=== PATIENT | female | born 1960 | race Caucasian/White ===

== ENCOUNTER 2016-09-18 09:38 | Emergency (ER) | payer OTHER ==
[~2016-09-18] VITALS: Ht 170.2 cm; Wt 95.3 kg
[~2016-09-18 09:38] MED LIST: ALDACTONE25 MG PO; AMITRIPTYLINE H25 M2 PO; ASPIRIN EC325 M1 PO; ASPIRIN325 PO; CIPROFLOXACIN500 M1 PO; COUMADIN 5 MG TA5 M1 PO; COUMADIN 5 MG TA5 MG PO; DIABETA 2.5MG2.5 MG PO; DILTIAZEM ER240 M1 PO; DOXYCYCLINE 10100 M1 PO; ELIQUIS5 MG PO; FERRO-TIME325 MG PO; FLECAINIDE ACE100 MG PO; FLOMAX0.4 MG PO; GLUCOPHAGE500 MG PO; GLYBURIDE 5 MG T5 M1 PO; HUMALOG100 UNIT/1 SQ; HYDROCERIN CREA1 JAR TOP; LANOXIN 0.250.25 M1 PO; LANTUS SC; LASIX 80 MG TAB80 M1 GT; LEVOTHYROXIN0.125 M1 PO; LEVOXYL100 MCG PO; LISINOPRIL10 MG PO; LOPRESSOR 50 MG50 M1 PO; LOPRESSOR PO; LOVASTATIN 20 M20 MG PO; NOHOMEMEDICATIONS; NORCO 5-325 TA1 EACH PO; PACERONE 200 M200 M1 PO; PERCOCET 7.5-51 EACH PO; PHENERGAN 25 MG25 M1 PO; PRADAXA150 MG PO; PRILOSEC 20 MG20 MG PO; PRILOSEC40 MG PO; PROPAFENONE 22225 MG PO; SIMVASTATIN40 MG PO; TAMSULOSIN HCL0.4 MG PO; TOPROL XL100 MG PO; VICODIN 5-5001 EACH PO; XANAX 0.25 MG0.25 MG PO; ZOFRAN4 MG PO
== END 2016-09-18 13:30 | disposition home or self-care (01) ==
LOC: ER 09:38
DX: M17.12 Unilateral primary osteoarthritis, left knee (principal); S09.90XA Unspecified injury of head, initial encounter; S90.32XA Contusion of left foot, initial encounter; E11.9 Type 2 diabetes mellitus without complications; I10 Essential (primary) hypertension; I48.91 Unspecified atrial fibrillation; E78.5 Hyperlipidemia, unspecified; E11.40 Type 2 diabetes mellitus with diabetic neuropathy, unspecified; Z88.5 Allergy status to narcotic agent; W01.198A Fall on same level from slipping, tripping and stumbling with subsequent striking against other object, initial encounter; Y93.89 Activity, other specified; Y92.89 Other specified places as the place of occurrence of the external cause; Y99.8 Other external cause status

== ENCOUNTER 2016-10-03 13:22 | Emergency (ER) | payer OTHER ==
[~2016-10-03] VITALS: Ht 170.2 cm; Wt 95.3 kg
== END 2016-10-03 14:33 | disposition home or self-care (01) ==
LOC: ER 13:22
DX: Z48.01 Encounter for change or removal of surgical wound dressing (principal); I10 Essential (primary) hypertension; I48.91 Unspecified atrial fibrillation; E78.5 Hyperlipidemia, unspecified; E09.40 Drug or chemical induced diabetes mellitus with neurological complications with diabetic neuropathy, unspecified; Z90.89 Acquired absence of other organs; Z88.5 Allergy status to narcotic agent

== ENCOUNTER 2018-08-11 07:10 | Inpatient (IN) | payer OTHER ==
[2018-08-11] VITALS (7 sets, daily range): BP systolic 175–1952; BP diastolic 93–138
[~2018-08-11] VITALS: Ht 170.2 cm; Wt 113.4 kg
--- NOTE | ~2018-08-11 | HC ---
[facility] [place] [address] CONSULTATION Name: GRACIELA NUÑEZ Room #: 354-P ADM IN M.R.#: [id number] Admission: 08/11/18 Attend Phys: Pablo Gardner MD Discharge: Date of : 56 Report #: [id number] THIS REPORT FOR: //name// CC: Pablo Morris DATE OF SERVICE: 08/11/2018 HISTORY OF PRESENT ILLNESS: The patient is a 58-year-old white female admitted with slurred speech. She is right handed. CT scan showed moderate atrophy, but MRI revealed acute infarct left posterior frontal as well as inferior reema. She also has had MRI of the lumbar and thoracic spine as noted. Question of a small perineural cyst at left T8-T9. She otherwise has some mild lumbar spondylosis. The patient complains of slurring of her speech and some weakness of both lower extremities with decreased function. Neurology is involved and we are seeing her in rehabilitation medicine consultation. ALLERGIES: CODEINE. MEDICATIONS: Please see the full medication listing. This includes vitamins, herbals, and supplements as well as over the counters per report. PAST MEDICAL HISTORY: Includes lymphedema, diabetes, hypertension, hyperlipidemia, kidney stones, bilateral lower extremity neuropathy, and cellulitis of the lower extremities. HABITS: No history of tobacco or alcohol abuse. SOCIAL HISTORY: She lives in a house with 2 sons, 2 steps in. She was on disability premorbidly with her lymphedema. She did not work, but her sons, both work. She did not utilize gait aids premorbidly. REVIEW OF SYSTEMS: No current complaints of chest pain, shortness of breath or abdominal discomfort. She notes the slurring of her speech. Denies any visual problems. Her upper extremity complaints, but does note bilateral lower extremity weakness and decreased function. PHYSICAL EXAMINATION: GENERAL: She is a pleasant, overweight 58-year-old white female with obvious dysarthria. If she speaks very slowly, she can be understood. VITAL SIGNS: Temperature 97.9, pulse 90, respirations 20, blood pressure 175/114. HEENT: She does have what appears to be some oral motor apraxia. EOMs appeared full. There was a hint of some disconjugate gaze. No obvious nystagmus. NEUROLOGIC: Functional range of motion of both upper extremities. Strength is a grade 4/5. Lower extremities: She does have significant chronic edema. [address] [address] CONSULTATION Name: GRACIELA NUÑEZ Room #: 354-P [facility] IN .R.#: [id number] Admission: 08/11/18 Attend Phys: Pablo Gardner MD Discharge: Date of : 56 Report #: [id number] Slight decreased sensation to proprioception bilateral large toes. Strength of the lower extremities is probably a grade 4- to 3+/5. DTRs are 1. There is no clonus. ASSESSMENT: A 58-year-old right-handed white female with the following problems: 1. 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 2. Dysarthria. 3. Rule out dysphagia. Speech therapy is involved. 4. Bilateral lower extremity weakness. 5. Functional mobility and ADL deficits. 6. Diabetes mellitus. 7. Hyperlipidemia. 8. Hypertension. 9. Chronic lymphedema. 10. Premorbid neuropathy. PLAN: Her stroke workup is underway. Therapy evaluations are underway as well to assess her current function. We will be glad to follow along with you regarding her rehab therapy needs. By: 1445 1554 Laci Rodas MD /nt
[2018-08-11 07:40] LABS: ABSOLUTE NEUTROPHILS 5.8 thou/uL (1.4-8.2); BASOPHILS 0.8 % (0.0-2.0); EOSINOPHILS 1.4 % (0.0-3.0); HEMATOCRIT 51.1 % (37.0-47.0); HEMOGLOBIN 17.5 gm/dL (12.0-15.0); LYMPHOCYTES 31.1 % (24.0-44.0); MCHC 34.3 g/dL (28.0-37.0); MCV 81.6 fL (80.0-100.0); MONOCYTES 7.7 % (1.0-8.0); PLATELET COUNT 163 thou/uL (150-400); RBC 6.26 mil/uL (4.20-5.00); RDW 14.3 % (10.5-14.5); WBC 9.9 thou/uL (4.0-11.0)
[2018-08-11 07:48] LABS: ANION GAP 7 mmol/L (7-16); BUN 21 mg/dL (7-18); CALCIUM 10.5 mg/dL (8.5-10.1); CHLORIDE 102 mmol/L (98-107); CO2 27 mmol/L (21-32); CREATININE 0.9 mg/dL (0.6-1.0); GLUCOSE 295 mg/dL (74-106); SODIUM 136 mmol/L (136-145)
[2018-08-11 07:50] LABS: APTT 27.3 Seconds (24.5-32.8); PROTIME 10.4 Seconds (9.3-11.4)
[2018-08-11 07:57] LABS: TROPONIN-I <0.06 ng/mL (<0.06)
[2018-08-11] MEDS ORDERED: LISINOPRIL40 MG PO (08:11)
[2018-08-11 08:31] LABS: BE(vivo) 2.1 mmol/L (-2 to +3); HCO3 27.3 mmol/L (22.0-26.0); PCO2 44.4 mmHg (35.0-45.0); pH 7.407 (7.360-7.450); sO2 95.3 % (92.0-98.0)
[2018-08-11 09:44] LABS: URINE BILIRUBIN NEGATIVE (Negative); URINE BLOOD TRACE (Negative); URINE CLARITY CLEAR; URINE COLOR YELLOW; URINE GLUCOSE-RANDOM* 3+ (Negative); URINE KETONES NEGATIVE (Negative); URINE LEUKOCYTES-REFLEX NEGATIVE (Negative); URINE NITRITE-REFLEX NEGATIVE (Negative); URINE PROTEIN (DIPSTICK) NEGATIVE (Negative); URINE UROBILINOGEN 0.2 E.U./dl (0.2-1.0)
--- NOTE | 2018-08-11 09:46 | EKG ---
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: : [id number] Requested By: Faustino Fuentes Order Number: [id number] MD: Hamilton Valenzuela Measurements Intervals [place] Rate: 91 P: ME: QRS: -8 QRSD: 96 T: 157 QT: 344 QTc: 424 Interpretive Statements Atrial fibrillation Poor R wave progression Nonspecific ST and T wave abnormality Compared to ECG 12/29/2015 07:14:22 No significant change was found Electronically Signed On 08-11-2018 9:45:47 RECOVERY OPERATOR HELPER by Hamilton Valenzuela [email or web address] <ELECTRONICALLY SIGNED> By: Hamilton Valenzuela MD, [facility] 08/11/18 0945 5 5 Hamilton Valenzuela MD, [facility] /EPI
[2018-08-11 10:32] LABS: TSH 5.818 uIU/mL (0.358-3.740)
--- NOTE | 2018-08-11 14:30 | NUR ---
ASSUMED PATIENT CARE FROM ED. PATIENT STATES THEY FELT WEAK LAST NIGHT AND THIS MORNING WHEN THEY WOKE UP HAD SLURRED SPEECH AND RIGHT SIDE FACIAL DROOP. PATIENT CAME TO [facility]. CT AND MRI WAS DONE, SEE RESULTS. NIH ON ARRIVAL WAS 6 IN ED, NIH WAS 3 UP[address] ARRIV[address] TO FLOOR[address] DID A SWALLOW EVAL UPON ARRIVAL TO FLOOR. CLEARED PATIENT TO EAT. KEEPING BLOOD PRESSURES ELEVATED TODAY 220/110. NURSE TO CALL FOR NEW ORDERS TOMORROW. PATIENT HAS SIGNIFICANT LYMPHEDEMA BLE. PATIENT USED TO GET LYMPEDEMA WRAPS BUT NO LONGER DOES. PATIENT STATES "THEY REALLY HELPED MY LEGS". NEURO ON CASE. ABLE TO MAKE NEEDS KNOWN.
[2018-08-12] VITALS (7 sets, daily range): BP systolic 141–224; BP diastolic 85–126
[2018-08-12 02:07] LABS: GLYCOHEMOGLOBIN (HGB A1C) 12.4 % (4.8-5.6)
--- NOTE | 2018-08-12 04:30 | NUR ---
PATIENT IS ALERT ORIENTED. PATIENT IS ON C PAP AT HS. PATIENT IS SBA WITH GAITBELT. PATIENT NIH WAS 3. PATIENT DENIES PAIN OR NAUSEA. PATIENT IS ON ROOM AIR DURING THE DAY. PATIENT IS RESTING COMFORTABLEY IN BED. WCM. PATIENT IS PROGRESSING TO GOALS.
[2018-08-12 04:49] LABS: ABSOLUTE NEUTROPHILS 4.4 thou/uL (1.4-8.2); BASOPHILS 0.5 % (0.0-2.0); HEMATOCRIT 47.9 % (37.0-47.0); LYMPHOCYTES 34.3 % (24.0-44.0); MCH 27.7 pg (26.0-34.0); MCHC 33.3 g/dL (28.0-37.0); MCV 83.2 fL (80.0-100.0); PLATELET COUNT 138 thou/uL (150-400); POLYS 57.2 % (36.0-66.0); RBC 5.76 mil/uL (4.20-5.00); RDW 14.5 % (10.5-14.5); WBC 7.7 thou/uL (4.0-11.0)
[2018-08-12 05:36] LABS: ANION GAP 9 mmol/L (7-16); BUN 15 mg/dL (7-18); CALCIUM 9.3 mg/dL (8.5-10.1); CHLORIDE 105 mmol/L (98-107); CHOLESTEROL 191 mg/dL (<200); CO2 26 mmol/L (21-32); CREATININE 0.7 mg/dL (0.6-1.0); GLUCOSE 209 mg/dL (74-106); HDL CHOLESTEROL 34 mg/dL (>40); LDL CHOLESTEROL 134 mg/dL (<100); MAGNESIUM 1.6 mg/dL (1.8-2.4); POTASSIUM 3.7 mmol/L (3.5-5.1); SODIUM 140 mmol/L (136-145); TC:HDL 5.6 Ratio (Not establshd); TRIGLYCERIDE 115 mg/dL (<150); VLDL 23 mg/dL (<40)
[2018-08-12 05:43] LABS: SERUM ASSESSMENT Clear
--- NOTE | 2018-08-12 13:04 | 2DMMODE ---
[facility] [address] [facility] [place] [address] 2 D/M-MODE ECHOCARDIOGRAM Name: SAVANNAHGRACIELA MAURICIO Room #: 354-P [facility] IN M.R.#: [id number] Admission: 08/11/18 Attend Phys: Pablo Gardner, Discharge: Date of : 56 Date of Service: 08/12/18 1304 Report #: [id number] THIS REPORT FOR: //name// APPROVED REPORT Study performed: 08/12/2018 12:19:14 EXAM: Comprehensive 2D, Doppler, and color-flow Echocardiogram Patient Location: Bedside Room #: 354 Status: routine BSA: 2.22 HR: 88 bpm BP: 194/126 mmHg Rhythm: Atrial Fibrillation Other Information Study Quality: Good Indications Atrial Fibrillation CVA. Hx: PAF, HTN, HLP, DM, morbid obesity. 2D Dimensions RVDd: 32.71 mm IVSd: 12.00 (7-11mm) LVOT Diam: 19.92 (18-24mm) LVDd: 47.52 mm PWd: 12.00 (7-11mm) Ascending Ao: 35.45 (22-36mm) LVDs: 36.67 (25-40mm) Aortic Root: 30.85 mm Volumes Left Atrial Volume (Systole) Single Plane 4CH: 84.10 mL Single Plane 2CH: 90.05 mL LA ESV Index: 42.00 mL/m2 Aortic Valve AoV Peak Elton.: 1.28 m/s AO Peak Gr.: 6.66 mmHg LVOT Max P.62 mmHg LVOT Max V: 0.95 m/s HATTIE Vmax: 2.31 cm2 Mitral Valve MV Decel. Time: 111.53 ms MV E Max Elton.: 1.20 m/s [facility] [address] [place] [address] 2 D/M-MODE ECHOCARDIOGRAM Name: SAVANNAHGRACIELA [facility] Room #: 354-P [facility] IN .R.#: [id number] Admission: 08/11/18 Attend Phys: Pablo Gardner, Discharge: Date of : 56 Date of Service: 08/12/18 1304 Report #: [id number] Pulmonary Valve PV Peak Elton.: 0.90 m/s PV Peak Gr.: 3.29 mmHg Tricuspid Valve TR Peak Elton.: 2.77 m/s RAP Estimate: 10.00 mmHg TR Peak Gr.: 30.73 mmHg PA Pressure: 41.00 mmHg Left Ventricle The left ventricle is normal size. Mild concentric left ventricular hypertrophy. Left ventricular systolic function is normal. LVEF is 50-55%. This study is not technically sufficient to allow evaluation of the LV diastolic function due to atrial fibrillation. Right Ventricle The right ventricle is normal size. The right ventricular systolic function is normal. Atria Left atrium is mildly dilated. No shunting noted with contrast bubble injection. Right atrium is borderline dilated. Aortic Valve Aortic valve leaflets are mildly thickened and calcified. Trace aortic regurgitation. There is no aortic valvular stenosis. Mitral Valve The mitral valve is normal in structure. Mild to moderate mitral regurgitation. No evidence of mitral valve stenosis. Tricuspid Valve The tricuspid valve is normal in structure. Mild tricuspid regurgitation. Estimated PAP is 40mmHG. Pulmonic Valve The pulmonary valve is normal in structure. Trace to mild pulmonic regurgitation. Great Vessels The aortic root is normal in size. The ascending aorta is normal in size. IVC is normal in size and collapses <50% with inspiration. Pericardium There is no pericardial effusion. [facility] [address] [place] [address] 2 D/M-MODE ECHOCARDIOGRAM Name: GRACIELA NUÑEZ [facility] Room #: 354-P [facility] IN M.R.#: [id number] Admission: 08/11/18 Attend Phys: Pablo Gardner, Discharge: Date of : 56 Date of Service: 08/12/18 1304 Report #: [id number] <Conclusion> The left ventricle is normal size. LVEF is 50-55%. The right ventricle is normal size. The right ventricular systolic function is normal. Left atrium is mildly dilated. Right atrium is borderline dilated. No shunting noted with contrast bubble injection. Aortic valve leaflets are mildly thickened and calcified. Trace aortic regurgitation. The mitral valve is normal in structure. Mild to moderate mitral regurgitation. The tricuspid valve is normal in structure. Mild tricuspid regurgitation. Estimated PAP is 40mmHG. The pulmonary valve is normal in structure. Trace to mild pulmonic regurgitation. There is no pericardial effusion. <ELECTRONICALLY SIGNED> By: Shilo Omer MD 08/12/18 1304 1304 1304 Shilo Omer MD /INF
--- NOTE | 2018-08-12 13:36 | NUR ---
PATIENT IS NOT MEDICALLY STABLE TO ADMIT TO ACUTE INPT REHAB TODAY, PER REPORT BY Jake TRONCOSO NP FOR REHAB. WE WILL CONTINUE TO FOLLOW AND WILL SEEK INSURANCE AUTHORIZATION WHEN PT DEMONSTRATES MEDICAL STABILITY FOR INTENSIVE INPT THERAPIES 3H/DAY. BP'S ARE BEING ADDRESSED PER PT'S ATTENDING, AND C ENGINEER FOR LANGUAGE HAS BEEN ADDED PER PIPE TRONCOSO DUE TO SPEECH CONCERNS.
--- NOTE | 2018-08-12 14:32 | NUR ---
INITIAL ASSESSMENT: DONTE reviewed chart and spoke with nursing and attending physician. Pt was admitted from home due to CVA. April consulted and is following pt for possible admission to in acute rehab pending insurance authorization. DONTE met with pt at bedside. Introduced role of SW. Pt is alert/orientated x 4. Pt reports that she lives at home with her family. Prior to admission, pt was independent with ADLs. No use of DME. No hx of HH or SNF/Rehab placement. Pt is agreeable with considering rehab. DONTE discussed case with liaison inspection laboratory assistant who states they will submit for insurance authorization in anticipate of Wednesday admission to . DONTE is following to assist as needed with discharge planning.
--- NOTE | 2018-08-12 14:57 | NUR ---
ASSUMED PATIENT CARE AT 0715. A&OX4. NIH 2. PATIENT HAS RIGHT SIDED FACIAL DROOP AND SLURRED SPEECH. ALL BLOOD PRESSURE MEDS RESUMED. CARDIOLOGY CONSULTED TODAY SINCE PATIENT WAS ON ELIQUIS AND STILL HAD CVA. NEURO ON CASE. [facility] [place] [facility] [place] TODAY. PLAN IS TO MONITOR OVER THE WEEKEND. GET BLOOD PRESSURE AND DIABETES UNDER CONTROL AND DISCHARGE TO [address] [place] [address] ON WEDNESDAY.
--- NOTE | 2018-08-12 15:54 | NUR ---
Attempted to do inpatient eval for lower extremity lymphedema this date. Pt is not available due to being in an MRI. Nursing states that she would be umavailable for about 40 minutes so no initial evalualtion for lymphedema has been done this date. Will re-attempt next treatment week . Amarilis Mckay,PT/CLT
--- NOTE | 2018-08-12 16:54 | NUR ---
WOUND CONSULT: PT. WAS SEEN TODAY BY DR. KAUR AND MYSELF. PT. HAS LYMPEDEMA TO HER BILATERAL LOWER EXTREMITYS. THERE ARE NO ULCERATIONS NOTED. RECOMMENDATIONS: LYMPEDEMA THERAPY PT. AND STAFF NURSE WERE INSTRUCTED ON PLAN OF CARE.
--- NOTE | 2018-08-13 00:21 | NUR ---
patient recived two 500ml bolus. provider aware of bp. orders to monitor mental status
--- NOTE | 2018-08-13 02:36 | NUR ---
patient is alert and oriented. patient is times one assist with walker. patient is on room air. cpap hs but patient doesnt like cpap for very long. patient is on continious pulse ox hs for sleep apnea. patient was given 1000ml blous to encourage bp to rise. provider notified that bp only got to 159/ 80's and orders recived to just monitor for changes in orientation. patient deneis pain. patients nih is 3 due to slurring and facial droop. patient is resting comfortabley in bed. wcm. patient is progressing to goals. lymphaedema nurse will consult on wednesday. lower extremities elevated in the mean time.
--- NOTE | 2018-08-13 02:50 | NUR ---
PATIENT STATED SHE WAS [facility].
[2018-08-13 03:50] VITALS: BP 167/98
[2018-08-13 08:45] VITALS: BP 162/103
[2018-08-13 09:44] LABS: HEMATOCRIT 47.7 % (37.0-47.0); HEMOGLOBIN 15.8 gm/dL (12.0-15.0); MCH 27.8 pg (26.0-34.0); MCHC 33.1 g/dL (28.0-37.0); MCV 83.9 fL (80.0-100.0); RBC 5.69 mil/uL (4.20-5.00); RDW 14.6 % (10.5-14.5); WBC 9.8 thou/uL (4.0-11.0)
[2018-08-13 09:53] LABS: CALCIUM 9.6 mg/dL (8.5-10.1); CREATININE 0.9 mg/dL (0.6-1.0); MAGNESIUM 1.8 mg/dL (1.8-2.4); POTASSIUM 3.9 mmol/L (3.5-5.1)
[2018-08-13 12:06] VITALS: BP 187/123
[2018-08-13 15:43] VITALS: BP 164/86
--- NOTE | 2018-08-13 17:47 | NUR ---
ASSUMED PATIENT CARE AT 0700. A/O X4. NIH X3. PATIENT FEELS WEAKNESS GENERLIZED. UNSTEADY JUN WHEN WALK. ELEVATED BP THAT DR WEST LIKE KEEP AT 150-180 SYSTOLIC. FMILLY BEDSIDE. TOLERATED PUREED DIET WITH THIN LIQUID. SLOWLY TOWARDS POC GOALS.
[2018-08-13 19:11] VITALS: BP 154/101
[2018-08-14 02:45] VITALS: BP 159/100
[2018-08-14 05:30] LABS: HEMATOCRIT 46.2 % (37.0-47.0); HEMOGLOBIN 15.5 gm/dL (12.0-15.0); MCH 27.3 pg (26.0-34.0); MCHC 33.5 g/dL (28.0-37.0); MCV 81.5 fL (80.0-100.0); RBC 5.68 mil/uL (4.20-5.00); RDW 14.4 % (10.5-14.5)
[2018-08-14 05:43] LABS: CALCIUM 9.3 mg/dL (8.5-10.1); CREATININE 0.8 mg/dL (0.6-1.0); MAGNESIUM 1.9 mg/dL (1.8-2.4); POTASSIUM 3.6 mmol/L (3.5-5.1)
--- NOTE | 2018-08-14 06:03 | NUR ---
PATIENT IS SLOWLY PROGRESSING IN HER CARE PLAN. VITAL SIGNS STABLE THROUGHOUT SHIFT WITH BLOOD PRESSURE IN ACCEPTABLE RANGE. FULLY ORIENTED, PATIENT IS ABLE TO COMMUNICATE NEEDS EFFECTIVELY AND PARTICIPATE IN CARE. NIH STROKE ASSESSMENT PER PROTOCOL WITH PATIENT STAYING AT 3. PATIENT WAS UNWILLING TO WEAR CPAP OVERNIGHT, SO OXYGEN PER NASAL CANNULA PROVIDED FOR COMFORT. PATIENT WAS ABLE TO AMBULATE TO THE RESTROOM MULTIPLE TIMES WITH ASSISTANCE INCIDENT FREE. SWALLOW PRECAUTIONS FOLLOWED PER ORDERS. CONTINUE PLAN OF CARE.
[2018-08-14 09:00] VITALS: BP 191/99
[2018-08-14 11:22] VITALS: BP 157/99
[2018-08-14 14:38] VITALS: BP 158/95
--- NOTE | 2018-08-14 18:35 | NUR ---
PATIENT STATES SHE FEELS STRONGER TDOAY. AMBULATED TO BATHROOM WITH STEADY GAIT USING A WALKER. SHE IS ALERT ORIENED X4. DENIES PAIN. CONT OF BOWEL AND BLADDER. WILL CONT WITH PLAN OF CARE WHICH INCLUDES GOING TO REHAB IN THE AM. BP KEPT BETWEEN 160-[address] ORDERS.
[2018-08-14 19:15] VITALS: BP 177/97
[2018-08-14 20:50] VITALS: BP 151/78
[2018-08-15 03:26] VITALS: BP 163/111
--- NOTE | 2018-08-15 03:28 | NUR ---
PATIENT IS PROGRESSING IN HER CARE PLAN. VITAL SIGNS STABLE WITH PATIENT HAVING NO COMPLAINTS OF PAIN OR NAUSEA. PATIENT IS FULLY ORIENTED AND ABLE TO CALL APPROPRIATELY FOR NEEDS. NIH ASSESSED FREQUENTLY WITH PATIENT SCORING STAYING CONSISTENTLY AT 3. PATIENT IS BREATHING FINE ON ROOM AIR EVIDENCED BY READINGS FROM CONTINUOUS SATURATION MONITOR. SHE DID REFUSE CPAP AGAIN OVERNIGHT. SHE HAS BEEN UP MULTIPLE TIMES TO BATHROOM WITH STANDBY ASSISTANCE INCIDENT FREE. PATIENT IS ANXIOUS FOR POSSIBLE DISCHARGE TO [address] [place], [place] [address] TODAY. CURRENTLY AWAITING INSURANCE AUTHORIZATION. CONTINUE PLAN OF CARE.
[2018-08-15 05:33] LABS: HEMATOCRIT 47.1 % (37.0-47.0); HEMOGLOBIN 15.6 gm/dL (12.0-15.0); MCH 27.6 pg (26.0-34.0); MCHC 33.1 g/dL (28.0-37.0); MCV 83.5 fL (80.0-100.0); RBC 5.64 mil/uL (4.20-5.00); RDW 14.9 % (10.5-14.5); WBC 8.8 thou/uL (4.0-11.0)
[2018-08-15 05:40] LABS: CALCIUM 9.3 mg/dL (8.5-10.1); CREATININE 0.8 mg/dL (0.6-1.0); MAGNESIUM 1.9 mg/dL (1.8-2.4); POTASSIUM 3.7 mmol/L (3.5-5.1)
[2018-08-15 07:56] VITALS: BP 167/104
--- NOTE | 2018-08-15 08:13 | HC ---
[facility] [place] [address] CONSULTATION Name: GRACIELA NUÑEZ Room #: 354-P [facility] IN M.R.#: [id number] Admission: 08/11/18 Attend Phys: Pablo Gardner MD Discharge: Date of : 56 Report #: [id number] THIS REPORT FOR: //name// CC: Pablo Morris DATE OF SERVICE: 08/12/2018 CHIEF COMPLAINT: Bilateral lower extremity lymphedema. HISTORY OF PRESENT ILLNESS: This is a 58-year-old female patient who was admitted to the hospital with having lower extremity weakness, left greater than the right. She had slurred speech and was felt to have a cerebrovascular accident. She is noted to have bilateral lower extremity edema. I have been asked to see her with regard to control of the edema and evaluation of her dry skin. PAST MEDICAL HISTORY: Positive for hypertension, hyperlipidemia, diabetes mellitus, CVA, chronic lymphedema, hypothyroidism. She has a history of diabetes mellitus. ALLERGIES: CODEINE. MEDICATIONS: Include Eliquis, Synthroid, Glucophage, Elavil, Toprol-XL, Zestril. SOCIAL HISTORY: Negative for alcohol or tobacco use. FAMILY HISTORY: Noncontributory. REVIEW OF SYSTEMS: CONSTITUTIONAL: Denies fever, chills, or weight loss. NEUROLOGICAL: The patient does have some weakness as well as slurred speech. ENT: The patient denies earache, nasal drainage or sore throat. CARDIOVASCULAR: No chest pain, palpitations, diaphoresis. PULMONARY: The patient denies cough or shortness of breath. GASTROINTESTINAL: No nausea, vomiting or abdominal pain. ORTHOPEDIC: The patient does complain of swelling and dry skin, but no pain or ulceration to her lower extremities. Other systems in a 14-point review of systems are negative. PHYSICAL EXAMINATION: VITAL SIGNS: At this time include temperature 98.2, pulse 80, respiratory rate 24, blood pressure 156/86. GENERAL: This is a chronically ill-appearing female patient who appears to be in minimal distress. [address] [address] CONSULTATION Name: GRACIELA NUÑEZ MAURICIO Room #: 354-P ADM IN M.R.#: [id number] Admission: 08/11/18 Attend Phys: Pablo Gardner MD Discharge: Date of : 56 Report #: [id number] HEENT: Head normocephalic. Nose and throat are clear. NECK: Supple. LUNGS: Clear. HEART: Regular. ABDOMEN: Soft. Bowel sounds present. EXTREMITIES: Demonstrate significant lymphedema with 3+ edema bilaterally. She has dry skin. No evidence of infection and no weeping or ulceration at this time. CLINICAL IMPRESSION: 1. Lymphedema, bilateral lower extremities. 2. Stasis type dermatitis, bilateral lower extremities. 3. Diabetes mellitus. 4. Acute cerebrovascular accident. 5. Hypertension. 6. Hyperlipidemia. 7. Atrial fibrillation, currently on Eliquis. RECOMMENDATIONS: At this point in time, I recommend AmLactin cream to the lower extremities daily, will recommend lymphedema therapy with MLD and compression bandaging, will continue to follow her here in the hospital. I appreciate being asked to see her in consultation. <ELECTRONICALLY SIGNED> By: Jadon Hurtado MD 08/15/18 0813 1702 0407 Jadon Hurtado MD /nt
--- NOTE | 2018-08-15 09:54 | HC ---
[facility] [address] CONSULTATION Name: SAVANNAHGRACIELA MAURICIO Room #: 354-P ADM IN M.R.#: [id number] Admission: 08/11/18 Attend Phys: Pablo Gardner MD Discharge: Date of : 56 Report #: [id number] THIS REPORT FOR: //name// CC: Pablo Morris DATE OF SERVICE: 08/11/2018 HISTORY OF PRESENT ILLNESS: This is a 58-year-old female patient who was seen by me in the Emergency Room. I discussed the patient with the Emergency Room physician and I discussed the patient with a nurse practitioner who is admitting this patient. The patient was admitted because she woke up with stroke-like symptoms. The symptoms were predominantly weakness on one side of the face. She also gives somewhat of an unusual history that she had some weakness in the leg. She has lymphedema in the lower extremities and before that she was able to walk but yesterday night, she became weak there. She has a pretty significant weakness there, it does not fluctuate. Her speech is slurred. She said she is able to understand the things. She is right handed. REVIEW OF SYSTEMS: A 14-point review of system was carried out. The relevant 14-point review of system is that she is a diabetic. She has hypertension. Her blood pressure, she checks twice and it runs about 200 systolic. Blood sugar runs about 150. She has lymphedema of both lower extremities. She has a history of atrial fibrillation and she is on anticoagulation. She is compliant with the anticoagulation. She started having some back pain about 1 week ago. She had prior eye symptom, but does not have any present eye symptom. She denies any ENT, respiratory, GI, , constitutional, dermatological, hematological, psychiatric, throat, allergic symptom, which are new. PAST MEDICAL HISTORY: Negative for any stroke. FAMILY HISTORY: Negative for early age stroke. SOCIAL HISTORY: She does not smoke or drink any alcohol. PHYSICAL EXAMINATION: NEUROLOGIC: Indicates she is alert, responsive. She does have speech difficulty, is mainly for expression. It is not very pronounced. Her memory and fund of knowledge looks unremarkable. Cranial nerve examination 2-12 on my examination, right facial looks somewhat weak. She is pretty weak in both lower extremities. Her position sense is present. Reflexes in the upper extremities are elicitable. Tone is difficult to tell with so much edema. She has no meningeal sign. She does not appear to be ataxic, but I did not make her walk because she said she cannot walk anymore. I could not look at the fundus. GENERAL: She is an obese individual who does not have any problem with the vision and hearing, the best I can tell. [facility] [address] [facility] [place] [address] CONSULTATION Name: GRACIELA NUÑEZ MAURICIO Room #: 354-P [facility] IN M.R.#: [id number] Admission: 08/11/18 Attend Phys: Pablo Gardner MD Discharge: Date of : 56 Report #: [id number] EXTREMITIES: She has pretty significant lymphedema. Because of that, pulses are difficult to tell. HEART: Irregular. RESPIRATORY: She does not have any respiratory difficulty or rhonchi. VITAL SIGNS: Her blood pressure is 193/101, respirations 14, pulse is 95. LABORATORY DATA: Her hemoglobin is 17.5, which is somewhat high. Her GFR was 64. For some reason, her calcium is a little bit high at 10.5. Her last HDL was low. Her CT angiogram demonstrated multivessel intracranial disease that will need further workup. IMPRESSION: 1. This patient appeared to have stroke which is somewhat unusual when the patient is on anticoagulation, but can happen. Since the stroke occurred in spite of being on anticoagulation, she does need workup for central nervous system angiitis which is always difficult. 2. Uncontrolled hypertension for a long time. That needs to be controlled, but we need to look at the MRI. If she does have an acute stroke, then we will cautiously lower the blood pressure because she says usually her blood pressure runs about 200. 3. Diabetes needs to be tightly controlled. 4. Leg weakness is unusual. Until we find a stroke in the brainstem area, we need to look for the cause of the leg weakness. Since she is on anticoagulation, we need to make sure that she is not developing any epidural hematoma and she needs MRI for that. RECOMMENDATIONS: 1. MRI of the brain. 2. MRI of the lumbar spine. 3. MRI of the thoracic spine. 4. I will suggest a Rheumatology consult to address the question of vasculitis. 5. Control of her extensive vascular risk factors. Thank you very much for this referral and if you have any question, please feel free to contact me. <ELECTRONICALLY SIGNED> By: Aristides Goldstein MD 08/15/18 0954 0949 [id number] Aristides Goldstein MD /nt
[2018-08-15 11:48] VITALS: BP 173/100
[2018-08-15 16:07] VITALS: BP 171/98
--- NOTE | 2018-08-15 16:18 | NUR ---
SW reviewed chart and spoke with nursing and attending physician. Pt is progressing towards goals for discharge. [facility] is able to accept pt pending insurance authorization. SW met with pt at bedside to provide update. Pt is aware and agreeable with plan to d/c to . SW discussed SNF placement, should insurance not approve 5. Provided pt with list of in-network SNFs for review. SW discussed with director of rehabilitation. DONTE is following to assist as needed with discharge planning.
--- NOTE | 2018-08-15 17:32 | NUR ---
ASSUMED PATIENT CARE AT 0700. A/O X4. NIH X3. SLURRED SPEECH STILL. UP WALK IN HALLWAY WITH WALKER. BLE WRAP WITH OSKAR. WAITTING FOR INSURANCE AUTHORIZATION TO GO 5N. PROGRESSING TOWARDS POC GOALS
[2018-08-15 19:55] VITALS: BP 199/113
[2018-08-15 23:30] VITALS: BP 167/89
--- NOTE | 2018-08-16 01:11 | NUR ---
2000 PATIENT AFIB ON TELEMETRY HEART RATE 110'S AT THIS TIME. ASSISTED UP TO BATHROOM WITH GAIT BELT AND WALKER. CONTINUE TO ASSES. 2220 HEART RATE INCREASING 120-160'S. DR. Zora BOLIVAR NOTIFIED. ONETIME DOSE OF TOPROPOL 50 MG. GIVEN. 0005 HEART RATE REMAINS IN 120-150'S. NOTIFIED Helio WATT NP. ORDERS RECIEVED 0030 CARDIZEM 20 MG GIVEN X1. TEMP. 99 0040 HEART RATE AFIB 110'S 0100 HEART RATE AFIB 90'S. PATIENT RESTING QUIETLY.
[2018-08-16 03:07] LABS: HEMATOCRIT 49.4 % (37.0-47.0); HEMOGLOBIN 16.3 gm/dL (12.0-15.0); MCH 27.3 pg (26.0-34.0); MCHC 33.1 g/dL (28.0-37.0); MCV 82.7 fL (80.0-100.0); RBC 5.98 mil/uL (4.20-5.00); RDW 14.3 % (10.5-14.5); WBC 13.3 thou/uL (4.0-11.0)
[2018-08-16 03:14] LABS: CALCIUM 9.6 mg/dL (8.5-10.1); MAGNESIUM 1.8 mg/dL (1.8-2.4); POTASSIUM 3.9 mmol/L (3.5-5.1)
[2018-08-16 03:22] LABS: APTT 34.6 Seconds (24.5-32.8); INR 1.1
[2018-08-16 04:35] VITALS: BP 147/77
--- NOTE | 2018-08-16 07:35 | NUR ---
0245 PATIENT ASSISTED UP TO COMODE WITH MAX ASSIST OF 2. PATIENT STATES WEAKER ON RIGHT SIDE. CODE STROKE CALLED. VIDEO OPERATOR AND BOOK SHELVER HERE. REMAINS WITH SLURRED SPEECH BUT ALERT AND ORIENTED X4. WEAKER ON RIGHT SIDE. VSS. TELEMTRY SHOWS AFIB 90'S. TAKEN TO CT SCAN. 0348 Helio WATT VIDEO OPERATOR CALLED FLOOR WITH CT RESULTS PAST TALKING WITH RADIOLIGIST. STATES NO ACUTE PROCESS SO NO NEED TO CALL DR WEST. PATIENT REMAINS IN 354. VSS. 0600 PATIENT STATES FEELING BETTER. NO FURTHER COMPLAINTS OF NAUSEA. RIGHT SIDE REMAINS WEAK WITH MODERATE SURVEY CHIEF.
[2018-08-16 07:47] VITALS: BP 152/91
--- NOTE | 2018-08-16 08:34 | EKG ---
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: cam : 1960 Requested By: Cheryl Guillermo Order Number: [id number] MD: Hamilton Valenzuela Measurements Intervals [place] Rate: 103 P: OR: QRS: -12 QRSD: 106 T: 162 QT: 340 QTc: 445 Interpretive Statements Atrial fibrillation Poor R wave progression Nonspecific ST and T wave abnormality Compared to ECG 08/11/2018 07:26:58 No significant change was found Electronically Signed On 08-16-2018 8:33:53 OUTSIDE COLLECTOR by Hamilton Valenzuela [email or web address] <ELECTRONICALLY SIGNED> By: Hamilton Valenzuela MD, [facility] 08/16/18 0833 0307 6 Hamilton Valenzuela MD, [facility] /EPI
--- NOTE | 2018-08-16 10:52 | NUR ---
WOUND FOLLOW UP: PT. WAS SEEN TODAY BY DR. KAUR AND MYSELF. PT. WRAPS ARE C/D/I AT THIS TIME. PT. HAS FUNGAL RASH NOTED TO HER BILATERAL GROIN AND PANNUS. ORDERS WERE PLACED TO TREAT THIS. RECOMMENDATIONS: CONTINUE WITH CURRENT PLAN OF CARE. PT. AND STAFF NURSE WERE INSTRUCTED ON PLAN OF CARE.
[2018-08-16 11:17] VITALS: BP 136/83
--- NOTE | 2018-08-16 13:37 | NUR ---
ATTEMPTED TO SEE PT THIS DATE TO CHECK ON BANDAGING, PT IS AT TEST/SCAN. WILL RE-ATTEMPT TOMORROW. PERLA MAGDALENO PT/CLT
[2018-08-16] MEDS ORDERED: METOPROLOL SUCC25 M1 PO (14:41)
--- NOTE | 2018-08-16 14:41 | NUR ---
This RN reviewed and agrees with the assessments and charting done by nursing home admissions director Dejah Meneses.
[2018-08-16] MEDS ORDERED: ATORVASTATIN CA40 MG PO (14:42)
[2018-08-16] MEDS ORDERED: LANTUS100 UNIT/M SUBQ (14:42)
--- NOTE | 2018-08-16 15:06 | NUR ---
DISCHARGE NOTE: DONTE reviewed chart and spoke with nursing and attending physician. Pt is medically stable for discharge to today. DONTE discussed case with rehab assistant who states they did get insurance authorization and can accept pt today. DONTE met with pt at bedside to provide update. Pt is aware and agreeable with discharge plan. Pt will move to room 515. Discharge orders completed. DONTE notified [facility] rehab assistant. Rehab CM to follow and assist as needed with discharge planning.
--- NOTE | 2018-08-16 19:36 | NUR ---
Assumed care of patient at 0700. Vitals have been stable; patient has been with low grade temp today. Order for UA placed before discharge to [facility] and passed along to Sister Maryellen RN on report. Otherwise, VSS. Complaints of headache pain, treated with Tylenol. Patient also reports right hip burning pain, intemittent the last couple days. Mainly with activity. Reported to Dr. Gardner; order for right hip xray. Alert and oriented x4; NIH as charted. Patient still with right facial droop, slurred speech, aphasia and right arm drift. Patient was able to get up with therapy today and walked hallways with one assist, gait belt and walker. Is moderate assist due to right sided weakness. Discharge orders received to go to [facility] rehab. Report called to Sister Maryellen. Telemetry discontinued. Kept IV access for time being. Belongings gathered. Transported to room 515 via wheelchair.
== END 2018-08-16 15:59 | DRG 66 ==
LOC: ER 07:10 → EROBS 08:12 → 3W 08:12
PROVIDERS: Emergency Medicine; Nurse Practitioner; Nurse Practitioner Acute Care; ADMIT Internal Medicine
DX: I63.532 Cerebral infarction due to unspecified occlusion or stenosis of left posterior cerebral artery (principal); I10 Essential (primary) hypertension; E78.5 Hyperlipidemia, unspecified; E03.9 Hypothyroidism, unspecified; I89.0 Lymphedema, not elsewhere classified; E11.21 Type 2 diabetes mellitus with diabetic nephropathy; E11.42 Type 2 diabetes mellitus with diabetic polyneuropathy; M47.816 Spondylosis without myelopathy or radiculopathy, lumbar region; R47.1 Dysarthria and anarthria; I87.2 Venous insufficiency (chronic) (peripheral); I48.0 Paroxysmal atrial fibrillation; G93.89 Other specified disorders of brain; E83.42 Hypomagnesemia; E11.65 Type 2 diabetes mellitus with hyperglycemia; E66.9 Obesity, unspecified; Z88.8 Allergy status to other drugs, medicaments and biological substances; Z79.899 Other long term (current) drug therapy; Z87.442 Personal history of urinary calculi; Z79.01 Long term (current) use of anticoagulants; Z68.39 Body mass index [BMI] 39.0-39.9, adult
CPT/HCPCS: 10879

== ENCOUNTER 2018-08-16 13:09 | Inpatient (IN) | payer OTHER ==
[~2018-08-16] VITALS: Ht 170.2 cm; Wt 118.8 kg
[~2018-08-16 13:09] MED LIST changes: +LISINOPRIL40 MG PO
[2018-08-16] MEDS ORDERED: METOPROLOL SUCC25 M1 PO (14:41)
[2018-08-16] MEDS ORDERED: ATORVASTATIN CA40 MG PO (14:42)
[2018-08-16] MEDS ORDERED: LANTUS100 UNIT/M SUBQ (14:42)
[2018-08-16 16:30] VITALS: BP 147/80
[2018-08-16 20:11] VITALS: BP 177/104
--- NOTE | 2018-08-17 04:56 | NUR ---
ASSESSMENT: PT REMAIN ALERT AND ORIENT TIMES FOUR. TURNS SELF, NEEDS ENCOURAGEMENT TO DO SO. DENIES PAIN, SOB AND N/V. SLOW PROGRESS TOWARDS DC GOALS. ARRIVED TO THE UNIT AT SHIFT CHANGE ON 08/16/18, FAMILY WAS AT THE BEDSIDE AT THE BEGINNING OF THE SHIFT. PT SLEEPY BUT EASY TO AROUSE. AT 0341 PT WAS PLACED ON 2 LITERS OF O2, CONTINUOUS PULSE OX ALARM BUT PT RECOVERS WELL. PT RT PT WAS PLACED ON OXYGEN DURING SLEEP. SLOW PROGRESS TOWARDS DC GOALS, WILL CONTINUE TO MONITOR.
[2018-08-17 05:41] LABS: HEMATOCRIT 48.5 % (37.0-47.0); HEMOGLOBIN 15.7 gm/dL (12.0-15.0); MCH 27.2 pg (26.0-34.0); MCHC 32.4 g/dL (28.0-37.0); MCV 84.1 fL (80.0-100.0); RBC 5.77 mil/uL (4.20-5.00); RDW 14.7 % (10.5-14.5)
[2018-08-17 05:59] LABS: CALCIUM 9.4 mg/dL (8.5-10.1); CREATININE 0.9 mg/dL (0.6-1.0); POTASSIUM 3.7 mmol/L (3.5-5.1)
[2018-08-17 08:53] VITALS: BP 149/84
--- NOTE | 2018-08-17 13:56 | NUR ---
chart review. cm visited with pt at bedside, son in room as well- resting with eye closed " he works nights"/joe. intro to cm, team meetings, home health, dcp, and transition of care. Pt reported " live with daughter and son, in house 2 steps with hr both side to enter home. no stairs inside. retired. independent prior to hospital. no dme, manage own medication, was checking bs at home 2 x day. not on any insulin. still driving vehicle. no hh or rehab in past."/joe. will cont following as needed for dc needs.
--- NOTE | 2018-08-17 13:59 | NUR ---
Nutrition: pt admitted with acute frontal lobe infarct. Seen due to consult for poor intake. Pt reports appetite to be improving. Was previously on pureed diet which she disliked. Diet now mechanically altered with nectar thick liquids. Pt orders some meals. PO improved to 50% of meals. Weights per hx highly variable and pt now with severe lymphedema in BLE. BMI 42, extreme class 3 obesity. BG 117-175. A1C 12.4, poorly controlled DM with hx of noncomplance. Does not desire diet review at this time, RD available PRN. Low nutrition risk.
--- NOTE | 2018-08-17 14:45 | NUR ---
I have reviewed the documentation by MADELEINE RAMOS ON 08/17/18 and I concur with it. EUGENE ROGERS A
--- NOTE | 2018-08-17 15:06 | NUR ---
ASSUMED CARE OF PT AT 0715. PT IS A&OX4. HAS SLURRED SPEECH. IS ON 2L OF O2 NC & CONTINUOUS PULSE OX. DENIES PAIN. IS UP WITH 1 ASSIST, GB, WALKER TO BATHROOM. FALL PRECAUTIONS & HOURLY ROUNDING MAINTAINED. PT IS STABLE. HAS BILAT LE LYMPHEDEMA WITH WRAPS IN PLACE. NURSE TO COME BY TOMORROW AT 1100 TO WRAP PT'S LEGS. LABS & VITALS REVIEWED. PT WEARS BRIEFS FOR INCONT. IS ABLE TO REPOSITION & TURN SELF IN BED. WILL CONTINUE TO MONITOR.
--- NOTE | 2018-08-17 15:25 | NUR ---
WOUND CONSULT: PT. WAS SEEN TODAY BY DR. KAUR AND MYSELF. PT. WAS BEING FOLLOWED ON THE ACUTE SIDE OF THE HOSPITAL BY THE WOUND CARE TEAM. PT. HAS CHRONIC BILATERAL LOWER EXTREMITY LYMPEDEMA. PT. IS BEING TREATED BY OT WITH LYMPDEDMA WRAPS. PT. IS TOLERATING THIS WELL. PT. HAS MILD EXCORATION TO HER GROIN AND PANNUS. RECOMMENDATIONS: CONTINUE WITH LYMPEDEMA WRAPS TO BILATERAL LOWER EXTREMITYS MYSTAIN CREAM TO GROIN AND UNDER PANNUS PT. AND STAFF NURSE WERE INSTRUCTED ON PLAN OF CARE.
--- NOTE | 2018-08-17 15:50 | NUR ---
Late entry: PT ADMITTED TO ROOM 15 ROM 3 [place] FOR ACUTE INFRARCT LEFT POSTERIOR FRONTAL AND INFERIOR BRENDA, SMALL BRAIN MASS POSSIBLE MENINGIOMA. HAS BEEN FOLLOW UP WIT DR. SOMERS, AND DR. KAUR AT 3W. PATIENT A/O X4. HAS SLURRED SPEECH AND DYSARTHRIA. HAS RIGHT SIDE DROOPING PER 3WEST NURSE BUT DOING BETTER NOW. DENIES PAIN. SKIN INTACT. HAS FUNGAL RASH ON BILATERAL GROINS AND PANNUS BUT THEY ARE LOOK BETTER. VSS ON ROOM AIR. NEUROLOGIST PREFER TO KEEP B/P FROM 150-180. PT HAS HX OF AFIB, RATE IS CONTROL TODAY. MED ORDERS FAXED TO PHARMACIST AND GAVE REPORT TO NIGHT NURSE TO CONTINUE TO MONITOR, IAN WILL BE HERE TOMORROW TO GO OVER MEDS LIST. PT IS ON CARB CONTROL 2000 MARIAA. BS 117. ATE 20% DINNER. ENCOURAGED FAMILY TO ASSIST PT TO ORDER FOOD SHE LIKE TO EAT. PUT REQUESTS FOR MEALS TOMORROW ON [employer]. OFFERED SUPPORTIVE CARE. ORIENTED AND DISCUSSED ABOUT REHAB ROUTINE. PT SIGNED ADMISSION CONSENT. ASSISTED PT TO GO TO BATHROOM PER REQUEST. PT SAID SHE HAD BM TODAY. UP WITH A WALKER, MOD ASSIST. HAS LEG EDEMA WRAPPED BY LYMPHALOMA, PT DENIES WOUNDS. FALL PRECAUTIONS IN PLACE. PT IS RESTING COMFORTABLE IN BED. GAVE REPORT TO NIGHT NURSE TO CONTINUE TO MONITOR.
[2018-08-17 19:56] VITALS: BP 140/81
--- NOTE | 2018-08-18 03:43 | NUR ---
ASSUMED CRE AT START OF SHIFT PT UP IN CHAIR, ASSIST TO BATHROOM GAIT SLOW BUT STEADY, ASSISTED PT INTO CHANGING INOT HOSPITIAL GOWN FOR SLEEP. DISCUSSED PLAN OF CARE AND PT AGREEABLE AND VERBALIZED UNDERSTANDING.
[2018-08-18 09:35] VITALS: BP 143/78
--- NOTE | 2018-08-18 19:50 | NUR ---
ASSUMED CARE AT APPROX 0715. PATIENT A/O X4. VSS. DENIES PAIN. URINE DARK, FOWEL SMELLING. PROVIDER AWARE. NO NEW ORDERS. LEGS WRAPPED PER LYMPHEDEMA PT. BOWEL MOVEMENT THIS DATE, LOOSE. NIGHT RN NOTIFIED, STOOL SOFTNER TO BE HELD. PATIENT PARTICIPATED IN THERAPY. FALL PRECAUTIONS IN PLACE. UP X1 ASSIST GB AND WALKER. RESTING IN RECLINER AT CHANGE OF SHIFT.
[2018-08-18 20:20] VITALS: BP 135/88
--- NOTE | 2018-08-19 04:04 | NUR ---
UP TO BATHROOM WITH WALKER, GAIT BELT, AND CONTACT GUARD ASSIST. IT TOOK EXTRA EFFORT AT FIRST ON HER PART TO STAND UP FROM THE CHAIR. OXYGEN 2 LITERS PERNASAL CANNULA. PILLS ONE AT A TIME WITH APPLESAUCE FOLLOWED BY SIPS OF HOMEY THICK LIQUIDS
[2018-08-19 09:01] VITALS: BP 141/98
--- NOTE | 2018-08-19 17:38 | NUR ---
WOUND FOLLOW UP: PT. WAS SEEN TODAY BY DR. KAUR AND MYSELF. PT. LEGS WERE WRAPED TODAY BY OT IN THE LYMPEDEMA WRAPS. PT. REPORTS THAT THEY ARE FEELING BETTER AND SWELLING IS DOWN. RECOMMENDATIONS: CONTINUE WITH CURRENT PLAN OF CARE. PT. AND STAFF NURSE WERE INSTRUCTED ON PLAN OF CARE.
[2018-08-19 20:00] VITALS: BP 144/80
--- NOTE | 2018-08-20 03:48 | NUR ---
TOLERATING PILLS ONE AT A TIME WITH APPLESAUCE AND A FEW SIPS OF HONEY THICK LIQUIDS. UP TO BATHROOM WITH GAIT BELT, WALKER AND STANDBY ASSIST. MANAGING OWN BRIEF WITH SMALL AMOUNT OF LOOSE INCONTINENT STOOL, FOR THIS REASON SHE INSISTS ON WEARING ONE OVERNIGHT.
[2018-08-20 07:45] VITALS: BP 147/98
--- NOTE | 2018-08-20 12:17 | NUR ---
ASSUMED CARE AT APPROX 0715. C/O HEADACHE THIS AM. RATED PAIN 9/10. HAD NO ORDER FOR TYLENOL. CALLED AND RECEIVED ORDER FOR DR. AGUAYO FOR EXTRA TYLENOL. PAIN IS GONE NOW. CHANGED ORDER TO 650MG TYLENOL Q4HR. ALSO NOTED PT IS NOT ON SS. OBTAINED ORDER FOR PT TO BE ON LOW SS. BS 181, AT BREAKFAST, BS 231 AT LUNCH. INSULIN GIVEN. PATIENT A/O X4. VSS. DENIES PAIN NOW. URINE DARK, FOWEL SMELLING. PROVIDER AWARE. PT IS ON HONEY THICK LIQUID. ENCOURAGED PT TO DRINK MORE AND WILL CONTINUE TO MONITOR. NO NEW ORDERS. LEGS WRAPPED PER LYMPHEDEMA PT YESTERDAY. COLACE GIVEN. BOWEL MOVEMENT THIS AM. STILL HAS POOR APPETITE. ENCOURAGED PT TO ORDER FOOD SHE LIKES. PT ALSO C/O SLURRED VISION ON LEFT EYE. ENCOURAGED PT TO ASK OT AND ST AND WORKING ON EYE EXECISE. PATIENT PARTICIPATED IN THERAPY. UP X1 ASSIST GB AND WALKER. HER GOALS TODAY ARE TO EAT MORE, DRINK MORE, WALK MORE SO SHE CAN GO HOME. ENCOURAGE PT TO ELEVATE LEGS TO REDUCE EDEMA.CONTINUE TO OFFER SUPPORT AND ENCOURAGEMENT.FALL PRECAUTION IN PLACE. CALL LIGHT WITHIN REACH. CHECK FREQUENTLY FOR NEEDS AND SAFETY. WILL CONTINUE TO MONITOR.
[2018-08-20 21:14] VITALS: BP 150/96
--- NOTE | 2018-08-21 04:16 | NUR ---
ASSUMED CARE OF PT AT 1915. PT ALERT AND ORIENTED X4. UP IN CHAIR THROUGH THE EVENING. AMBULATES TO BATHROOM WITH ASSIST OF ONE USING GAIT BELT AND WALKER. N.P. COUGH NOTED DURING THE EVENING. NEBULIZER TREATMENT GIVEN BY RESP TX, PT STATES "IT HELPED". HAS APPEARED TO BE SLEEPING WHEN CHECKED ON HOURLY ROUNDS.
--- NOTE | 2018-08-21 19:43 | NUR ---
PATIENT ALERT AND ORIENTED AND UP CHAIR MOST OF THE DAY. SON AT BEDSIDE MOST OF THE DAY. PATIENT HAS GOOD BILATERAL HAND STRENGHT AND CAN RAISE BOTH ARMS ABOVE HER HEAD.
[2018-08-21 20:09] VITALS: BP 136/83
--- NOTE | 2018-08-22 04:06 | NUR ---
TO TOILET WITH GAIT BELT, WALKER, CONTACT GUARD ASSIST. PREFERS TO WEAR BRIEF FOR DRIBBLE INCONTINENCE. MEDS WITH APPLESAUCE AND HONEY THICK WATER BY THE SPOONFUL, STATES HER WISH TO DRINK A BIG GLASS OF ICE WATER, BUT UNDERSTANDS IT WOULD BE DETRIMENTAL. TURNED TO LEFT SIDE ONCE DONE WITH PILLS
[2018-08-22 07:15] VITALS: BP 172/88
--- NOTE | 2018-08-22 13:01 | NUR ---
Nutrition followup: RD met with pt per nsg request. PO had been improving at last eval but recently dropped. Dislikes ground meats, may eat a bite or two. Is eating magic cup supplement TID but other protein/nutrition sources limited. Requires honey thick liquids, no mixed consistencies which presents a challenge. Obtained food preferences, will offer yogurt BID and request honey thick Glucerna, cottage cheese (with thickener) be provided by ST if appropriate. Continue to monitor/encourage po.
--- NOTE | 2018-08-22 19:35 | NUR ---
ASSUMED CARE AT APPROX 0715. HAD INCONT BLADDER THIS AM. NOTICED VAGINAL BLEEDING. NOTIFIED IAN AND OBTAINED ORDER FOR DIFLUCAN FOR 3 DAYS. INFORMED PT AND FAMILY AND ENCOURAGED PT TO REPORT IF HAVE ANY ADVERSE REACTION. FIRST DOSE GIVEN. PATIENT A/O X4. VSS. MORNING MEDS GIVEN. PT CONTINUE TO BE ON HONEY THICK LIQUID AND VITAL STEM WITH ST THIS AM. C/O HEADACHE ON LEFT SIDE. RATED PAIN 8/10, PRN TYLENOL GAVE 2X. DENIES PAIN NOW. URINE DARK, FOWEL SMELLING. PROVIDER AWARE. ENCOURAGED PT TO DRINK MORE AND PROVIDE MORE HONEY THICK LIQUID. LEGS WRAPPED C/D/I. ELEVATED WHILE SITTING. EDEMA 2+ ON BLE.LYMPHEDEMA THERAPIST COULDN'T MAKE IT TODAY, SHE SAID SHE WILL COME IN THE AM. BOWEL MOVEMENT THIS DATE, LOOSE. NOTIFIED NIGHT RN. PATIENT PARTICIPATED IN THERAPY. CONTINUE FALL PRECAUTIONS IN PLACE. UP X1 ASSIST GB AND WALKER TO BATHROOM. OFFERED SUPPORTIVE CARE AND ENCOURAGEMENT. PT IN GOOD SPIRIT TODAY, BUT STILL HAS POOR APPETITE. GAVE REPORT TO NIGHT NURSE TO CONTINUE TO MONITOR.
[2018-08-22 19:40] VITALS: BP 148/79
--- NOTE | 2018-08-23 04:18 | NUR ---
COLACE HELD DUE TO LOOSE STOOL 08/22. MORE ALERT TODAY AND TOLERATING MEDS WITH APPLESAUCE AND SMALL SIPS HONEY THICK LIQUIDS. UP TO BATHROOM WITH GAIT BELT, WALKER AND STANDBY ASSIST
[2018-08-23 08:36] VITALS: BP 186/112
--- NOTE | 2018-08-23 09:28 | NUR ---
ASSUMED CARE AT APPROX 0715. PATIENT A/O X4. B/P 186/112, HR 101, GAVE METOPROLOL 25MG ORDERED. RECHECK B/P 140/74, HR 64. IAN INCREASE METOPROLOL 5OMG NOW. DENIES PAIN AND HEADACHE. PT WOULD LIKE TO HAVE SHOWER TODAY. OT WILL GIVE HER A SHOWER AND LYMPHEDEMA THERAPIST WILL COME TO DO HER LEGS WRAPPED AFTER OT THERAPY. PT REQUESTS TO HOLD COLACE THIS AM. ALL MORNING MEDS GIVEN WITH APPLE SAUCE. ST WORKED ON HER VITAL STEM THIS AM. CONTINUE TO BE ON DIFLUCAN ON HER SECOND DOSE TODAY. NO BLEEDING NOTICE TODAY WILL CONTINUE TO MONITOR. PATIENT PARTICIPATED IN THERAPY. FALL PRECAUTIONS IN PLACE. UP X1 ASSIST GB AND WALKER. RESTING IN RECLINER AT THIS MOMENT. CHECK FREQUENTLY FOR NEEDS AND SAFETY. WILL CONTINUE TO MONITOR.
--- NOTE | 2018-08-23 12:52 | NUR ---
team meeting, recommendation, re team, possible 09/02/18 dc home with hh ( pt, ot ,st- vital stim rt swallowing, currently on honey thick liquids , nursing, bath aid, and sw ), will need fww. will cont following as needed for dc needs
--- NOTE | 2018-08-23 14:20 | NUR ---
WOUND FOLLOW UP: PT. WAS SEEN TODAY BY DR. KAUR AND MYSELF. PT. LEGS ARE C/D/I WITH LYMPEDEMA WRAPS. RECOMMENDATIONS: CONTINUE WITH CURRENT PLAN OF CARE. PT. AND STAFF NURSE WERE INSTRUCTED ON PLAN OF CARE.
[2018-08-23 17:16] VITALS: BP 140/87
[2018-08-23 19:40] VITALS: BP 151/90
--- NOTE | 2018-08-24 02:36 | NUR ---
Assumed care of pt at 1915. Pt alert and oriented x4. Up in chair through the evening. Ambulates to bathroom with standby assist using gait belt and walker. Denies shortness of air, reports productive cough productive of clear sputum. Lungs clear, diminished in bases. Has appeared to be sleeping when checked on hourly rounds. Fall precautions in place.
[2018-08-24 08:00] VITALS: BP 155/88
--- NOTE | 2018-08-24 11:50 | NUR ---
ASSUMED CARE AT APPROX 0715. PATIENT A/O X4. DYSARTHRIA NOTED, PATIENT NEEDING CUES TO USE CLEAR SPEECH, ABLE TO MAKE NEEDS KNOWN. VSS. BP MEDS GIVEN PER ORDERS. PATIENT DENIES PAIN OR VAGINAL DISCHARGE, LAST DOSE OF DIFLUCAN ADMINISTERED TODAY. PT C/O BLEEDING FROM GUMS, HOSPITALIST DIRECTOR OF [employer] RECOMMENDED MOUTHWASH. UP X1 ASSIST GB AND WALKER. PATIENT EDUCATED ON BP MED DOSE CHANGE AND METFORMIN ADDED TO SCHEDULED MEDS. BLE EDEMATOUS, LEGS WRAPPED, LYMPHEDEMA PT TO CHANGE THIS DATE. FALL PRECAUTIONS IN PLACE. WILL CONTINUE TO MONITOR.
--- NOTE | 2018-08-24 12:31 | NUR ---
FAXED SCRIPT FOR FWW TO [facility] SPOKE WITH GET AT [facility] SHE RECEIVED REFERRAL AND WILL CHECK WITH INS. DCP TO FOLLOW.0
--- NOTE | 2018-08-24 13:26 | H ---
[facility] [place] [address] HISTORY AND PHYSICAL Name: GRACIELA NUÑEZ MAURICIO Room #: 515-P ADM IN M.R.#: [id number] Admission: 08/16/18 ������������������ Attend Phys: Laci Rodas MD Discharge: ������������������ Date of : 56 Report #: [id number] THIS REPORT FOR: //name// CC: Laci Morris DATE OF SERVICE: 08/16/2018 HISTORY AND PHYSICAL AND POST-ADMISSION PHYSICIAN EVALUATION HISTORY OF PRESENT ILLNESS: The patient is a 58-year-old white female originally admitted to [facility], 08/11/2018 with slurred speech. She is right handed. CT scan showed moderate atrophy, but MRI revealed acute infarct left posterior frontal as well as inferior reema. She also had an MRI of the lumbar and thoracic spine. There was question of a small perineural cyst at left T8-T9. She was noted to have slurring of her speech along with weakness of both lower extremities and decreased function. Neurology has been involved. She has diabetes mellitus and had a hemoglobin A1c of 12.4. She has had significant functional decline from her premorbid status and has not been admitted for acute in-hospital inpatient rehabilitation. PAST MEDICAL HISTORY: Includes hypertension, hyperlipidemia, diabetes mellitus, paroxysmal atrial fibrillation, lymphedema of both lower extremities, which is chronic kidney stones, thyroid disease. PAST SURGICAL HISTORY: Includes a thyroidectomy. ALLERGIES: CODEINE. MEDICATIONS: Please see the full medication listing. This includes vitamins, herbals, and supplements per report. FAMILY HISTORY: Noncontributory. SOCIAL HISTORY: Lives in a house with two entry stairs. She was independent with ADLs and IADLs, was driving, did not utilize any adaptive device. She had had 2 falls in the past year when she fell out of a chair with no reported injuries. REVIEW OF SYSTEMS: Complains of overall weakness and decreased function. No fever or chills. No cough, shortness of breath, no chest pain, abdominal discomfort, nausea. No dysuria. No headache, seizures, tremors. As far as her lower extremities, she has had chronic bilateral lower extremity lymphedema and has used wraps for a long time. PHYSICAL EXAMINATION: [facility] [address] [place] [address] HISTORY AND PHYSICAL Name: GRACIELA NUÑEZ [facility] Room #: 515-P [facility].#: [id number] Admission: 08/16/18 ������������������ Attend Phys: Laci Rodas MD Discharge: ������������������ Date of : 56 Report #: [id number] GENERAL: A 58-year-old white female, obese, no obvious distress. The patient is alert. She has a delay in her responses. She does follow 1-step commands. VITAL SIGNS: Temperature 98.6, pulse 84, respirations 16, blood pressure 147/80. HEENT: Upon examination on HEENT again, there is a hint of some disconjugate gaze. No obvious nystagmus. She does appear to have some oral motor apraxia. CHEST: Sounded clear to auscultation. CARDIOVASCULAR: Regular rate and rhythm. ABDOMEN: Bowel sounds positive, nontender. GENITOURINARY AND RECTAL: Deferred. EXTREMITIES: She has functional range of motion of both upper extremities. No clonus, no pronator drift. 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 She has considerable chronic lower extremity lymphedema. Slight decreased sensation to proprioception, bilateral large toes. Strength of lower extremities is a grade 3+/5 to 4-/5. DTRs are 1. No clonus. ASSESSMENT: A 58-year-old right-handed white female with the following problem list: 1. 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 2. Dysarthria. 3. Rule out dysphagia. 4. Bilateral lower extremity weakness. 5. Functional mobility and ADL deficits. 6. Diabetes mellitus with elevated hemoglobin A1c. 7. Hyperlipidemia. 8. Hypertension. 9. Chronic lower extremity lymphedema. 10. Premorbid neuropathy. PLAN: The patient is admitted for acute in-hospital inpatient rehabilitation. From a postadmission physician evaluation perspective, there are no relevant changes since the preadmission screening. Please see the above review of prior and current medical and functional conditions and comorbidities. Please see the patient's previous and current functional status. As far as risk of complications, the patient has multiple medical comorbidities as noted above. Initial plan of care involves the interdisciplinary acute inpatient rehabilitation program with goal of maximizing the patient's functional independence, so she can hopefully return back to her prior living situation. Measurable functional goals would be for the patient to become modified independent with transfers, mobility, ADLs, communication, so she can return back to her prior living situation. Also to work on her swallowing as there is a note of moderate oral dysphagia. She is on a mechanical soft, thin liquid diet. Prognosis is reasonably good with estimated length of stay probably at least 2-3 weeks pending progress. Potential barriers would include her decreased functional status and her multiple medical comorbidities. [facility] [address] [place] [address] HISTORY AND PHYSICAL Name: GRACIELA NUÑEZ Room #: 515-P ADM IN M.R.#: [id number] Admission: 08/16/18 ������������������ Attend Phys: Laci Rodas MD Discharge: ������������������ Date of : 56 Report #: [id number] The patient meets diagnostic criteria for an acute in-hospital inpatient rehabilitation stay. She meets medical necessity criteria and we will have the information resource consultant physicians continue to follow. She does have the tolerance for therapies and has appropriate discharge goals back to the home setting. ��������������������������������������������� <ELECTRONICALLY SIGNED> ���������������������������������������� By: Laci Rodas MD ��������������������������������������������� 08/24/18 1326 0921 1008 Laci Rodas MD /[facility]
--- NOTE | 2018-08-24 13:54 | NUR ---
[facility] will be able to provide pt fww 1-2 days prior to dc home.
[2018-08-24 19:50] VITALS: BP 137/72
--- NOTE | 2018-08-25 03:32 | NUR ---
Assumed care of pt at 1915. Pt alert and oriented x4, calm and cooperative. Up to bathroom with assist of one, using gait belt and walker. When in bathroom, had large loose BM after which pt became weak and had to be wheeled back to the bed. Has had one subsequent large loose BM, incontinent. Denies abdominal cramping or pain, nausea. Abdomen is soft, obese with active bowel sounds. Will continue to monitor. Has appeared to be sleeping when checked on hourly rounds. Fall precautions in place.
[2018-08-25 08:53] VITALS: BP 132/94
--- NOTE | 2018-08-25 11:19 | NUR ---
WOUND FOLLOW UP: PT. WAS SEEN TODAY BY DR. PENA AND MYSELF. PT. LYMPEDEMA WRAPS ARE C/D/I AT THIS TIME. PT. HAS NO COMPLAINTS. OT WILL CHANGED WRAPS TOMORROW. RECOMMENDATIONS: CONTINUE WITH CURRENT PLAN OF CARE. PT. AND STAFF NURSE WERE INSTRUCTED ON PLAN OF CARE.
[2018-08-25 15:26] VITALS: BP 128/79
--- NOTE | 2018-08-25 15:26 | NUR ---
Patient participated in community reintegration on 08/25/18 with SPEECH THERAPY. Refer to documentation by SPEECH THERAPIST.
--- NOTE | 2018-08-25 15:49 | NUR ---
Pt PARTICIPATED IN COMMUNITY REINTEGRATION ON 08/25/[address], PLEASE REFER TO ST DOCUMENTATION
[2018-08-25 17:18] VITALS: BP 116/63
[2018-08-25 21:18] VITALS: BP 142/77
--- NOTE | 2018-08-25 22:30 | NUR ---
HEADACHE RELIEVED WITH TYLENOL EARLIER TODAY BUT NOW HAS RETURNED AND SHE WOULD LIKE TO TRY TYLENOL AGAIN. UP TO BATHROOM FOR SIGNIFICANT VOID AND WOULD LIKE TO CONTINUE TO WEAR BRIEF. REFUSING TURNS, LOW AIR-LOSS PUMP THERAPY CONTINUES
[2018-08-25 22:45] LABS: HEMATOCRIT 51.4 % (37.0-47.0); HEMOGLOBIN 16.8 gm/dL (12.0-15.0); MCH 27.8 pg (26.0-34.0); MCHC 32.7 g/dL (28.0-37.0); RBC 6.05 mil/uL (4.20-5.00); RDW 14.8 % (10.5-14.5); WBC 15.2 thou/uL (4.0-11.0)
[2018-08-25 22:52] LABS: CALCIUM 10.4 mg/dL (8.5-10.1); CREATININE 1.1 mg/dL (0.6-1.0); POTASSIUM 3.5 mmol/L (3.5-5.1)
[2018-08-25 22:58] LABS: ALBUMIN 2.6 g/dL (3.4-5.0); TOTAL BILIRUBIN 0.4 mg/dL (<0.1-1.0); TOTAL PROTEIN 8.3 g/dL (6.4-8.2)
[2018-08-25 23:20] LABS: APTT 35.9 Seconds (24.5-32.8); INR 1.1
[2018-08-26 05:35] LABS: ABSOLUTE NEUTROPHILS 8.7 thou/uL (1.4-8.2); BASOPHILS 0.5 % (0.0-2.0); EOSINOPHILS 2.1 % (0.0-3.0); HEMATOCRIT 51.6 % (37.0-47.0); HEMOGLOBIN 16.2 gm/dL (12.0-15.0); LYMPHOCYTES 23.4 % (24.0-44.0); MCH 26.8 pg (26.0-34.0); MCHC 31.4 g/dL (28.0-37.0); MCV 85.3 fL (80.0-100.0); MONOCYTES 6.3 % (1.0-8.0); PLATELET COUNT 175 thou/uL (150-400); POLYS 67.7 % (36.0-66.0); RBC 6.05 mil/uL (4.20-5.00); RDW 14.7 % (10.5-14.5); WBC 12.8 thou/uL (4.0-11.0)
[2018-08-26 05:48] LABS: CALCIUM 10.4 mg/dL (8.5-10.1); CREATININE 0.9 mg/dL (0.6-1.0); MAGNESIUM 1.7 mg/dL (1.8-2.4); POTASSIUM 3.7 mmol/L (3.5-5.1)
[2018-08-26 08:57] VITALS: BP 155/91
--- NOTE | 2018-08-26 19:26 | NUR ---
PATIENT ALERT AND ORIENTED AND UP TO DINING ROOM FOR LUNCH. STARTED PIV FOR IVPB MG. PATIENT PARTICPATED IN REHAB. PATIENT RECEIVED BREATHING TREATMENT. SON AT BEDSIDE THIS EVENING. PATIENT ENJOYS LEMON COLA WITH THICKENER.
[2018-08-26 19:53] VITALS: BP 130/86
--- NOTE | 2018-08-27 04:45 | NUR ---
UP WITH MIN ASSIST TO BATHROOM AND ABLE TO MANAGE CLOTHES AND BRIEF. SHE CONTINUES TO INSIST ON BRIEF TO MANAGE LOOSE STOOL. HAPPY THAT SHE NO LONGER IS HAVING HEADACHES. DECLINES OUR OFFERS TO HELP HER TURN
[2018-08-27 08:34] VITALS: BP 133/79
[2018-08-27 11:46] LABS: HEMATOCRIT 49.5 % (37.0-47.0); HEMOGLOBIN 16.1 gm/dL (12.0-15.0); MCH 27.2 pg (26.0-34.0); MCHC 32.4 g/dL (28.0-37.0); MCV 83.8 fL (80.0-100.0); RBC 5.91 mil/uL (4.20-5.00); RDW 14.6 % (10.5-14.5); WBC 10.1 thou/uL (4.0-11.0)
[2018-08-27 11:51] LABS: CALCIUM 10.2 mg/dL (8.5-10.1); MAGNESIUM 1.8 mg/dL (1.8-2.4)
--- NOTE | 2018-08-27 14:30 | HC ---
[facility] [place] [address] CONSULTATION Name: GRACIELA NUÑEZ Room #: 515-P ADM IN M.R.#: [id number] Admission: 08/16/18 ������������������ Attend Phys: Laci Rodas MD Discharge: ������������������ Date of : 56 Report #: [id number] THIS REPORT FOR: //name// CC: Laci Morris DATE OF SERVICE: 08/20/2018 ATTENDING PHYSICIAN: Laci Rodas MD RELIEF WORKER: Abebe Figueroa PhD CLINICAL PRESENTATION: The patient is a 58-year-old female admitted to the [facility] Rehabilitation Unit for comprehensive inpatient rehabilitation to improve functional mobility, activities of daily living and self-care and mental status secondary to deficits from 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 Her diagnoses on rehab includes dysarthria, rule out dysphagia, bilateral lower extremity weakness, functional mobility and ADL deficits, diabetes mellitus with elevated hemoglobin A1c, hyperlipidemia, hypertension, chronic lower extremity lymphedema and premorbid neuropathy. A complete description of her medical condition and history can be found in her medical record. Neuropsychological consultation was requested to provide assistance in the assessment of cognitive and emotional status and to provide recommendations and services. Prior to this most recent admission, the patient was living with 2 of her children in their home. She has been on disability because of neuropathy. The patient described having been at her home when her son noticed a facial droop and then subsequently brought her to the hospital. The patient lacked insight into the extent to which she required treatment. She did not recognize that she had had a stroke. The patient has 4 adopted children. She reports having never . 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 TECHNIQUES UTILIZED: Clinical interview, review of medical records, staff consultation and behavioral observation, mini mental status exam 2 standard version and brief category fluency test and abstract reasoning assessment. EXAMINATION FINDINGS: The patient was alert and cooperative with the assessment. She accurately described events surrounding her admission. There is no evidence of aphasia or thought disorder. Her thoughts are logical and goal oriented. She reports her symptoms to include decreased appetite and anxiety. She does not report difficulty with memory, word finding or sleep. Her energy level is described as poor. Her affect appears depressed. She does not report a history of treatment for depression or anxiety and denies the use of alcohol. [address] [address] CONSULTATION Name: GRACIELA NUÑEZ MUARICIO Room #: 515-P [facility] IN M.R.#: [id number] Admission: 08/16/18 ������������������ Attend Phys: Laci Rodas MD Discharge: ������������������ Date of : 56 Report #: [id number] Her performance on the MMSE 2 brief version was within normal limits with a raw score of 15 of 16. She was 2 of 3 for immediate recall of 3 items after a brief time delay and distraction. The patient was 3 of 3 for initial registration, 5 of 5 for orientation to time and 5 of [address] Her performance on the MMSE 2 standard version is consistent to functioning within normal limits. She was 3 of 5 for serial 7s, 2 of 2 for naming, 1 of 1 for repetition, 3 of 3 for auditory comprehension, 1 of 1 for being able to read and follow single command and write a sentence. Her overall score on the MMSE 2 standard version was 25. Category fluency was extremely low with a raw score of 11 and a T score of 25, which is at the 1st percentile. Category fluency was within normal limits. Deficits in category fluency can be seen with impaired executive functioning. DIAGNOSTIC IMPRESSION: Neurocognitive disorder - extent to be determined, likely in the mild to moderate range. RECOMMENDATIONS: The patient will likely require assistance in the management of medication, finances and nutrition upon her initial return home. Driving will be a safety concern. A followup neuropsych examination will help clarify the severity of cognitive deficits and can provide more specific recommendations. Continuing speech therapy will be of benefit to assist in the development of compensatory strategies for variability in executive functioning. Thank you very much for allowing me to provide the consultation on this patient. ��������������������������������������������� <ELECTRONICALLY SIGNED> ���������������������������������������� By: Abebe Figueroa, PhD ��������������������������������������������� 08/27/18 1430 1600 0059 Abebe Figueroa, PhD /nt
--- NOTE | 2018-08-27 14:48 | NUR ---
ASSUMED CARE AT APPROX 0715. PATIENT A/O X4. DENIES HEADACHE, PAIN, NAUSEA. VSS. BP MEDS HELD PER PARAMETERS. BLOOD GLUCOSE MONITORED AND TREATED PER ORDERS. NEW ORDERS RECEIVED FOR DIABETIC MEDICATIONS, HOSPITALIST PAGED TO CLARIFY ORDERS PENDING D/C HOME WEDNESDAY- PATIENT REPORTS SHE WAS NOT ON INSULIN AT HOME. IV TO RIGHT FOREARM C/D/I. URINE THIS AM WAS BROWN IN COLOR, ORDERS FOR LABS AND UA RECEIVED. URINE SAMPLE TO BE COLLECTED, PATIENT EDUCATED ON PROCEDURE/NEED FOR SAMPLE. HONEY THICKENED LIQUIDS PROVIDED BETWEEN MEALS. PATIENT REPORTED WORRY ABOUT HER WALKER ARRIVING BEFORE D/C WEDNESDAY. PATIENT INFORMED OF CM NOTE THAT WALKER IS TO ARRIVE 1-2 DAYS PRIOR TO DC. FALL PRECAUTIONS IN PLACE. PATIENT ROUNDED ON HOURLY. WILL CONTINUE TO MONITOR.
--- NOTE | 2018-08-27 15:32 | NUR ---
PATIENT REPORTS SHE WAS NOT COMPLIANT AT HOME WITH CARB CONTROL DIET. STATED SHE WOULD TAKE HER MEDICATION -METFORMIN- PRESCRIBED, BUT WAS NOT CONTROLLING CARBOHYDRATE INTAKE. SHE STATED "I'LL EAT THE WAY I'M SUPPOSED TO FROM NOW ON. THIS WAS ENOUGH. I ALREADY HAD MY SISTER CLEAN OUT MY KITCHEN." HOSPITALIST PHYSICIAN PAGED. PATIENT DISCHARGING WEDNESDAY AND STATED SHE WOULD PREFER TO CONTINUE WITH ORAL DIABETIC MANAGEMENT OVER INSULIN. HONEY THICK FLUIDS PROVIDED. PATIENT ENCOURAGED TO INCREASE FLUID INTAKE. UA SPECIMEN COLLECTION PENDING. WILL CONTINUE TO MONITOR.
[2018-08-27 19:11] LABS: URINE BILIRUBIN NEGATIVE (Negative); URINE BLOOD 3+ (Negative); URINE GLUCOSE-RANDOM* NEGATIVE (Negative); URINE KETONES NEGATIVE (Negative); URINE NITRITE-REFLEX NEGATIVE (Negative); URINE PROTEIN (DIPSTICK) 2+ (Negative); URINE SPECIFIC GRAVITY >= 1.030 (1.005-1.035); URINE UROBILINOGEN 0.2 E.U./dl (0.2-1.0)
[2018-08-27 19:13] LABS: URINE LEUKOCYTES-REFLEX 1+ (Negative)
[2018-08-27 19:14] LABS: URINE CLARITY CLOUDY; URINE COLOR BROWN
[2018-08-27 19:16] LABS: SQUAMOUS 4-10 Moderate /LPF (0-3); URINE RBC >20 Many /HPF (0-2); URINE WBC-REFLEX >25 Many /HPF (0-5)
[2018-08-27 19:17] LABS: BACTERIA-REFLEX >30 Many /HPF (None Seen)
[2018-08-27 19:19] LABS: CASTS None Seen /LPF (None Seen); CRYSTALS None Seen /LPF (None Seen)
[2018-08-27 19:44] VITALS: BP 137/85
--- NOTE | 2018-08-28 04:24 | NUR ---
ASSUMED CARE OF PT AT 1915. PT ALERT AND ORIENTED X4. UP IN CHAIR THROUGH THE EVENING. DENIES HEADACHE, NAUSEA OR DYPSNEA. AMBULATES TO BATHROOM WITH ASSIST OF ONE USING GAIT BELT AND WALKER. HAS APPEARED TO BE SLEEPING WHEN CHECKED ON HOURLY ROUNDS. FALL PRECAUTIONS IN PLACE.
[2018-08-28 08:32] VITALS: BP 157/96
--- NOTE | 2018-08-28 19:26 | NUR ---
PATIENT ALERT AND ORIENTED. PATIENT ENCOURAGED TO WALK, BUT REFUSED TO WALK. PATIENT SAT IN THE CHAIR THE ENTIRE DAY. PATIENT'S CHILDREN STOPPED TO VISIT AND PATIENT SIBLINGS VISITED PATIENT THIS AFTERNOON.
[2018-08-28 20:00] VITALS: BP 136/86
--- NOTE | 2018-08-29 02:08 | NUR ---
PT ALERT AND ORIENTED X 4. AMB TO BR WITH WALKER AND ASSIST X 1. RFA SL INTACT. LE WRAPS C/D/I. BLOOD SUGAR 156 AT HS. PT STARTED ON LANTUS INSULIN. PT DENIES PAIN OR DISCOMFORT. BED ALARM ON FOR SAFETY. PT APPEARS TO BE SLEEPING ON HOURLY ROUNDS.
[2018-08-29 08:15] VITALS: BP 149/75
--- NOTE | 2018-08-29 13:40 | NUR ---
ASSUMED CARE AT APPROX 0715. PATIENT A/O X4. DENIES HEADACHE, PAIN, NAUSEA. VSS. BP MEDS GIVEN PER PARAMETERS. BLOOD GLUCOSE MONITORED AND TREATED PER ORDERS. IV TO RIGHT FOREARM C/D/I. URINE SENT FOR LABS 2 DAYS AGO IS POSISTIVE, NO CULTURE RESULT AT THIS TIME. NOTIFIED DR. NEAL AND RECEIVED ORDER FOR LEVAQUIN FOR 3 DAYS. GAVE FIRST DOSE AND ENCOURAGED PT TO REPORT ANY ADVERSE REACTION NOTE. HONEY THICKENED LIQUIDS PROVIDED BETWEEN MEALS. ENCOURAGED PT TO DRINK MORE. STILL HAS POOR APPETITE, ENCOURAGED PT TO EAT MORE SO SHE CAN GET STRONGER. PT WILL DC ON WEDNESDAY, HER GOALS ARE TO CONTINUE TO PROGRESS WITH THERAPY BEFORE DISCHARGE. OFFERED SUPPORT AND ENCOURAGEMENT. OT GAVE PT SHOWER THIS AM. LYMPHADEMA THERAPIST CAME AND WRAPPED HER LEGS. EDEMA IS BETTER. 2+. ENCOURAGED PT TO ELEVATE LEGS MUCH SHE CAN. FALL PRECAUTIONS IN PLACE. PATIENT ROUNDED ON HOURLY. PT USES CALL LIGHT APPROPRIATELY. CHAIR ALARM IS ON. RESTING IN RECLINER AT THIS MOMENT. WILL CONTINUE TO MONITOR.
[2018-08-29 19:30] VITALS: BP 146/98
[2018-08-30] VITALS: BP 159/95
[2018-08-30 00:27] VITALS: BP 159/95
[2018-08-30 01:00] VITALS: BP 124/54; BP 98/54
--- NOTE | 2018-08-30 02:08 | NUR ---
PT ALERT AND ORIENTED X 4. AT 2345, PT AMBULATING WITH WALKER AND CAUSTIC PUMP OPERATOR FROM BATHROOM TO BED. PT BECAME WEAK AND UNSTEADY AND FELL TO THE FLOOR ON HER BOTTOM. CAUSTIC PUMP OPERATOR HAD ATTEMPTED TO GET PT INTO W/C PRIOR TO FALL. GAIT BELT, NON-SKID SOCKS IN PLACE. PT ASSISTED TO BED WITH HOVER LIFT AND 6 STAFF MEMBERS. NOTIFIED LUOISA WATT NP WITH NO ORDERS RECEIVED. WAITRESS ON UNIT ASSISTING TO GET PT BACK TO BED. SISTER JEREMY NOTIFIED OF FALL. ATTEMPTED TO NOTIFY DR ALCARAZ VIA CELL PHONE WITH NO RESPONSE. NO INJURY NOTED. PT DENIES PAIN OR DISCOMFORT. BED ALARM ON FOR SAFETY. PT CHECKED ON HOURLY ROUNDS.
--- NOTE | 2018-08-30 04:03 | NUR ---
PT WITH DRY MOUTH AND BLACK AROUND LIPS. NO ACTIVE BLEEDING NOTED. NO COUGH. VSS. WILL CONTINUE TO MONITOR.
[2018-08-30 08:28] VITALS: BP 144/93
--- NOTE | 2018-08-30 11:02 | PLAN ---
[facility] [place] [address] REHAB UNIT PLAN OF CARE Name: GRACIELA NUÑEZ Room #: 515-P ADM IN M.R.#: [id number] Admission: 08/16/18 ������������������ Attend Phys: Laci Rodas MD Discharge: ������������������ Date of : 56 Report #: [id number] THIS REPORT FOR: //name// CC: Laci Morris DATE OF SERVICE: 08/19/2018 PROGRESS NOTE AND OVERALL PLAN OF CARE SUBJECTIVE: The patient is seen back today in followup. She is in no distress. Last recorded temperature is 99.5, pulse is 53, respirations 17, and blood pressure is 135/88. She has the chronic lower extremity lymphedema. She has dysarthria. Speech therapy is asked for orders for VitalStim, which have been put in. She is working in therapies with transfers, min assist. Gait min assist 100 feet front-wheeled walker. In occupational therapy, lower body dressing is max assist. In speech, she has mild comprehensive deficits. She is on a mechanical soft with honey thickened liquid diet. ASSESSMENT: 1. Acute left frontal and bilateral pontine cerebrovascular accident. 2. Dysarthria. 3. Uncontrolled hypertension. 4. Uncontrolled diabetes mellitus type 2. 5. Atrial fibrillation. 6. Premorbid peripheral neuropathy. 7. Obesity. 8. Lymphedema, bilateral lower extremities. 9. Dysphagia. PLAN: The overall plan of care is based on the preadmission screen, post-admission physician evaluation and information garnered from therapy assessments. 1. Estimated length of stay is probably at least 10 days to 2 weeks pending progress. 2. Medical prognosis is reasonably good. 3. Anticipated interventions includes interdisciplinary acute inpatient rehabilitation program with PT, OT, speech rehab nursing assisting regarding medication management, skin care prophylaxis, bowel and bladder issues, and nursing education. 4. Anticipated functional outcomes would be for the patient to become modified independent with transfers, mobility, and ADLs and hopefully become modified independent at least at the walker level, so that she can be return back to the home setting. Also to improve as far as cognition and swallowing and ADL independence. 5. Discharge destination would be back to the house where she lives. [facility] [address] [place] [address] REHAB UNIT PLAN OF CARE Name: GRACIELA NUÑEZ MAURICIO Room #: 515-P [facility] IN [facility].#: [id number] Admission: 08/16/18 ������������������ Attend Phys: Laci Rodas MD Discharge: ������������������ Date of : 56 Report #: [id number]. Expected therapy by discipline includes PT, OT, and speech 1 hour per day each five days a week throughout the duration of the acute inpatient rehabilitation stay. ��������������������������������������������� <ELECTRONICALLY SIGNED> ���������������������������������������� By: Laci Rodas MD ��������������������������������������������� 08/30/18 1102 0858 2240 Laci Rodas MD /PMT
--- NOTE | 2018-08-30 13:20 | NUR ---
team meeting, recommendation : 09/02/18, home with [facility] (nursing pt, ot, st- vital stim rt swallowing, bath aid, sw). family training rt swallowing, nursing for possible needing insulin, and blood thinner. follow up outpt dental or oral surgeon.
--- NOTE | 2018-08-30 15:55 | NUR ---
ASSUMED CARE AT APPROX 0715. DENIES PAIN FROM INCIDENT LAST NIGHT. PT HAD ONE INCONT BLADDER D/T AFRAID OF GETTING UP. ENCOURAGED PT TO BE CAREFUL BUT NOT BE AFRAID. PT HAS BEEN UP TO THE BATHROOM WITH A WALKER. PATIENT A/O X4. DENIES HEADACHE, PAIN, NAUSEA. VSS. BP MEDS GIVEN PER PARAMETERS. BLOOD GLUCOSE MONITORED, NO INSULIN. MORNING MEDS GIVEN WITH APPLE SAUCE. CONTINUE TO BE ON HONEY THICK AND VITAL STEM BY ST. PT HAS BLEEDING FROM MOUTH, SHE SAID SHE HAD TOOTH PULLED BEFORE CAME TO HOSPITAL, PT ALSO ON BLOOD THINNER. IAN AWARE. MOUTH CARE DONE. PT HAS CHEST XRAY FOR PERSITENT COUGHING. CHEST XRAY IS NORMAL AT THIS TIME. MOUTH CARE DONE 2X. ENCOURAGED PT TO BITE ON GUAZE NEED. IV TO RIGHT FOREARM C/D/I. CONTINUE TO BE ON LEVAQUIN, NO ADVERSE REACTION NOTE. HONEY THICKENED LIQUIDS PROVIDED BETWEEN MEALS. ENCOURAGED PT TO DRINK MORE. STILL HAS POOR APPETITE, ENCOURAGED PT TO EAT MORE SO SHE CAN GET STRONGER. DIETITIAN CONTINUE TO FOLLLOW UP. PT WT 262 LBS TODAY. PT WILL DC ON WEDNESDAY, HER GOALS ARE TO CONTINUE TO PROGRESS WITH THERAPY BEFORE DISCHARGE. OFFERED SUPPORT AND ENCOURAGEMENT. BLE WRAPPED C/D/I. EDEMA IS BETTER. 2+. ENCOURAGED PT TO ELEVATE LEGS MUCH SHE CAN. FALL PRECAUTIONS IN PLACE. PATIENT ROUNDED ON HOURLY. PT USES CALL LIGHT APPROPRIATELY. CHAIR ALARM IS ON. RESTING IN RECLINER AT THIS MOMENT. WILL CONTINUE TO MONITOR.
[2018-08-30 19:25] VITALS: BP 132/80
--- NOTE | 2018-08-31 04:01 | NUR ---
Assumed care of pt at 1915. Pt alert and oriented x4. Denies pain, nausea or dypsnea. PO meds taken without difficulty whole in applesauce. Has appeared to be sleeping when checked on hourly rounds. Fall precautions in place.
[2018-08-31 09:31] VITALS: BP 132/89
--- NOTE | 2018-08-31 15:29 | NUR ---
Patient participated in community reintegration on 08/31/18 with PHYSICAL THERAPY. Refer to documentation by PHYSICAL THERAPIST.
--- NOTE | 2018-08-31 15:31 | NUR ---
I have reviewed the documentation by MADELEINE RAMOS from 08/31/18 to 08/31/18 and I concur with it. EUGENE ROGERS A
--- NOTE | 2018-08-31 18:03 | NUR ---
ASSUME PT CARE AT 0700. DENIES HEADACHE, PAIN, NAUSEA. VSS. BP MEDS GIVEN PER PARAMETERS. BLOOD GLUCOSE MONITORED AND INSULIN GIVEN ORDERED. MORNING MEDS GIVEN WITH APPLE SAUCE. PT HAD VIDEO SWALLOWING AND STILL SHOWS SIGN OF ASPIRATION. CONTINUE TO BE ON HONEY THICK AND VITAL STEM BY ST UNTIL DISCHARGE. MOUTH CARE DONE 2X. DISCUSSED IAN AND OBTAINED ORDER FOR NASAL SPRAY. PT C/O NAUSEA AFTER HAD CONTRAST. GAVE PRN ZOFRAN. FEELS BETTER NOW. IV TO RIGHT FOREARM PATENT AND INTACT, REINFORCED WITH NEW DRESSING. CONTINUE TO BE ON LEVAQUIN, LAST DOSE TODAY. NO ADVERSE REACTION NOTE. HONEY THICKENED LIQUIDS PROVIDED BETWEEN MEALS. ENCOURAGED PT TO DRINK MORE. STILL HAS POOR APPETITE PT LOOKING FORWARD TO DC ON WEDNESDAY, HER GOALS ARE TO CONTINUE TO PROGRESS WITH THERAPY BEFORE DISCHARGE. OFFERED SUPPORT AND ENCOURAGEMENT. BLE WRAPPED C/D/I. EDEMA IS BETTER. 2+. ENCOURAGED PT TO ELEVATE LEGS MUCH SHE CAN. FALL PRECAUTIONS IN PLACE. PATIENT ROUNDED ON HOURLY. PT USES CALL LIGHT APPROPRIATELY. CHAIR ALARM IS ON. RESTING IN RECLINER AT THIS MOMENT. HAS FAMILY VISIT. DENIES NEEDS OR CONCERN. WILL GIVE REPORT TO NIGHT NURSE TO CONTINUE TO MONITOR.
[2018-08-31 19:44] VITALS: BP 121/74
--- NOTE | 2018-09-01 01:17 | NUR ---
PT ASSESSMENT COMPLETED AND VSS. MEDS GIVEN ORDERED AND WELL TOLERATED. FALL PRECAUTIONS IN PLACE. SNACK PROVIDED WITH INSULIN AT HS. UP TO THE BATHROOM WITH ASST/GAIT/WALKER. STEADY. SLEEPING WELL. WILL CONTINUE TO MONITOR FREQUENTLY.
[2018-09-01 05:07] LABS: ABSOLUTE NEUTROPHILS 11.2 thou/uL (1.4-8.2); BASOPHILS 0.3 % (0.0-2.0); HEMATOCRIT 47.5 % (37.0-47.0); HEMOGLOBIN 15.4 gm/dL (12.0-15.0); LYMPHOCYTES 18.1 % (24.0-44.0); MCH 27.1 pg (26.0-34.0); MCHC 32.4 g/dL (28.0-37.0); MCV 83.7 fL (80.0-100.0); MONOCYTES 4.5 % (1.0-8.0); PLATELET COUNT 153 thou/uL (150-400); POLYS 76.1 % (36.0-66.0); RBC 5.67 mil/uL (4.20-5.00); RDW 14.3 % (10.5-14.5); WBC 14.8 thou/uL (4.0-11.0)
[2018-09-01 05:08] LABS: CALCIUM 9.8 mg/dL (8.5-10.1); MAGNESIUM 1.4 mg/dL (1.8-2.4); POTASSIUM 4.5 mmol/L (3.5-5.1)
[2018-09-01 07:30] VITALS: BP 136/79
--- NOTE | 2018-09-01 10:14 | NUR ---
WOUND FOLLOW UP: PT. WAS SEEN TODAY BY DR. KAUR AND MYSELF. PT. HAD JUST HAD HER LYMPEDEMA WRAPS CHANGED THIS MORINING BY OT. PT. IS PLEASED WITH HER PROGRESS AND REPORTS NO COMPLAINTS IN ASSOCIATION WITH WRAPS. RECOMMENDATIONS: CONTINUE WITH CURRENT PLAN OF CARE. PT. AND STAFF NURSE WERE INSTRUCTED ON PLAN OF CARE.
--- NOTE | 2018-09-01 15:33 | NUR ---
NOTIFIED [facility] OF REFERRAL PT WILL NEED ST WITH VITAL STIM. AND PT/OT/ST/NURSING/SW/BATH AIDE THEY WILL REVIEW.PT DISCHARGING TOMORROW. DCP TO FOLLOW.
--- NOTE | 2018-09-01 16:20 | NUR ---
ASSUMED CARE AT APPROX 0715. PATIENT A/O X4. SPEECH SLURRED, NEEDING CUES FOR CLARITY OF SPEECH. LEFT SIDED WEAKNESS NOTED. DENIES PAIN. UP X1 ASSIST, CGA, PATIENT EXPERIENCED LOSS OF BALANCE THIS AM, PROVIDER NOTIFIED. VSS. MEDS GIVEN PER ORDERS. LYMPHEDEMA WRAPS COMPLETED BY LYMPHEDEMA PT. CM NOTIFIED OF PT'S RECOMMENDATION AT LYMPHEDEMA THERAPY BE PROVIDED BY HH. CM NOTIFIED WALKER HAD NOT YET ARRIVED, AWAITING [facility] TO BRING PRIOR TO DC. DC PLAN IS TO HAVE PRESCRIPTIONS RUN IN [facility] TOMORROW AM TO VERIFY IF PATIENT'S INSURANCE WILL COVER INSULIN PEN. PATIENT AND PROVIDER AWARE. FALL PRECAUTIONS IN PLACE. PATIENT ROUNDED ON HOURLY. WILL CONTINUE TO MONITOR.
[2018-09-01 20:21] VITALS: BP 108/73
--- NOTE | 2018-09-02 04:55 | NUR ---
ASSUMED CARE OF PT AT 1915. PT ALERT AND ORIENTED X4. UP IN CHAIR THROUGH THE EVENING. AMBULATES TO BATHROOM WITH SBA USING GAIT BELT AND WALKER. DENIES PAIN, NAUSEA OR DYPSNEA. ANTICIPATING DISCHARGE HOME LATER TODAY. HAS APPEARED TO BE SLEEPING WHEN CHECKED ON HOURLY ROUNDS. FALL PRECAUTIONS IN PLACE.
[2018-09-02 08:00] VITALS: BP 163/89
[2018-09-02] MEDS ORDERED: LANTUS100 UNIT/M SUBQ ×2 (08:10→11:15)
[2018-09-02] MEDS ORDERED: NOVOLOG100 UNIT/1 SUBQ ×2 (08:10→11:15)
[2018-09-02] MEDS ORDERED: PROBIOTIC1 EAC1 PO (08:53)
[2018-09-02] MEDS ORDERED: NYSTATIN-TRIAMC15 GM TOP (08:53)
[2018-09-02] MEDS ORDERED: NEURONTIN 300300 M1 PO (08:53)
[2018-09-02] MEDS ORDERED: FLONASE 0.05%50 MCG NASAL (08:53)
[2018-09-02] MEDS ORDERED: METFORMIN HCL500 MG PO (08:53)
[2018-09-02] MEDS ORDERED: ELIQUIS5 MG PO (08:53)
[2018-09-02] MEDS ORDERED: PROTONIX40 M1 PO (08:53)
[2018-09-02] MEDS ORDERED: METOPROLOL SUCC25 M1 PO (08:53)
[2018-09-02] MEDS ORDERED: HYDRALAZINE 10M10 MG PO (08:53)
[2018-09-02] MEDS ORDERED: ATORVASTATIN CA40 MG PO (08:53)
--- NOTE | 2018-09-02 09:25 | NUR ---
[facility] is able to accept pt and unable to start till 09/06/18. cm spoke with auto finance sales rep ok to start tue and per pt and family son is able to help in home if needed. lymp wraps shaquille for [facility]. [facility] ( pt, ot, st- vital stim, lymph leg wraps, nursing). cm checking on jenkins of lantus, " if expensive will not be able to afford"/joe. will cont following as needed for dc need.
[2018-09-02] MEDS ORDERED: AMITRIPTYLINE H25 M2 PO (09:52)
[2018-09-02] MEDS ORDERED: SYNTHROID125 MC1 PO (09:52)
[2018-09-02] MEDS ORDERED: TYLENOL EXTRA500 MG PO (09:52)
[2018-09-02 10:02] VITALS: BP 163/89
[2018-09-02] MEDS ORDERED: [UNRECOGNIZED DRUG - OTHER] (11:29)
--- NOTE | 2018-09-02 13:45 | NUR ---
DCP FAXED DC ORDERS/SUMMARY TO [facility] SPOKE WITH MARLENA IN ADM. SHE RECEIVED DC ORDERS AND THEY WILL START VISITS WEDNESDAY 09/06 AND WILL NOTIFY PT. OF TIME OF VISITS.
[2018-09-02 15:43] VITALS: BP 163/89
--- NOTE | 2018-09-02 16:06 | NUR ---
ASSUMED CARE OF PT AT 0715. PT IS A&OX4 WITH NOTED SLURRED SPEECH. PT IS STABLE. DENIES PAIN. IS UP WITH 1 ASSIST, GB, WALKER. FALL PRECAUTIONS & HOURLY ROUNDING MAINTAINED. LABS & VITALS REVIEWED. PT AWAITING DISCHARGE. WILL CONTINUE TO MONITOR.
== END 2018-09-02 16:30 | disposition home health service (06) | DRG 65 ==
LOC: ENTRNSPT 09-02 16:17 → EDTRNSPT 09-02 16:17
PROVIDERS: Internal Medicine; Nurse Practitioner; Nurse Practitioner Family; Psychiatry & Neurology Neuromuscular Medicine; ADMIT Physical Medicine & Rehabilitation
DX: I63.9 Cerebral infarction, unspecified (principal); N39.0 Urinary tract infection, site not specified; Z68.41 Body mass index [BMI] 40.0-44.9, adult; I10 Essential (primary) hypertension; E78.5 Hyperlipidemia, unspecified; I48.0 Paroxysmal atrial fibrillation; E89.0 Postprocedural hypothyroidism; R47.1 Dysarthria and anarthria; E11.65 Type 2 diabetes mellitus with hyperglycemia; E11.42 Type 2 diabetes mellitus with diabetic polyneuropathy; I87.2 Venous insufficiency (chronic) (peripheral); E66.9 Obesity, unspecified; I89.0 Lymphedema, not elsewhere classified; R13.10 Dysphagia, unspecified; D32.9 Benign neoplasm of meninges, unspecified; R51 Headache; Z88.6 Allergy status to analgesic agent; Z87.442 Personal history of urinary calculi; Z79.899 Other long term (current) drug therapy; Z79.4 Long term (current) use of insulin
CPT/HCPCS: 10112

== ENCOUNTER 2018-09-10 14:37 | Emergency (ER) | payer OTHER ==
[~2018-09-10] VITALS: Ht 170.2 cm; Wt 113.4 kg
[~2018-09-10 14:37] MED LIST changes: +ATORVASTATIN CA40 MG PO; +FLONASE 0.05%50 MCG NASAL; +HYDRALAZINE 10M10 MG PO; +LANTUS100 UNIT/M SUBQ; +METFORMIN HCL500 MG PO; +METOPROLOL SUCC25 M1 PO; +NEURONTIN 300300 M1 PO; +NOVOLOG100 UNIT/1 SUBQ; +NYSTATIN-TRIAMC15 GM TOP; +PROBIOTIC1 EAC1 PO; +PROTONIX40 M1 PO; +SYNTHROID125 MC1 PO; +TYLENOL EXTRA500 MG PO; +[UNRECOGNIZED DRUG - OTHER]
[2018-09-10 14:58] LABS: ABSOLUTE NEUTROPHILS 5.7 thou/uL (1.4-8.2); BASOPHILS 0.6 % (0.0-2.0); EOSINOPHILS 1.2 % (0.0-3.0); HEMOGLOBIN 18.1 gm/dL (12.0-15.0); LYMPHOCYTES 29.9 % (24.0-44.0); MCH 27.6 pg (26.0-34.0); MCV 83.8 fL (80.0-100.0); MONOCYTES 6.6 % (1.0-8.0); POLYS 61.7 % (36.0-66.0); RBC 6.56 mil/uL (4.20-5.00); RDW 14.8 % (10.5-14.5); WBC 9.2 thou/uL (4.0-11.0)
[2018-09-10 15:08] LABS: ANION GAP 9 mmol/L (7-16); BUN 19 mg/dL (7-18); CALCIUM 10.2 mg/dL (8.5-10.1); CHLORIDE 104 mmol/L (98-107); CO2 27 mmol/L (21-32); CREATININE 1.1 mg/dL (0.6-1.0); GLUCOSE 115 mg/dL (74-106); POTASSIUM 3.8 mmol/L (3.5-5.1); SODIUM 140 mmol/L (136-145)
[2018-09-10 15:18] LABS: ALBUMIN 3.4 g/dL (3.4-5.0); LARGE PLATELETS FEW; PLATELET COUNT 140 thou/uL (150-400); SGOT 46 U/L (15-37); SGPT 44 U/L (30-65); TOTAL BILIRUBIN 0.6 mg/dL (<0.1-1.0); TOTAL PROTEIN 8.9 g/dL (6.4-8.2); TROPONIN-I <0.06 ng/mL (<0.06)
[2018-09-10 16:39] VITALS: BP 169/86
--- NOTE | 2018-09-12 08:10 | EKG ---
[address] [address] [place] [address] ELECTROCARDIOGRAM REPORT Name: GRACIELA NUÑEZ MAURICIO [id number] ������������������ Admission: 09/10/18 ������������������ Attend Phys: Discharge: 09/10/18 ������������������ Date of : 56 Report #: [id number] ����������������������������������������������������������������� [id number] THIS REPORT FOR: //name// [facility] ED Test Date: 2018-09-10 Test Time: 14:44:59 Pat Name: GRACIELA NUÑEZ Department: Room: Gender: F Clinic Licensed Practical Nurse: : 1960 Requested By: Rosey Crisostomo Order Number: [id number] MD: Hamilton Valenzuela Measurements Intervals [place] Rate: 93 P: [place]: QRS: -22 QRSD: 104 T: 173 QT: 355 QTc: 442 Interpretive Statements Atrial fibrillation Poor R wave progression Nonspecific intraventricular conduction delay Nonspecific ST and T wave abnormality Compared to ECG 08/16/2018 03:07:00 No significant change was found Electronically Signed On 09-12-2018 8:10:16 CDT by Hamilton Valenzuela [email or web address] ��������������������������������������������� <ELECTRONICALLY SIGNED> ���������������������������������������� By: Hamilton Valenzuela MD, [facility] ��������������������������������������������� 09/12/18 0810 1444 1444 Hamiltno Valenzuela MD, [facility] /EPI
== END 2018-09-10 16:40 | disposition home or self-care (01) ==
LOC: ER 14:37
PROVIDERS: Emergency Medicine
DX: I10 Essential (primary) hypertension (principal); E11.9 Type 2 diabetes mellitus without complications; I48.91 Unspecified atrial fibrillation; E78.5 Hyperlipidemia, unspecified; E89.0 Postprocedural hypothyroidism; Z88.5 Allergy status to narcotic agent

== ENCOUNTER 2018-09-26 12:01 | Inpatient (IN) | payer OTHER ==
[~2018-09-26] VITALS: Ht 170.2 cm; Wt 110.7 kg
[2018-09-26 12:03] VITALS: BP 123/87
[2018-09-26 12:48] LABS: HEMATOCRIT 38.3 % (37.0-47.0); HEMOGLOBIN 12.3 gm/dL (12.0-15.0); MCH 27.1 pg (26.0-34.0); MCHC 32.1 g/dL (28.0-37.0); MCV 84.3 fL (80.0-100.0); PLATELET COUNT 146 thou/uL (150-400); RBC 4.54 mil/uL (4.20-5.00); RDW 15.7 % (10.5-14.5)
[2018-09-26 12:58] LABS: ANION GAP 14 mmol/L (7-16); BUN 47 mg/dL (7-18); CALCIUM 10.4 mg/dL (8.5-10.1); CHLORIDE 104 mmol/L (98-107); CO2 24 mmol/L (21-32); CREATININE 3.9 mg/dL (0.6-1.0); GLUCOSE 169 mg/dL (74-106); POTASSIUM 4.4 mmol/L (3.5-5.1); SODIUM 142 mmol/L (136-145)
[2018-09-26 13:06] LABS: ALBUMIN 3.5 g/dL (3.4-5.0); LIPASE 289 U/L (73-393); SGOT 28 U/L (15-37); SGPT 34 U/L (30-65); TOTAL BILIRUBIN 0.4 mg/dL (<0.1-1.0); TOTAL PROTEIN 7.7 g/dL (6.4-8.2); TROPONIN-I <0.06 ng/mL (<0.06)
[2018-09-26 13:18] LABS: PLATELET ESTIMATE NORMAL
[2018-09-26] MEDS ORDERED: AMITRIPTYLINE H25 M2 PO (14:19)
[2018-09-26] MEDS ORDERED: PROTONIX40 M1 PO (14:20)
[2018-09-26] MEDS ORDERED: HYDROCHLOROTH12.5 M1 PO (14:20)
--- NOTE | 2018-09-26 15:26 | NUR ---
PT REFUSES STRAIGHT CATHETER AT THIS TIME.
[2018-09-26 15:44] VITALS: BP 123/77
--- NOTE | 2018-09-26 15:47 | NUR ---
FIRST ATTEMPT AT REPORT TO FLOOR AT THIS TIME. TOLD "NEED TO TALK TO CHARGE NURSE" AND THAT FLOOR WILL CALL BACK.
[2018-09-26 17:09] VITALS: BP 118/80
[2018-09-26 17:34] VITALS: BP 135/79
[2018-09-26 19:40] VITALS: BP 114/81
--- NOTE | 2018-09-26 20:40 | NUR ---
Received the pt from the ER, a & o x 4 currently on NPO. IV line patent, currently had an headache, rectal acetamenophen given. Kept pt comfortable, son is at the bed side. endorsed to the night nurse.
--- NOTE | 2018-09-26 23:47 | EKG ---
[address] [place] [address] ELECTROCARDIOGRAM REPORT Name: SAVANNAHGRACIELA Room #: 462-P ADM IN M.R.#: [id number] ������������������ Admission: 09/26/18 ������������������ Attend Phys: Po Ram MD Discharge: ������������������ Date of : 56 Report #: [id number] ����������������������������������������������������������������� [id number] THIS REPORT FOR: //name// [facility] ED Test Date: 2018-09-26 Test Time: 12:37:28 Pat Name: GRACIELA NUÑEZ Department: Room: 462 Gender: F Account Executive Sales Representative: KKMARK : 1960 Requested By: Bernadine Pastrana Order Number: [id number] MD: Shilo Omer Measurements Intervals [place] Rate: 98 P: [place]: QRS: -23 QRSD: 105 T: 164 QT: 325 QTc: 415 Interpretive Statements Atrial fibrillation LVH with secondary repolarization abnormality Anterior Q waves, possibly due to LVH Baseline wander in lead(s) II,aVF Compared to ECG 09/10/2018 14:44:59 no significant changes Electronically Signed On 09-26-2018 23:47:10 CDT by Shilo Omer [email or web address] ��������������������������������������������� <ELECTRONICALLY SIGNED> ���������������������������������������� By: Shilo Omer MD ��������������������������������������������� 09/26/18 2347 1237 1237 Shilo Omer MD /EPI
[2018-09-27 05:16] VITALS: BP 133/81
--- NOTE | 2018-09-27 06:53 | NUR ---
SLEPT MOST OF SHIFT. VOIDED PER BEDPAN X1. PATIENT ON MENSES. TURNS SELF WITH MINIMAL ASSISTANCE. WORKING ON GOALS AND PLAN OF CARE FOR NOC. NPO FOR POSSIBLE TESTS THIS AM. NOT PROGRESSING TOWARD DISCHARGE GOALS. CONTINUE TO ASSES LEIF. VSS.
[2018-09-27 07:27] VITALS: BP 129/59
[2018-09-27 14:52] VITALS: BP 115/66
--- NOTE | 2018-09-27 15:59 | NUR ---
PT ADMITTED RELATED TO NAUSEA/VOMITING. CM REVIEWED CHART AND SPOKE WITH CARE TEAM. CM MET WITH PT AT BEDSIDE THIS DAY. PT IS A&O X4. CM ROLE INTRODUCED. PT INDICATED SHE LIVES IN A HOUSE WITH HER SON AND DTR WITH 2 STEPS TO ENTER AND NO STEPS INSIDE. PT INDICATED THAT SHE HAD BEEN ON 5N FOLLOWING A STROKE AND HAD RECENTLY RETURNED HOME. PT INDICATED SHE HAD BEEN ON SERVICE WITH [facility] CALL CENTER OPERATOR AND SHE WOULD LIKE TO RESUME UPON DC. PT INDICATED SHE HAS ALL RECOMMENDED DME. NO OTHER CM INTERVENTION INDICATED AT THIS TIME. CASE CLOSED.
[2018-09-27 19:32] LABS: URINE BILIRUBIN NEGATIVE (Negative); URINE BLOOD 3+ (Negative); URINE CLARITY CLOUDY; URINE COLOR RED; URINE GLUCOSE-RANDOM* TRACE (Negative); URINE KETONES 1+ (Negative); URINE PROTEIN (DIPSTICK) 3+ (Negative); URINE SPECIFIC GRAVITY 1.025 (1.005-1.035)
[2018-09-27 19:43] VITALS: BP 137/76
[2018-09-27 19:53] LABS: URINE LEUKOCYTES-REFLEX 2+ (Negative); URINE NITRITE-REFLEX POSITIVE (Negative)
[2018-09-27 19:55] LABS: SQUAMOUS 4-10 Moderate /LPF (0-3)
[2018-09-27 19:56] LABS: CASTS None Seen /LPF (None Seen); CRYSTALS None Seen /LPF (None Seen)
[2018-09-27 19:57] LABS: BACTERIA-REFLEX 1-9 Few /HPF (None Seen); URINE RBC >20 Many /HPF (0-2); URINE WBC-REFLEX 6-15 Few /HPF (0-5)
[2018-09-28 08:04] VITALS: BP 136/69
[2018-09-28 10:43] VITALS: BP 136/69
--- NOTE | 2018-09-28 12:51 | NUR ---
Auricular Detoxification Specialist sent discharge home health orders to [facility].
== END 2018-09-28 12:05 | disposition home health service (06) | DRG 684 ==
LOC: ER 12:01 → 4W 13:50 → EROBS 13:50 → 4W 17:08 → ENTRNSPT 09-28 11:50 → EDTRNSPTSTS 09-28 11:51 → 4W 09-28 12:05
PROVIDERS: Nurse Practitioner Family; ADMIT Internal Medicine
DX: N17.9 Acute kidney failure, unspecified (principal); E86.0 Dehydration; I10 Essential (primary) hypertension; E66.01 Morbid (severe) obesity due to excess calories; I48.91 Unspecified atrial fibrillation; R13.10 Dysphagia, unspecified; E78.5 Hyperlipidemia, unspecified; E89.0 Postprocedural hypothyroidism; E11.42 Type 2 diabetes mellitus with diabetic polyneuropathy; Z68.38 Body mass index [BMI] 38.0-38.9, adult; Z87.442 Personal history of urinary calculi; Z86.73 Personal history of transient ischemic attack (TIA), and cerebral infarction without residual deficits; Z79.01 Long term (current) use of anticoagulants; Z79.51 Long term (current) use of inhaled steroids; Z79.4 Long term (current) use of insulin; Z79.899 Other long term (current) drug therapy; Z88.8 Allergy status to other drugs, medicaments and biological substances; Z23 Encounter for immunization
CPT/HCPCS: 10045

== ENCOUNTER → 2018-12-12 | Outpatient (CLI) | payer OTHER ==
[~2018-12-12] MED LIST changes: +HYDROCHLOROTH12.5 M1 PO
== END ==
LOC: RAD 11:55 → SPEECH 12:42 → RAD 12:42
DX: I69.391 Dysphagia following cerebral infarction (principal); I69.322 Dysarthria following cerebral infarction; R13.12 Dysphagia, oropharyngeal phase

== ENCOUNTER → 2019-03-20 | Outpatient (CLI) | payer OTHER ==
[~2019-03-20] MED LIST changes: +AMITRIPTYLINE100 MG PO; +CEFUROXIME500 MG PO; +GLYBURIDE 2.52.5 MG PO; +LOPRESSOR25 PO; +METOPROLOL SUCC50 MG PO
== END ==
LOC: MRI 12:55
DX: M47.816 Spondylosis without myelopathy or radiculopathy, lumbar region (principal); M48.062 Spinal stenosis, lumbar region with neurogenic claudication; M12.88 Other specific arthropathies, not elsewhere classified, other specified site; M51.26 Other intervertebral disc displacement, lumbar region; I63.9 Cerebral infarction, unspecified; E11.9 Type 2 diabetes mellitus without complications; Z79.4 Long term (current) use of insulin

== ENCOUNTER 2019-11-29 15:21 | Inpatient (IN) | payer OTHER ==
[~2019-11-29] VITALS: Ht 170.2 cm; Wt 122.3 kg
[2019-11-29 15:22] VITALS: BP 101/49
[2019-11-29 15:42] LABS: ABSOLUTE NEUTROPHILS 6.5 thou/uL (1.4-8.2); BASOPHILS 0.6 % (0.0-2.0); EOSINOPHILS 1.4 % (0.0-3.0); HEMATOCRIT 44.5 % (37.0-47.0); HEMOGLOBIN 14.3 gm/dL (12.0-15.0); LYMPHOCYTES 26.8 % (24.0-44.0); MCH 27.6 pg (26.0-34.0); MCHC 32.2 g/dL (28.0-37.0); MCV 85.5 fL (80.0-100.0); MONOCYTES 6.4 % (1.0-8.0); PLATELET COUNT 199 thou/uL (150-400); POLYS 64.8 % (36.0-66.0); RDW 15.6 % (10.5-14.5); WBC 10.1 thou/uL (4.0-11.0)
[2019-11-29 15:52] LABS: ANION GAP 7 mmol/L (7-16); BUN 20 mg/dL (7-18); CALCIUM 10.4 mg/dL (8.5-10.1); CHLORIDE 103 mmol/L (98-107); CO2 27 mmol/L (21-32); CREATININE 1.4 mg/dL (0.6-1.0); GLUCOSE 172 mg/dL (74-106); SODIUM 137 mmol/L (136-145)
[2019-11-29 16:01] LABS: MAGNESIUM 1.8 mg/dL (1.8-2.4); TROPONIN-I <0.06 ng/mL (<0.06)
[2019-11-29 16:55] LABS: URINE BILIRUBIN NEGATIVE (Negative); URINE BLOOD TRACE (Negative); URINE CLARITY CLEAR; URINE COLOR YELLOW; URINE GLUCOSE-RANDOM* NEGATIVE (Negative); URINE KETONES NEGATIVE (Negative); URINE NITRITE-REFLEX NEGATIVE (Negative); URINE PROTEIN (DIPSTICK) NEGATIVE (Negative); URINE SPECIFIC GRAVITY >= 1.030 (1.005-1.035); URINE UROBILINOGEN 0.2 E.U./dl (0.2-1.0)
[2019-11-29 16:56] LABS: URINE LEUKOCYTES-REFLEX 1+ (Negative)
[2019-11-29 17:09] LABS: BACTERIA-REFLEX 1-9 Few /HPF (None Seen); CRYSTALS None Seen /LPF (None Seen); SQUAMOUS 0-3 Few /LPF (0-3); URINE RBC None Seen /HPF (0-2); URINE WBC-REFLEX 6-15 Few /HPF (0-5)
[2019-11-29 17:10] LABS: CASTS None Seen /LPF (None Seen)
[2019-11-29 17:38] VITALS: BP 103/65
[2019-11-29 18:25] VITALS: BP 103/65
[2019-11-29 19:48] VITALS: BP 106/70
[2019-11-29 23:49] VITALS: BP 115/69
[2019-11-30 03:47] VITALS: BP 118/67
--- NOTE | 2019-11-30 05:14 | NUR ---
PT ARRIVED ON THE FLOOR BEFORE SHIFT CHANGED [facility] ER. PT IS ALERT AND ORIENTED X4 WITH NO SIGN OF DISTRESS NOTED IN PT. DENIES ANY PAIN. ADMISSION ASSESSMENT AND DATA COMPLETED. PT WAS ADEQUATELY ABLE TO ANSWER QUESTIONS ASKED. PT IS SEEN BY THE NEUROLOGIST WELL. PT IS STABLE. PT HAS HISTORY OF FALLS. FALL PRECAUTION IN PLACE. CALL LIGHT WITHIN REACH. SCHEDULED MEDS ADMINISTERED TO PT. TOLERATED PO INTAKE. DENIES ANY FURTHER NEEDS AT THIS TIME. PT IS STABLE THROUGHOUT THE NIGHT. NO ACUTE EVENTS. CONTINUE TO MONITOR PT.
[2019-11-30 06:29] LABS: ABSOLUTE NEUTROPHILS 4.3 thou/uL (1.4-8.2); BASOPHILS 0.6 % (0.0-2.0); EOSINOPHILS 1.8 % (0.0-3.0); HEMATOCRIT 40.6 % (37.0-47.0); HEMOGLOBIN 13.4 gm/dL (12.0-15.0); LYMPHOCYTES 35.1 % (24.0-44.0); MCH 27.9 pg (26.0-34.0); MCHC 32.9 g/dL (28.0-37.0); MCV 84.8 fL (80.0-100.0); MONOCYTES 5.9 % (1.0-8.0); POLYS 56.6 % (36.0-66.0); RBC 4.79 mil/uL (4.20-5.00); RDW 15.6 % (10.5-14.5); WBC 7.5 thou/uL (4.0-11.0)
[2019-11-30 06:40] LABS: CALCIUM 9.3 mg/dL (8.5-10.1); CREATININE 1.3 mg/dL (0.6-1.0); MAGNESIUM 1.7 mg/dL (1.8-2.4); POTASSIUM 3.7 mmol/L (3.5-5.1)
[2019-11-30 07:30] VITALS: BP 113/81
[2019-11-30 08:17] LABS: PLATELET COUNT 182 thou/uL (150-400)
[2019-11-30 08:18] LABS: LARGE PLATELETS FEW; PLATELET ESTIMATE 200
--- NOTE | 2019-11-30 08:50 | EKG ---
[facility] [place] [address] ELECTROCARDIOGRAM REPORT Name: GRACIELA NUÑEZ Room #: 204-P ADM IN M.R.#: [id number] Admission: 11/29/19 Attend Phys: Pablo Gardner MD Discharge: Date of : 56 Report #: [id number] THIS REPORT FOR: cc: Betty Morris MD, Nora P. 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1960 Requested By: Faustino Fuentes Order Number: [id number] MD: Hamilton Valenzuela Measurements Intervals [place] Rate: 69 P: RI: QRS: -13 QRSD: 111 T: -33 QT: 340 QTc: 365 Interpretive Statements Atrial fibrillation Incomplete left bundle branch block Poor R wave progression Compared to ECG 12/31/2018 23:38:19 Heart rate has slowed Electronically Signed On 11-30-2019 8:48:38 CDT by Hamilton Valenzuela [email or web address] <ELECTRONICALLY SIGNED> By: Hamilton Valenzuela MD, [facility] 11/30/19 0848 1536 1536 Hamilton Valenzuela MD, [facility] /EPI
[2019-11-30 11:35] VITALS: BP 124/68
[2019-11-30 15:45] VITALS: BP 126/80
[2019-11-30 16:40] VITALS: BP 126/80
--- NOTE | 2019-11-30 16:56 | NUR ---
FAXED PAPERWORK TO TRANSFER CENTER AT [facility] RECEIVED CONFIRMATION WAS NOTIFIED THAT HOSPITAL IS FULL NOT ABLE TO ACCEPT TRANSFER. FAXED PAPERWORK TO TRANSFER CENTER AT [facility] RECEIVED CONFIRMATION [facility] IS NOTIFYING HOSPITAL OF TRANSFER REQUEST. AMBULANCE FORM FAXED TO [facility] THEY WILL NEED TO FILL OUT ACCEPTING FACILITY.
--- NOTE | 2019-11-30 17:37 | NUR ---
Consult rec'd to arrange for acute transfer to or [facility] for urology services d/t hydronephrosis /obstructing stone. Obgyn Hospitalist Physician spoke with the pt via phone and she is agreeable. She does not have a preference. Referrals called and faxed per the dc kit planner to both [facility] and [facility]. The transfer RN at both [facility] to call the attending to discuss the case. Radiology uploaded to the cloud. Chart copy and disc ready to be sent with the pt. [facility] form and the transfer form are on the chart should the pt be accepted and can transfer this evening. Nursing updated. Awaiting call back on accptance.
--- NOTE | 2019-11-30 17:52 | NUR ---
PT CARE ASSUMED AT 0700. ASSESSMENTS CHARTED. MEDICATION CHARTED. PT TO MRI TODAY OF HEAD, THORACIC AND LUMBAR SPINE. CT TODAY OF ABDOMEN/PELVIS. PT UP TO CHAIR TODAY. VERY WEAK AND UNSTEADY ON HER FEET. PT TO BE TRANSFERRED TODAY TO MEDICAL FACILITY YET TO BE DETERMINED. UROLOGY SERVICES NEEDED.
[2019-11-30] MEDS ORDERED: ROCEPHIN 11 GM/1001 IV (19:14)
[2019-11-30 19:36] VITALS: BP 117/72
--- NOTE | 2019-12-04 18:41 | HC ---
[facility] [place] [address] CONSULTATION Name: GRACIELA NUÑZE Room #: 204-P [facility] IN .R.#: [id number] Admission: 11/29/19 Attend Phys: Pablo Gardner MD Discharge: 11/30/19 Date of : 56 Report #: [id number] THIS REPORT FOR: cc: Betty Morris MD, Nora P. MD Khosla, Parveen K. MD ~ CC: Pablo Trujillo DATE OF SERVICE: 11/29/2019 DATE OF SERVICE: 11/29/2019 and 11/30/2019. HISTORY OF PRESENT ILLNESS: This is a 59-year-old female patient who was seen briefly last night and the consultation will be completed this morning. The patient's history is very unclear. She indicated to Emergency Room physician that she had weakness on the left side. To me, she indicates that she has weakness on both lower extremities, which is worse on the left side. The duration of this weakness is not clear. She has told Emergency Room physician that it is going on for 5 days. To me, she told it is going on for much longer period of time and it became worse during that time. She also has some difficulty with confusion and a stroke is suspected. She is also on Eliquis, which I understand is because of atrial fibrillation. She denies any weakness in her upper extremities. Her examination has indicated lymphedema, but looks like her position sense is intact. She does have diabetes. She has a history of atrial fibrillation. She is on chronic anticoagulation. She said her right side has never been good since her stroke. Similarly, she indicates her speech has never been good since her stroke. PHYSICAL EXAMINATION: Does indicate weakness in both lower extremities, which is present on both sides, but she says the left-sided weakness is somewhat new compared to the right side. It is difficult for me to tell because I have never seen her before. Reflexes are diminished as expected with diabetes and lymphedema. DIAGNOSTICS: She had a CT scan of the head and lumbar spine in Emergency Room that does show arthritis and spondylosis, but nothing which can explain the patient's symptoms. IMPRESSION: This patient needs further workup. She needs MRI of the brain and thoracic spine as an initial workup. She already had a lumbar spine CT and ultimately, she is going to need the MRI of the whole spine depending upon what the lower spine shows. It will not be possible to do the whole MRI in one setting, so I asked them to get the MRI of the brain done as soon as possible and MRI of the thoracic spine done. [place] [address] CONSULTATION Name: GRACIELA NUÑEZ Jamey Room #: 204-P DIS IN M.R.#: [id number] Admission: 11/29/19 Attend Phys: Pablo Gardner MD Discharge: 11/30/19 Date of : 56 Report #: [id number] upper lumbar spine also. If that does not show any hematoma or any other pathology which can explain the symptoms, then we need to do further workup on it, but the emphasis should be to looking at her spine as much as her brain and even more so the spine than the brain. We will ask the MRI to do the MRI as soon as possible and I will follow up this patient as soon as it is done. Thank you very much for this referral. <ELECTRONICALLY SIGNED> By: Aristides Trujillo MD 12/04/19 1841 0534 0604 Aristides Trujillo MD /nt
== END 2019-11-30 22:00 | disposition short-term general hospital (02) | DRG 65 ==
LOC: ER 15:21 → EROBS 17:31 → 2N 17:31
PROVIDERS: Emergency Medicine; Nurse Practitioner; ADMIT Internal Medicine
DX: I63.9 Cerebral infarction, unspecified (principal); N17.9 Acute kidney failure, unspecified; N13.6 Pyonephrosis; N39.0 Urinary tract infection, site not specified; E89.0 Postprocedural hypothyroidism; I48.91 Unspecified atrial fibrillation; E78.5 Hyperlipidemia, unspecified; E11.40 Type 2 diabetes mellitus with diabetic neuropathy, unspecified; M17.11 Unilateral primary osteoarthritis, right knee; E83.42 Hypomagnesemia; N18.9 Chronic kidney disease, unspecified; E11.22 Type 2 diabetes mellitus with diabetic chronic kidney disease; I12.9 Hypertensive chronic kidney disease with stage 1 through stage 4 chronic kidney disease, or unspecified chronic kidney disease; Z88.6 Allergy status to analgesic agent; Z79.01 Long term (current) use of anticoagulants
CPT/HCPCS: 10081

== ENCOUNTER 2020-01-01 11:50 | Inpatient (IN) | payer OTHER ==
[~2020-01-01] VITALS: Ht 175.3 cm; Wt 113.4 kg
--- NOTE | ~2020-01-01 | HC ---
[facility] [place] [address] CONSULTATION Name: GRACIELA NUÑEZ Room #: 213-P ADM IN M.R.#: [id number] Admission: 01/01/20 Attend Phys: Julio Vaughan MD Discharge: Date of : 56 Report #: [id number] THIS REPORT FOR: cc: Betty Morris MD,Aristides Cavanaugh MD, MD ~ CC: Julio Morris DATE OF SERVICE: 01/02/2020 HISTORY OF PRESENT ILLNESS: This is a 59-year-old female patient who is a poor historian. She was admitted with what she said is leg weakness. She had some ambulation difficulty. She is feeling better. She is not certain that she is feeling back to normal or not. Her MRI has demonstrated old stroke as well as a new stroke. She has pretty significant lymphedema of lower extremities, which appeared to be secondary to her baseline. She was here not too long ago and she was on inadequate dosages of Eliquis. She does have a history of atrial fibrillation. REVIEW OF SYSTEMS: Difficult because the history is not very clear. In fact, the history has never been cleared in the past and this patient neither she had lymphedema. She had presented with some leg weakness the last time. Therefore, we had done an MRI of lumbar spine and thoracic spine. Cervical spine was ordered, but I do not think it was ever done. She also had MRI of the thoracic spine as far back as 2018. She indicated she did not have any trouble with the arms at this time. A 14-point review of system was carried out in this patient extensive history this patient has. She has a history of slurring of the speech. She has difficulty with ambulation, has a history of hypertension, AFib, hyperlipidemia, prior history of stroke. She has a history of kidney stones, thyroidectomy, lymphedema, diabetes, neuropathy. This was a relevant 14-point review of system. PAST MEDICAL HISTORY: Positive for stroke. FAMILY HISTORY: Unremarkable. SOCIAL HISTORY: She does not smoke or drink any alcohol. PHYSICAL EXAMINATION: Indicated that she is alert. She is responsive. She can follow simple commands. Her speech to me looks intact. Cranial nerve examinations appear noncontributory. Her strength in the upper extremity looks unremarkable. In the lower extremities, it is difficult to tell. She has a lot of bandages there. She has a history of lymphedema. Her position sense appeared to be intact. She is an obese individual. Her hearing and vision looks adequate. There is no thyroid mass. She has a history of atrial [facility] [address] [place] [address] CONSULTATION Name: GRACIELA NUÑEZ Room #: [facility] IN ..#: [id number] Admission: 01/01/20 Attend Phys: Julio Vaughan MD Discharge: Date of : 56 Report #: [id number] fibrillation. She does not have any respiratory difficulty. Blood pressure is 137/86, respirations 18, pulse is 83, temperature is 97.4. LABORATORY DATA: Her white count is 12.6. MRI has indicated a recent and old stroke. I am not sure whether that stroke is new or not. Because the comparison was not made with the last, but looks new. IMPRESSION: This patient is a poor historian and it is difficult to get a good history on her. It looks like she is having recurrent stroke. I am not sure about the medication in this patient. From the medication list, it does look like she is on any anticoagulation. Last time she was here, she was taking inadequate anticoagulation. Her spine has been worked up. I do not know why a cervical spine MRI was canceled, last time, which Neurosurgery wanted to get it done. That can be done for completeness because she is a diabetic and she will not have a long tract sign, but the main thing is that she needs to be on adequate anticoagulation and I am not sure she is on and after spending a lot of time with her last night and this morning, I am not sure how she was taking that. We will discuss the patient with Dr. Vaughan who is the admitting physician and try to figure out her anticoagulation. I will suggest doing an MRI of the C-spine to complete the workup as recommended by Neurosurgery because she will not have long tract sign that probably is going to be okay, but the main thing is to stage 1 of anticoagulation by getting some good history in this patient. A total of about 50 minutes of time was spent taking care of this patient and majority was spent counseling and coordinating and it was done in visit last night and this morning. By: 0944 1030 Aristides Trujillo MD /nt
[~2020-01-01 11:50] MED LIST changes: +ROCEPHIN 11 GM/1001 IV
[2020-01-01 11:51] VITALS: BP 135/82
[2020-01-01 12:09] LABS: ABSOLUTE NEUTROPHILS 8.6 thou/uL (1.4-8.2); BASOPHILS 0.7 % (0.0-2.0); EOSINOPHILS 1.4 % (0.0-3.0); HEMATOCRIT 41.9 % (37.0-47.0); HEMOGLOBIN 13.4 gm/dL (12.0-15.0); LYMPHOCYTES 23.5 % (24.0-44.0); MCH 27.3 pg (26.0-34.0); MCHC 32.1 g/dL (28.0-37.0); MCV 85.3 fL (80.0-100.0); MONOCYTES 6.2 % (1.0-8.0); POLYS 68.2 % (36.0-66.0); RBC 4.91 mil/uL (4.20-5.00); RDW 15.9 % (10.5-14.5); WBC 12.6 thou/uL (4.0-11.0)
[2020-01-01 12:23] LABS: ANION GAP 5 mmol/L (7-16); BUN 21 mg/dL (7-18); CALCIUM 9.6 mg/dL (8.5-10.1); CHLORIDE 105 mmol/L (98-107); CO2 29 mmol/L (21-32); CREATININE 1.6 mg/dL (0.6-1.0); GLUCOSE 120 mg/dL (74-106); POTASSIUM 4.8 mmol/L (3.5-5.1); SODIUM 139 mmol/L (136-145)
[2020-01-01 12:28] LABS: ALBUMIN 2.7 g/dL (3.4-5.0); DIRECT BILIRUBIN < 0.1 mg/dL (<0.1-0.2); SGOT 17 U/L (15-37); SGPT 17 U/L (30-65); TOTAL BILIRUBIN 0.3 mg/dL (0.2-1.0); TOTAL PROTEIN 7.1 g/dL (6.4-8.2)
[2020-01-01 13:11] LABS: PLATELET COUNT 209 thou/uL (150-400)
[2020-01-01 14:34] LABS: URINE BILIRUBIN NEGATIVE (Negative); URINE BLOOD 3+ (Negative); URINE CLARITY CLEAR; URINE COLOR YELLOW; URINE GLUCOSE-RANDOM* NEGATIVE (Negative); URINE KETONES NEGATIVE (Negative); URINE LEUKOCYTES-REFLEX NEGATIVE (Negative); URINE NITRITE-REFLEX NEGATIVE (Negative); URINE PROTEIN (DIPSTICK) NEGATIVE (Negative); URINE SPECIFIC GRAVITY <= 1.005 (1.005-1.035)
[2020-01-01 14:43] LABS: BACTERIA-REFLEX 1-9 Few /HPF (None Seen); CASTS None Seen /LPF (None Seen); CRYSTALS None Seen /LPF (None Seen); SQUAMOUS 0-3 Few /LPF (0-3); URINE RBC >20 Many /HPF (0-2); URINE WBC-REFLEX 0-5 Rare /HPF (0-5)
[2020-01-01 14:52] VITALS: BP 111/70
--- NOTE | 2020-01-01 17:30 | NUR ---
CALLED TO GIVE REPORT. WAS INFORMED THAT UNIT DID NOT KNOW THEY WERE GETTING A PATIENT. BED ASSIGNMENT RECEIVED AT 16:41. ATTEMPED TO CALL REPORT AT 17:27. HAND OFF TOOL SENT AT 14:52.
--- NOTE | 2020-01-01 17:40 | NUR ---
CALLED SUPERVISOR STONE TO NOTIFY OF DIFFICULTY GIVING REPORT TO UNIT. STATED SHE WOULD CALL UNIT. CALLED BACK TO UNIT, AGAIN INFORMED BY STAFF THAT THEY WERE UNABLE TO GET REPORT.
--- NOTE | 2020-01-01 17:51 | NUR ---
SPOKE WITH CUSTOMER CARE AGENT. INFORMED THAT UNIT WAS BUSY WITH ANOTHER PT AND THEY WOULD CALL US BACK. WAS INFORMED THAT REPORT WOULD BE GIVEN PRIOR TO SHIFT CHANGE. VOICED CONCERNS TO CUSTOMER CARE AGENT THAT UNIT WAS PROLONGING PT TRANSPORT TO UNIT.
--- NOTE | 2020-01-01 18:30 | NUR ---
ATTMEMPTED TO CALL REPORT. THE PERSON WHO ANSWERED THE PHONE SAID, "I WILL GET YOU THE CHARGE NURSE" THEN PLACED ME ON HOLD. EWELINA PICKED UP A FEW MINUTES LATER AND SAID THEY ARE TOO BUSY AND TOO SHORT STAFFED TO TAKE REPORT ON THIS SHIFT. SHE SAID IT WILL HAVE TO "WAIT UNTIL PREMIUM CARD CANCELLATION CLERK."
[2020-01-01 18:58] VITALS: BP 98/57
[2020-01-01 19:29] VITALS: BP 117/68
[2020-01-01 23:27] LABS: CHOLESTEROL 130 mg/dL (<200); HDL CHOLESTEROL 42 mg/dL (>40); LDL CHOLESTEROL 66 mg/dL (<100); TC:HDL 3.1 Ratio (Not establshd); TRIGLYCERIDE 110 mg/dL (<150); VLDL 22 mg/dL (<40)
[2020-01-01 23:34] LABS: SERUM ASSESSMENT Clear
[2020-01-02] VITALS: BP 94/64
[2020-01-02 06:43] LABS: CHOLESTEROL 114 mg/dL (<200); HDL CHOLESTEROL 38 mg/dL (>40); LDL CHOLESTEROL 55 mg/dL (<100); SERUM ASSESSMENT Clear; TRIGLYCERIDE 109 mg/dL (<150); VLDL 22 mg/dL (<40)
--- NOTE | 2020-01-02 07:44 | NUR ---
PT ADMITTED TO ROOM 213 FROM ER WITH C/O OF LOWER EXTREMITY WEAKNESS, SPEECH IS CLEAR AND VSS, BG LOW GAVE OJ AND JELLO AND BG UP TO 102, NO C/O PAIN, LEGS WRAPPED WITH OSKAR WRAP FROM HOME HEALTH FOR HER LYMPHODEMA, INCON'T OF BLADDER SEVERAL TIMES THRU THE NOC, STARTED LOVENOX, HR REMAINS AFIB PER MONITOR, RESTING QUIETLY IN ROOM THEU THE NOC, STATES SHE FEELS REAALY WELL THIS MORNING, MRI FORM FILLED OUT AND FAXED TO MRI, REPORT GIVEN TO NEXT SHIFT TO CON'T WITH PPOC.
[2020-01-02 07:45] VITALS: BP 137/86
--- NOTE | 2020-01-02 08:03 | EKG ---
[facility] [place] [address] ELECTROCARDIOGRAM REPORT Name: GRACIELA NUÑEZ Room #: 213-P ADM IN M.R.#: [id number] Admission: 01/01/20 Attend Phys: Julio Vaughan MD Discharge: Date of : 56 Report #: [id number] THIS REPORT FOR: cc: Betty Morris MD, Nora P. 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1960 Requested By: Avani Crespo Order Number: [id number] MD: Hamilton Valenzuela Measurements Intervals [place] Rate: 98 P: OR: QRS: -26 QRSD: 120 T: 59 QT: 354 QTc: 453 Interpretive Statements Atrial fibrillation Nonspecific intraventricular conduction delay Poor R wave progression Baseline wander in lead(s) V3 Compared to ECG 11/29/2019 15:36:09 No significant change was found Electronically Signed On 01-02-2020 8:03:05 CDT by Hamilton Valenzuela [email or web address] <ELECTRONICALLY SIGNED> By: Hamilton Valenzuela MD, FAC 01/02/20 0803 1217 1217 Hamilton Valenzuela MD, FAC /EPI
--- NOTE | 2020-01-02 10:48 | NUR ---
Met with patient who admits with stroke like symptoms. Patient A/Ox3 she reports she lives in independent home with adult children 2 sons, and a dtr. Dtr has disability but patient reports she is able to care for herself and assist patient if needed. She does not work. 2 Sons work but one works nights and other day so avail if needed. Patient has walker and wc and uses walker in home and community. She has shower chair. All needs on one level. 2 concrete steps to enter. PCP Dr Morris. Utilized [employer] in past and agreeable to rec services again. Therapy evals in process, patient eager for home.
[2020-01-02] MEDS ORDERED: LISINOPRIL10 MG PO (11:22)
[2020-01-02] MEDS ORDERED: LIPITOR 40 MG T40 M1 PO (11:22)
[2020-01-02] MEDS ORDERED: TAMSULOSIN HCL0.4 MG PO (11:22)
[2020-01-02] MEDS ORDERED: HYDROCHLOROTH12.5 M2 PO (11:23)
[2020-01-02] MEDS ORDERED: LANTUS SOL100 UNIT/1 SUBQ (11:24)
[2020-01-02] MEDS ORDERED: NOVOLOG FL100 UNIT/M SUBQ (11:25)
[2020-01-02] MEDS ORDERED: HYDRALAZINE 10M10 MG PO (11:27)
[2020-01-02] MEDS ORDERED: METFORMIN HCL500 MG PO (11:28)
--- NOTE | 2020-01-02 11:44 | 2DMMODE ---
[facility] [place] [address] 2 D/M-MODE ECHOCARDIOGRAM Name: GRACIELA NUÑEZ Room #: 213-P ADM IN ..#: [id number] Admission: 01/01/20 Attend Phys: Julio Vaughan MD Discharge: Date of : 56 Report #: [id number] THIS REPORT FOR: cc: Betty Morris MD, Nora P. MD Lundgren, Craig H. MD [facility] ~ APPROVED REPORT Study performed: 01/02/2020 10:54:05 EXAM: Comprehensive 2D, Doppler, and color-flow Echocardiogram Patient Location: Bedside Room #: 213 Status: routine BSA: 2.27 HR: 97 bpm BP: 137/86 mmHg Rhythm: Atrial Fibrillation Other Information Study Quality: Adequate Indications CVA/TIA Diabetes Atrial Fibrillation Hypertension/HDD Echo Enhancing Agent Indication: Rule out Shunt Agent(s) / Amount(s) Used: Agitated Saline 7 cc 2D Dimensions RVDd: 30.37 mm IVSd: 12.78 (7-11mm) LVOT Diam: 19.82 (18-24mm) LVDd: 42.82 mm PWd: 14.70 (7-11mm) Ascending Ao: 29.32 (22-36mm) LVDs: 27.62 (25-40mm) Aortic Root: 29.44 mm IVC: 16.00 mm Volumes Left Atrial Volume (Systole) Single Plane 4CH: 88.14 mL Single Plane 2CH: 84.66 mL LA ESV Index: 42.00 mL/m2 [facility] [address] [place] [address] 2 D/M-MODE ECHOCARDIOGRAM Name: GRACIELA NUÑEZ Room #: 213-P [facility] IN ..#: [id number] Admission: 01/01/20 Attend Phys: Homer Talavera Discharge: Date of : 56 Report #: [id number] Aortic Valve AoV Peak Elton.: 1.45 m/s AO Peak Gr.: 8.39 mmHg LVOT Max P.82 mmHg LVOT Max V: 1.21 m/s HATTIE Vmax: 2.57 cm2 Pulmonary Valve PV Peak Elton.: 1.21 m/s PV Peak Gr.: 5.89 mmHg Tricuspid Valve TR Peak Elton.: 2.25 m/s TR Peak Gr.: 20.31 mmHg PA Pressure: 25.00 mmHg Left Ventricle The left ventricle is normal size. There is normal LV segmental wall motion. Mild concentric left ventricular hypertrophy. The left ventricular systolic function is normal. The left ventricular ejection fraction is within the normal range. LVEF is 60-65%. This study is not technically sufficient to allow evaluation of the LV diastolic function due to atrial fibrillation. Right Ventricle The right ventricle is normal size. The right ventricular systolic function is normal. Atria Left atrium is dilated. No shunting by contrast bubble injection Right atrium is dilated. Aortic Valve The aortic valve is mildly calcified, trileaflet No aortic regurgitation is present. There is no aortic valvular stenosis. Mitral Valve The mitral valve is normal in structure. There is no mitral valve regurgitation noted. No evidence of mitral valve stenosis. Tricuspid Valve The tricuspid valve is normal in structure. There is trace tricuspid regurgitation. Estimated PAP 25 mmHg. There is no pulmonary hypertension. Pulmonic Valve [facility] [address] [place] [address] 2 D/M-MODE ECHOCARDIOGRAM Name: GRACIELA NUÑEZ Jamey Room #: 213-P [facility] IN M.R.#: [id number] Admission: 01/01/20 Attend Phys: Homer Talavera Discharge: Date of : 56 Report #: [id number] The pulmonary valve is normal in structure. There is no pulmonic valvular regurgitation. Great Vessels The aortic root is normal in size. IVC is normal in size and collapses >50% with inspiration. Pericardium There is no pericardial effusion. <Conclusion> The left ventricular systolic function is normal. There is normal LV segmental wall motion. LVEF is 60-65%. This study is not technically sufficient to allow evaluation of the LV diastolic function due to atrial fibrillation. No shunting by contrast bubble injection The aortic valve is mildly calcified, trileaflet. No aortic regurgitation or stenosis. The mitral valve is normal in structure. No mitral valve regurgitation. There is trace tricuspid regurgitation. Estimated pulmonary artery pressure of 25 mmHg. There is no pericardial effusion. <ELECTRONICALLY SIGNED> By: Hamilton Valenzuela MD, [facility] 01/02/20 1144 1144 1144 Hamilton Valenzuela MD, [facility] /INF
[2020-01-02 12:00] VITALS: BP 117/69
--- NOTE | 2020-01-02 12:58 | NUR ---
qualitative field coordinator to see patient. this rn evaluated patient in the ER. pt appears a&ox3. speech is still slurred however facial droop has also improved. pt sitting up and leaning to right. patient given stroke educational material with current cholesterol levels already recorded. updated patient on plan of care. patient has no complaints or concerns at this time. stroke risk factors also covered. will continue to monitor.
[2020-01-02 15:11] VITALS: BP 123/77
[2020-01-02 16:32] VITALS: BP 123/77
--- NOTE | 2020-01-02 16:33 | NUR ---
Patient has [facility] care current with service. If patient to dc this evening with HH care. They are aware and casemgt will fax orders in am
[2020-01-02 20:00] VITALS: BP 116/79
--- NOTE | 2020-01-02 20:03 | NUR ---
ASSUMDE CARE AT SHIFT CHANGE, ALERT AND ORIENTED X4, AND DENIES ANY DISCOMFORT. REMAINS AFIB ON THE MONITOR, AND TACHYCARDIAC WITH ACTIVITIES. BG 63 AT DINNER TIME, 8 OZ APPLE JUICE GIVEN, AND AT 69. PATIENT ATE DINNER WELL. REPORT GIVEN TO NORMA DAVIS, AND WILL CONTINUE WITH POC.
[2020-01-03 02:06] LABS: GLYCOHEMOGLOBIN (HGB A1C) 7.1 % (4.8-5.6)
--- NOTE | 2020-01-03 03:49 | NUR ---
PT AO X4. ASSUMED CARE 1900. ASSESSMENTS DOCUMENTED. LYMPHEDEMA WRAPS INTACT. NO SIGN OF OOZING NOTED ON THE WRAPS. AFIB ON THE MONITOR, RATE CONTROLLED. PT VOIDING TO BEDSIDE COMMODE , WILL X 1 ASSIST. DENIES ANY PAIN, CHEST PAIN, NAUSEA, VOMITING, NONE REPORTED. WILL CONTINUE WITH THE CURRENT POC.
[2020-01-03 04:00] VITALS: BP 116/65
[2020-01-03 08:00] VITALS: BP 119/69
--- NOTE | 2020-01-03 08:36 | NUR ---
PATIENT SEEN FOR REHAB CONSULT ON 01/02/20 BY PIPE TRONCOSO NP WITH DR. ALCARAZ. PATIENT IS A CANDIDATE FOR A SHORT REHAB STAY, BUT PATIENT IS WANTING TO RETURN TO HER HOME. IF PATIENT DECIDES THAT SHE WOULD LIKE FURTHER REHAB, [facility] CAN ACCEPT. PATIENT WILL NEED INSURANCE AUTHORIZATION PRIOR TO BEING ADMITTED.
[2020-01-03 12:00] VITALS: BP 102/76; BP 112/80
--- NOTE | 2020-01-03 13:36 | NUR ---
spoke with patient regarding rehab vs home. patient reports good stay on rehab unit but patient really wants to dc home.
[2020-01-03 15:23] LABS: ALBUMIN 2.7 g/dL (3.4-5.0); CALCIUM 9.5 mg/dL (8.5-10.1); CREATININE 1.5 mg/dL (0.6-1.0); POTASSIUM 4.5 mmol/L (3.5-5.1); TOTAL BILIRUBIN 0.3 mg/dL (0.2-1.0); TOTAL PROTEIN 7.7 g/dL (6.4-8.2)
[2020-01-03 19:30] VITALS: BP 127/69
--- NOTE | 2020-01-03 19:50 | NUR ---
ALERT AND ORIENTED X4, AFIB ON THE MONITOR AT 93-120, AND OTHER VSS. DR DREW NOTIFIED ABOUT THE PATIENT HR, AND ORDERED MEDS GIVEN. PLAN IS D/C HOME TOMORROW. AND WILL CONTINUE TO MONITOR.
[2020-01-04] VITALS (7 sets, daily range): BP systolic 123–150; BP diastolic 62–92
--- NOTE | 2020-01-04 06:43 | NUR ---
SLEPT MOST OF SHIFT. ASSISTED UP TO VOID NEEDED. FIRST TIME UP VOIDED 50 CC THEN BLADDER SCAN OF 448. ASSISTED UP 30 MINUTES LATER AND VOIDED 500CC. WORKING ON GOALS AND PLAN OF CARE FOR NOC. TELEMETRY SHOWS AFIB CONTROLLED 90'S. PROGRESSING TOWARDS DISCHARGE GOALS. CONTINUE TO ASSES.
--- NOTE | 2020-01-04 11:43 | NUR ---
ASSUMED CARE OF PATIENT AT 0700. ASSESSMENT COMPLETED. DENIES ANY PAIN. CONTROLLED AFIB ON THE MONITOR. HR WITH PT NO GREATER THAN 110'S. ACCUCHECK AC&HS. REPORT GIVEN TO NORMA ERWIN AT 1130 FOR CONTINUATION OF CARE.
--- NOTE | 2020-01-04 14:20 | NUR ---
pt calls coordinator skill training program with a complaint that she has been waiting to be discharged however "it's taking to long". I did go and visit with the patient and tried to explain to her the delay. The patient's RN, YAIMA was also working on a solution. It appears the discharge paper work is still just a draft. Dr joel matias. Patient verbalized understanding.
[2020-01-04] MEDS ORDERED: KAPSPARGO SPRI100 MG PO (14:28)
--- NOTE | 2020-01-04 17:21 | NUR ---
PT CARE ASSUMED AT 1330. ASSESSMENT CHARTED. MEDICATION CHARTED. PT COMPLAINED THAT SHE WAS SUPPOSED TO BE DISCHARGED. PT REMOVED TELEMETRY AND IV. I SPOKE WITH DR. RYAN REPLACED, TELEMETRY REPLACED. ONETIME METOPROLOL, PT DISCHARGED AT 1600. IV D/C'D. TELEMETRY D/C'D.
--- NOTE | 2020-01-04 17:48 | NUR ---
Pt dcing home this evening. orders faxed to [facility] to resume prior services. [place] RN notified of dc this evening. No other cm interventions indicated. Case closed.
== END 2020-01-04 17:30 | disposition home health service (06) | DRG 64 ==
LOC: ER 11:50 → 2N 16:41 → EROBS 16:41 → 2N 18:59
PROVIDERS: Emergency Medicine; Psychiatry & Neurology Neuromuscular Medicine; ADMIT Hospitalist; ATTEND Hospitalist
DX: I63.9 Cerebral infarction, unspecified (principal); E43 Unspecified severe protein-calorie malnutrition; I10 Essential (primary) hypertension; E89.0 Postprocedural hypothyroidism; I48.91 Unspecified atrial fibrillation; E78.5 Hyperlipidemia, unspecified; E11.40 Type 2 diabetes mellitus with diabetic neuropathy, unspecified; I89.0 Lymphedema, not elsewhere classified; E11.42 Type 2 diabetes mellitus with diabetic polyneuropathy; E66.9 Obesity, unspecified; M17.11 Unilateral primary osteoarthritis, right knee; Z88.6 Allergy status to analgesic agent; Z90.710 Acquired absence of both cervix and uterus; Z79.82 Long term (current) use of aspirin; Z79.899 Other long term (current) drug therapy; Z87.442 Personal history of urinary calculi; Z82.49 Family history of ischemic heart disease and other diseases of the circulatory system; Z68.36 Body mass index [BMI] 36.0-36.9, adult
CPT/HCPCS: 10081

== ENCOUNTER 2020-02-01 16:32 | Emergency (ER) | payer OTHER ==
[~2020-02-01] VITALS: Ht 170.2 cm; Wt 102.1 kg
[~2020-02-01 16:32] MED LIST changes: +HYDROCHLOROTH12.5 M2 PO; +KAPSPARGO SPRI100 MG PO; +LANTUS SOL100 UNIT/1 SUBQ; +LIPITOR 40 MG T40 M1 PO; +NOVOLOG FL100 UNIT/M SUBQ
[2020-02-01 16:54] LABS: ABSOLUTE NEUTROPHILS 15.2 thou/uL (1.4-8.2); BASOPHILS 0.4 % (0.0-2.0); EOSINOPHILS 0.5 % (0.0-3.0); HEMOGLOBIN 14.2 gm/dL (12.0-15.0); LYMPHOCYTES 9.2 % (24.0-44.0); MCH 27.4 pg (26.0-34.0); MCHC 32.2 g/dL (28.0-37.0); MCV 85.2 fL (80.0-100.0); MONOCYTES 4.1 % (1.0-8.0); PLATELET COUNT 289 thou/uL (150-400); POLYS 85.8 % (36.0-66.0); RBC 5.16 mil/uL (4.20-5.00); RDW 15.5 % (10.5-14.5); WBC 17.7 thou/uL (4.0-11.0)
[2020-02-01 17:00] LABS: ANION GAP 9 mmol/L (7-16); BUN 14 mg/dL (7-18); CALCIUM 10.3 mg/dL (8.5-10.1); CHLORIDE 104 mmol/L (98-107); CO2 27 mmol/L (21-32); CREATININE 1.2 mg/dL (0.6-1.0); GLUCOSE 145 mg/dL (74-106); POTASSIUM 4.8 mmol/L (3.5-5.1); SODIUM 140 mmol/L (136-145)
[2020-02-01 17:10] LABS: ALBUMIN 2.8 g/dL (3.4-5.0); LIPASE 146 U/L (73-393); MAGNESIUM 1.6 mg/dL (1.8-2.4); SGOT 32 U/L (15-37); SGPT 27 U/L (30-65); TOTAL BILIRUBIN 0.4 mg/dL (0.2-1.0); TOTAL PROTEIN 8.5 g/dL (6.4-8.2); TROPONIN-I <0.06 ng/mL (<0.06)
[2020-02-01 19:19] LABS: URINE BILIRUBIN NEGATIVE (Negative); URINE BLOOD 3+ (Negative); URINE CLARITY CLOUDY; URINE COLOR YELLOW; URINE GLUCOSE-RANDOM* NEGATIVE (Negative); URINE KETONES NEGATIVE (Negative); URINE PROTEIN (DIPSTICK) 2+ (Negative); URINE UROBILINOGEN 0.2 E.U./dl (0.2-1.0)
[2020-02-01 19:20] LABS: URINE LEUKOCYTES-REFLEX 2+ (Negative); URINE NITRITE-REFLEX POSITIVE (Negative)
[2020-02-01 19:28] LABS: AMP/METHAMP Negative (Negative); BARBITURATES Negative (Negative); BENZODIAZEPINES Negative (Negative); COCAINE Negative (Negative); METHADONE Negative (Negative); OPIATES Negative (Negative); PCP Negative (Negative)
[2020-02-01 19:35] LABS: BACTERIA-REFLEX >30 Many /HPF (None Seen); CASTS None Seen /LPF (None Seen); SQUAMOUS 0-3 Few /LPF (0-3); URINE RBC 3-10 Few /HPF (0-2); URINE WBC-REFLEX >25 Many /HPF (0-5)
[2020-02-01 19:36] LABS: CRYSTALS None Seen /LPF (None Seen)
[2020-02-01 23:25] VITALS: BP 116/53
--- NOTE | 2020-02-02 09:19 | EKG ---
[facility] [place] [address] ELECTROCARDIOGRAM REPORT Name: GRACIELA NUÑEZ Room #: DEP [facility]#: [id number] Admission: 02/01/20 Attend Phys: Discharge: 02/01/20 Date of : 56 Report #: [id number] THIS REPORT FOR: cc: Betty Morris MD, Nora P. MD Lundgren, Craig H. 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1960 Requested By: Nelson Ledesma Order Number: [id number] MD: Hamilton Valenzuela Measurements Intervals [place] Rate: 160 P: [place]: QRS: -26 QRSD: 99 T: 198 QT: 274 QTc: 447 Interpretive Statements Atrial fibrillation with rapid V-rate Borderline left axis deviation Poor R wave progression Repolarization abnormality, prob rate related Compared to ECG 01/01/2020 12:17:06 Heart rate has increased Electronically Signed On 02-02-2020 9:19:18 CDT by Hamilton Valenzuela [email or web address] <ELECTRONICALLY SIGNED> By: Hamilton Valenzuela MD, [facility] 02/02/20 0919 1636 1636 Hamilton Valenzuela MD, [facility] /EPI
== END 2020-02-01 23:27 | disposition short-term general hospital (02) ==
LOC: ER 16:32
PROVIDERS: Emergency Medicine
DX: I48.20 Chronic atrial fibrillation, unspecified (principal); Z20.828 Contact with and (suspected) exposure to other viral communicable diseases; I89.0 Lymphedema, not elsewhere classified; N39.0 Urinary tract infection, site not specified; N20.1 Calculus of ureter; E11.9 Type 2 diabetes mellitus without complications; I10 Essential (primary) hypertension; E78.5 Hyperlipidemia, unspecified; G62.9 Polyneuropathy, unspecified; M13.861 Other specified arthritis, right knee; E83.42 Hypomagnesemia; Z86.73 Personal history of transient ischemic attack (TIA), and cerebral infarction without residual deficits; Z79.899 Other long term (current) drug therapy; Z79.4 Long term (current) use of insulin; Z88.5 Allergy status to narcotic agent

== ENCOUNTER 2020-04-08 12:09 | Emergency (ER) | payer OTHER ==
[~2020-04-08] VITALS: Ht 170.2 cm; Wt 108.9 kg
[2020-04-08 12:41] LABS: HEMATOCRIT 42.4 % (37.0-47.0); HEMOGLOBIN 13.7 gm/dL (12.0-15.0); MCH 27.4 pg (26.0-34.0); MCHC 32.4 g/dL (28.0-37.0); MCV 84.5 fL (80.0-100.0); RBC 5.01 mil/uL (4.20-5.00); RDW 16.2 % (10.5-14.5); WBC 10.8 thou/uL (4.0-11.0)
[2020-04-08 12:47] LABS: CREATININE 1.1 mg/dL (0.6-1.0); POTASSIUM 4.5 mmol/L (3.5-5.1)
[2020-04-08 14:30] VITALS: BP 119/79
== END 2020-04-08 14:31 | disposition home or self-care (01) ==
LOC: ER 12:09
PROVIDERS: Physician Assistant
DX: S09.90XA Unspecified injury of head, initial encounter (principal); M54.2 Cervicalgia; M25.561 Pain in right knee; E04.1 Nontoxic single thyroid nodule; R42 Dizziness and giddiness; Z86.73 Personal history of transient ischemic attack (TIA), and cerebral infarction without residual deficits; E11.9 Type 2 diabetes mellitus without complications; I10 Essential (primary) hypertension; I48.91 Unspecified atrial fibrillation; M17.11 Unilateral primary osteoarthritis, right knee; G62.9 Polyneuropathy, unspecified; Z87.442 Personal history of urinary calculi; Z79.899 Other long term (current) drug therapy; Z88.5 Allergy status to narcotic agent; W01.198A Fall on same level from slipping, tripping and stumbling with subsequent striking against other object, initial encounter; Y93.89 Activity, other specified; Y92.89 Other specified places as the place of occurrence of the external cause; Y99.8 Other external cause status

== ENCOUNTER → 2020-04-17 | Outpatient (CLI) | payer OTHER | LOC: ULTRA 12:20 | PROVIDERS: ATTEND Family Medicine | DX: E04.2 Nontoxic multinodular goiter (principal); R59.0 Localized enlarged lymph nodes ==

== ENCOUNTER → 2020-06-04 | Outpatient (CLI) | payer OTHER | LOC: SJCVCIMAG 10:15 | PROVIDERS: ATTEND Internal Medicine Cardiovascular Disease | DX: I07.1 Rheumatic tricuspid insufficiency (principal); I11.9 Hypertensive heart disease without heart failure; R94.31 Abnormal electrocardiogram [ECG] [EKG]; I48.0 Paroxysmal atrial fibrillation; E78.00 Pure hypercholesterolemia, unspecified; Z79.899 Other long term (current) drug therapy ==

== ENCOUNTER → 2020-07-09 | Outpatient (CLI) | payer OTHER | LOC: SJCVC 13:26 | PROVIDERS: ATTEND Internal Medicine Cardiovascular Disease | DX: I48.21 Permanent atrial fibrillation (principal); R94.31 Abnormal electrocardiogram [ECG] [EKG]; I48.0 Paroxysmal atrial fibrillation; I10 Essential (primary) hypertension; E11.9 Type 2 diabetes mellitus without complications; E03.9 Hypothyroidism, unspecified; E78.5 Hyperlipidemia, unspecified; M19.90 Unspecified osteoarthritis, unspecified site; Z79.899 Other long term (current) drug therapy; Z86.73 Personal history of transient ischemic attack (TIA), and cerebral infarction without residual deficits ==

== ENCOUNTER → 2020-07-18 | Outpatient (CLI) | payer OTHER | LOC: LAB 07-17 08:22 | PROVIDERS: ATTEND Internal Medicine Cardiovascular Disease | DX: Z01.812 Encounter for preprocedural laboratory examination (principal); Z20.822 Contact with and (suspected) exposure to COVID-19 ==

== ENCOUNTER 2020-07-22 07:13 | Emergency (ER) | payer OTHER ==
[~2020-07-22] VITALS: Ht 170.2 cm; Wt 108.9 kg
[2020-07-22 08:39] VITALS: BP 113/94
[2020-07-22] MEDS ORDERED: ELIQUIS5 MG PO (15:51)
[2020-07-22] MEDS ORDERED: MINOCYCLINE HC100 M2 PO (15:51)
[2020-07-23] MEDS ORDERED: ELIQUIS5 MG PO (08:25)
== END 2020-07-22 08:40 | disposition home or self-care (01) ==
LOC: ER 07:13
DX: S71.112A Laceration without foreign body, left thigh, initial encounter (principal); I10 Essential (primary) hypertension; I48.91 Unspecified atrial fibrillation; E78.5 Hyperlipidemia, unspecified; E11.40 Type 2 diabetes mellitus with diabetic neuropathy, unspecified; M17.11 Unilateral primary osteoarthritis, right knee; Z86.73 Personal history of transient ischemic attack (TIA), and cerebral infarction without residual deficits; Z79.899 Other long term (current) drug therapy; Z79.4 Long term (current) use of insulin; Z88.5 Allergy status to narcotic agent; W45.8XXA Other foreign body or object entering through skin, initial encounter; Y93.89 Activity, other specified; Y92.89 Other specified places as the place of occurrence of the external cause; Y99.8 Other external cause status

== ENCOUNTER 2020-07-22 08:26 | Observation (INO) | payer OTHER ==
[~2020-07-22] VITALS: Ht 170.2 cm; Wt 112.9 kg
[2020-07-22 07:54] VITALS: BP 121/83
[2020-07-22 08:54] LABS: ABSOLUTE NEUTROPHILS 5.2 thou/uL (1.4-8.2); BASOPHILS 0.6 % (0.0-2.0); EOSINOPHILS 3.5 % (0.0-3.0); HEMATOCRIT 42.2 % (37.0-47.0); HEMOGLOBIN 13.3 gm/dL (12.0-15.0); LYMPHOCYTES 30.6 % (24.0-44.0); MCH 25.8 pg (26.0-34.0); MCHC 31.4 g/dL (28.0-37.0); MCV 82.2 fL (80.0-100.0); MONOCYTES 6.9 % (1.0-8.0); POLYS 58.4 % (36.0-66.0); RBC 5.13 mil/uL (4.20-5.00); RDW 16.8 % (10.5-14.5); WBC 8.8 thou/uL (4.0-11.0)
[2020-07-22 08:58] LABS: CALCIUM 10.4 mg/dL (8.5-10.1); CREATININE 1.4 mg/dL (0.6-1.0); POTASSIUM 4.4 mmol/L (3.5-5.1)
[2020-07-22 09:04] LABS: ALBUMIN 3.1 g/dL (3.4-5.0); TOTAL BILIRUBIN 0.4 mg/dL (0.2-1.0)
[2020-07-22 09:14] LABS: APTT 25.2 Seconds (24.5-32.8); PROTIME 10.5 Seconds (9.3-11.4)
[2020-07-22 11:35] VITALS: BP 119/85
[2020-07-22 11:50] VITALS: BP 119/85
[2020-07-22 12:11] LABS: ANISOCYTOSIS 1+; PLATELET COUNT 210 thou/uL (150-400)
[2020-07-22] MEDS ORDERED: ELIQUIS5 MG PO (15:51)
[2020-07-22] MEDS ORDERED: MINOCYCLINE HC100 M2 PO (15:51)
[2020-07-22 16:05] VITALS: BP 119/85
[2020-07-22 17:20] VITALS: BP 144/102
[2020-07-22 20:30] VITALS: BP 135/87
--- NOTE | 2020-07-22 20:32 | NUR ---
PT CARE ASSUMED AT 1135. ASSESSMENTS CHARTED. MEDICATIONS CHARTED. LAC IV. RFA IV. SINUS TACHYCARDIA. PACEMAKER PLACEMENT; LT SUBCLAVIAN. PT IN IMMOBILIZER X 3 DAYS. LT HAMMER LACERATION. ACHS.
[2020-07-23] VITALS (7 sets, daily range): BP systolic 131–140; BP diastolic 73–89
--- NOTE | 2020-07-23 08:10 | NUR ---
ASSESSMENTS CHARTED, MEDS CHARTED GIVEN. PATIENT IN IMMOBILIZER DURING SHIFT. DENIED PAIN. INCISION SITE LOOKS WELL APPROXIMATED. PATIENT WAS AFIB ON TELEMETRY. FALL PRECAUTIONS IN PLACE DURING SHIFT.
[2020-07-23] MEDS ORDERED: ELIQUIS5 MG PO (08:25)
--- NOTE | 2020-07-23 13:48 | NUR ---
PT CARE ASSUMED AT 0700. ASSESSMENTS CHARTED. MEDICATIONS CHARTED. LAC IV. RFA IV. DAY TWO PACEMAKER PLACEMENT. IMMOBILIZER REMOVED VIA DR JUAREZ. PT LEFT BEFORE WOUND CONSULT, HAS APPT WITH THEM IN ONE WEEK.
== END 2020-07-23 14:24 | disposition home or self-care (01) ==
LOC: CATH 08:26 → 2N 12:00 → CATH 12:42 → 2N 07-23 14:24
PROVIDERS: ADMIT Internal Medicine Cardiovascular Disease; ATTEND Internal Medicine Cardiovascular Disease
DX: I48.21 Permanent atrial fibrillation (principal); I10 Essential (primary) hypertension; E11.9 Type 2 diabetes mellitus without complications; E03.9 Hypothyroidism, unspecified; Z86.73 Personal history of transient ischemic attack (TIA), and cerebral infarction without residual deficits; Z20.828 Contact with and (suspected) exposure to other viral communicable diseases; Z98.890 Other specified postprocedural states; Z79.01 Long term (current) use of anticoagulants
CPT/HCPCS: 62110; 62900; 70005

== ENCOUNTER 2020-08-05 15:08 | Emergency (ER) | payer OTHER ==
[~2020-08-05] VITALS: Ht 170.2 cm; Wt 110.7 kg
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
[~2020-08-05 15:08] MED LIST changes: +MINOCYCLINE HC100 M2 PO
[2020-08-05 15:39] LABS: ABSOLUTE NEUTROPHILS 7.3 thou/uL (1.4-8.2); BASOPHILS 0.5 % (0.0-2.0); EOSINOPHILS 1.7 % (0.0-3.0); HEMATOCRIT 41.7 % (37.0-47.0); LYMPHOCYTES 23.9 % (24.0-44.0); MCH 25.8 pg (26.0-34.0); MCHC 31.3 g/dL (28.0-37.0); MCV 82.4 fL (80.0-100.0); MONOCYTES 5.3 % (1.0-8.0); POLYS 68.6 % (36.0-66.0); RBC 5.06 mil/uL (4.20-5.00); WBC 10.7 thou/uL (4.0-11.0)
[2020-08-05 15:48] LABS: CALCIUM 10.5 mg/dL (8.5-10.1); CREATININE 1.5 mg/dL (0.6-1.0); POTASSIUM 4.6 mmol/L (3.5-5.1)
[2020-08-05 15:53] LABS: TOTAL BILIRUBIN 0.2 mg/dL (0.2-1.0); TOTAL PROTEIN 7.8 g/dL (6.4-8.2)
--- NOTE | 2020-08-05 16:24 | EKG ---
[place] [address] [address] [employer] [place] [address] ELECTROCARDIOGRAM REPORT Name: GRACIELA NUÑEZ Room #: REG [facility]#: [id number] Admission: 08/05/20 Attend Phys: Discharge: Date of : 56 Report #: [id number] [facility] ED Test Date: 2020-08-05 Test Time: 16:14:11 Pat Name: GRACIELA NUÑEZ Department: Room: Gender: F Tab Cutter: viviana : 1960 Requested By: Josue Mcqueen Order Number: [id number] MD: Ector Gallegos Measurements Intervals [place] Rate: 77 P: IN: QRS: -27 QRSD: 127 T: 35 QT: 381 QTc: 432 Interpretive Statements Atrial fibrillation Left bundle branch block Compared to ECG 02/01/2020 16:36:31 Left bundle-branch block now present Poor R-wave progression no longer present Early repolarization no longer present Electronically Signed On 08-05-2020 16:24:08 DIRECTOR OF HOUSING AND ENERGY SERVICES by Ector Gallegos [email or web address] <ELECTRONICALLY SIGNED> By: Ector Gallegos MD, [facility] 08/05/20 1624 1614 1614 Ector Gallegos MD, FACC /EPI
[2020-08-05 16:45] LABS: PLATELET COUNT 251 thou/uL (150-400); PLATELET ESTIMATE NORMAL
[2020-08-05 17:16] LABS: URINE BILIRUBIN NEGATIVE (Negative); URINE BLOOD 2+ (Negative); URINE CLARITY CLEAR; URINE COLOR YELLOW; URINE GLUCOSE-RANDOM* NEGATIVE (Negative); URINE KETONES NEGATIVE (Negative); URINE LEUKOCYTES-REFLEX NEGATIVE (Negative); URINE NITRITE-REFLEX NEGATIVE (Negative); URINE PROTEIN (DIPSTICK) NEGATIVE (Negative); URINE UROBILINOGEN 0.2 E.U./dl (0.2-1.0)
[2020-08-05 17:27] LABS: SQUAMOUS 0-3 Few /LPF (0-3); URINE WBC-REFLEX None Seen /HPF (0-5)
[2020-08-05 17:28] LABS: BACTERIA-REFLEX 1-9 Few /HPF (None Seen); CASTS None Seen /LPF (None Seen); CRYSTALS None Seen /LPF (None Seen)
[2020-08-05 19:23] VITALS: BP 197/101
== END 2020-08-05 19:25 | disposition home or self-care (01) ==
LOC: ER 15:08
PROVIDERS: Emergency Medicine
DX: R53.1 Weakness (principal); R47.81 Slurred speech; R29.810 Facial weakness; E11.40 Type 2 diabetes mellitus with diabetic neuropathy, unspecified; I48.91 Unspecified atrial fibrillation; Z88.5 Allergy status to narcotic agent; Z79.899 Other long term (current) drug therapy; Z87.442 Personal history of urinary calculi; Z86.73 Personal history of transient ischemic attack (TIA), and cerebral infarction without residual deficits

== ENCOUNTER 2020-08-23 14:00 | Inpatient (IN) | payer OTHER ==
[~2020-08-23] VITALS: Ht 170.2 cm; Wt 127.5 kg
[2020-08-23 14:01] VITALS: BP 121/100
--- NOTE | 2020-08-23 14:08 | NUR ---
BED SCALE WEIGHT 281.3LBS
[2020-08-23] MEDS ORDERED: NEURONTIN 300M300 M2 PO (14:50)
[2020-08-23 14:51] LABS: ABSOLUTE NEUTROPHILS 9.3 thou/uL (1.4-8.2); BASOPHILS 0.3 % (0.0-2.0); EOSINOPHILS 0.2 % (0.0-3.0); HEMATOCRIT 40.3 % (37.0-47.0); HEMOGLOBIN 12.7 gm/dL (12.0-15.0); LYMPHOCYTES 14.9 % (24.0-44.0); MCH 25.4 pg (26.0-34.0); MCHC 31.5 g/dL (28.0-37.0); MCV 80.5 fL (80.0-100.0); MONOCYTES 6.4 % (1.0-8.0); PLATELET COUNT 240 thou/uL (150-400); POLYS 78.2 % (36.0-66.0); RBC 5.01 mil/uL (4.20-5.00); RDW 16.3 % (10.5-14.5); WBC 11.9 thou/uL (4.0-11.0)
[2020-08-23 14:53] LABS: ANION GAP 8 mmol/L (7-16); BUN 17 mg/dL (7-18); CALCIUM 9.9 mg/dL (8.5-10.1); CHLORIDE 96 mmol/L (98-107); CO2 30 mmol/L (21-32); CREATININE 1.8 mg/dL (0.6-1.0); GLUCOSE 399 mg/dL (74-106); POTASSIUM 4.9 mmol/L (3.5-5.1); SODIUM 134 mmol/L (136-145)
[2020-08-23] MEDS ORDERED: HYDRALAZINE 10M10 MG PO (14:53)
[2020-08-23 15:03] LABS: ALBUMIN 2.7 g/dL (3.4-5.0); SGOT 16 U/L (15-37); SGPT 17 U/L (30-65); TOTAL BILIRUBIN 0.4 mg/dL (0.2-1.0); TOTAL PROTEIN 7.8 g/dL (6.4-8.2); TROPONIN-I <0.06 ng/mL (<0.06)
[2020-08-23 15:13] LABS: APTT 29.1 Seconds (24.5-32.8); PROTIME 11.1 Seconds (9.3-11.4)
[2020-08-23 16:48] LABS: URINE BILIRUBIN NEGATIVE (Negative); URINE BLOOD 3+ (Negative); URINE COLOR YELLOW; URINE GLUCOSE-RANDOM* 1+ (Negative); URINE KETONES NEGATIVE (Negative); URINE PROTEIN (DIPSTICK) 3+ (Negative); URINE SPECIFIC GRAVITY >= 1.030 (1.005-1.035); URINE UROBILINOGEN 0.2 E.U./dl (0.2-1.0)
[2020-08-23 16:50] LABS: URINE CLARITY CLOUDY; URINE LEUKOCYTES-REFLEX 3+ (Negative); URINE NITRITE-REFLEX POSITIVE (Negative)
[2020-08-23 16:51] LABS: BACTERIA-REFLEX >30 Many /HPF (None Seen); SQUAMOUS 0-3 Few /LPF (0-3); URINE WBC-REFLEX >25 Many /HPF (0-5)
[2020-08-23 16:52] LABS: CASTS None Seen /LPF (None Seen); CRYSTALS None Seen /LPF (None Seen)
[2020-08-23 16:54] LABS: AMP/METHAMP Negative (Negative); BARBITURATES Negative (Negative); BENZODIAZEPINES Negative (Negative); COCAINE Negative (Negative); METHADONE Negative (Negative); OPIATES Negative (Negative); PCP Negative (Negative)
[2020-08-23 19:54] VITALS: BP 141/92
[2020-08-23 20:25] VITALS: BP 124/79
[2020-08-23 21:25] VITALS: BP 131/95
[2020-08-24 00:40] VITALS: BP 142/103
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
[2020-08-24 09:33] VITALS: BP 141/81
--- NOTE | 2020-08-24 10:26 | EKG ---
[address] [place] [address] ELECTROCARDIOGRAM REPORT Name: GRACIELA NUÑEZ Room #: 445-P ADM IN ..#: [id number] Admission: 08/23/20 Attend Phys: Tramaine Harp Discharge: Date of : 56 Report #: [id number] [facility] ED Test Date: 2020-08-23 Test Time: 15:26:50 Pat Name: GRACIELA NUÑEZ Department: Room: [facility] Gender: F Food Safety Officer: JCDULCE : 1960 Requested By: Avani Crespo Order Number: [id number] MD: Tayo Bundy Measurements Intervals [place] Rate: 99 P: ME: QRS: -16 QRSD: 109 T: 40 QT: 326 QTc: 419 Interpretive Statements Atrial fibrillation Anterior infarct, old Compared to ECG 08/05/2020 16:14:11 Myocardial infarct finding now present Left bundle-branch block no longer present Electronically Signed On 08-24-2020 10:26:26 [employer] by Tayo Bundy [email or web address] <ELECTRONICALLY SIGNED> By: Tayo Bundy MD 08/24/20 1026 25 25 Tayo Bundy MD /MIRIAM
--- NOTE | 2020-08-24 14:29 | NUR ---
Alert and orientated X3. Calm, cooperative and compliant. Pupils equal. Leans to right in both chair and bed. Breath sounds clear, O2 sats 93% on RA. T 100.1 orally with RR of 24-28, no nasal flaring or retractions noted. Regular HR auscultated, slightly tachycardic 105. Tylenol given, HR decreased to 95. Color pink with brisk capillary refill and palpable peripheral pulses. Edema in lower legs. Incontinent of very large amt yellow urine. Active bowel sounds over large, soft, rounded abdomen.
[2020-08-24 18:31] VITALS: BP 110/74
[2020-08-24 20:09] VITALS: BP 114/76
--- NOTE | 2020-08-25 03:43 | NUR ---
PT LYING IN BED. DENIES NEED FOR PAIN MEDICATION. EXT FEMALE CATHETER IN PLACE. RESTING COMFORTABLY. NO NEEDS VOICED. CALL LIGHT WITHIN REACH. FREQUENT OBSERVATION.
[2020-08-25 06:42] LABS: ALBUMIN 2.2 g/dL (3.4-5.0); CALCIUM 9.4 mg/dL (8.5-10.1); CREATININE 1.6 mg/dL (0.6-1.0); PHOSPHORUS 2.9 mg/dL (2.5-4.9); POTASSIUM 3.8 mmol/L (3.5-5.1)
[2020-08-25 07:10] VITALS: BP 101/70
[2020-08-25] MEDS ORDERED: CEFUROXIME500 MG PO (10:03)
[2020-08-25 16:30] VITALS: BP 112/79
--- NOTE | 2020-08-25 16:30 | NUR ---
PT CARE ASSUMED AT 0700. A&Ox4. PT IN BED MOST OF THE DAY. IV PATENT WITH NO REDNESS OR EDEMA. FREQUENT OBSERVATION. ACHS. NPO AT MIDNIGHT TODAY. WILL HAVE ABLATION TOMORROW AND THEN DISCHARGE AFTER PER DR. ROCK. EXTERNAL CATHETER IN PLACE. INCONTINENT TO BLADDER. FALL RISK IN PLACE. CALL LIGHT IN REACH. WILL CONTINUE TO MONITOR.
[2020-08-25 19:01] VITALS: BP 121/72
[2020-08-26] VITALS (11 sets, daily range): BP systolic 120–147; BP diastolic 62–88
--- NOTE | 2020-08-26 04:21 | NUR ---
PT LYING IN BED. DENIES PAIN. EXTERNAL FEMALE CATH IN PLACE. PLAN FOR ABLATION 08/26. RESTING COMFORTABLY. NO NEEDS VOICED. CALL LIGHT WITHIN REACH. FREQUENT OBSERVATION.
[2020-08-26 05:26] LABS: ABSOLUTE NEUTROPHILS 5.7 thou/uL (1.4-8.2); BASOPHILS 0.3 % (0.0-2.0); HEMATOCRIT 36.1 % (37.0-47.0); HEMOGLOBIN 11.3 gm/dL (12.0-15.0); LYMPHOCYTES 31.1 % (24.0-44.0); MCH 25.3 pg (26.0-34.0); MCHC 31.3 g/dL (28.0-37.0); MCV 80.8 fL (80.0-100.0); MONOCYTES 5.8 % (1.0-8.0); PLATELET COUNT 221 thou/uL (150-400); POLYS 60.8 % (36.0-66.0); RBC 4.46 mil/uL (4.20-5.00); RDW 16.5 % (10.5-14.5); WBC 9.3 thou/uL (4.0-11.0)
[2020-08-26 05:42] LABS: CALCIUM 9.2 mg/dL (8.5-10.1); CREATININE 1.4 mg/dL (0.6-1.0); POTASSIUM 3.9 mmol/L (3.5-5.1)
[2020-08-26 07:49] LABS: ALBUMIN 2.3 g/dL (3.4-5.0); TOTAL BILIRUBIN 0.1 mg/dL (0.2-1.0)
[2020-08-26 07:50] LABS: APTT 25.3 Seconds (24.5-32.8); PROTIME 10.3 Seconds (9.3-11.4)
--- NOTE | 2020-08-26 11:17 | NUR ---
ASSESSMENT: CM REVIEWED CHART AND ATTEMPTED TO MEET WITH PATIENT THIS AM BUT SHE IS OUT OF THE ROOM FOR AN ABLATION PROCEDURE. CM ATTEMPTED TO CONTACT PATIENTS FAMILY PER RECORDS SHE LIVES AT HOME WITH THEM. CM SPOKE WITH PATIENTS SON KALIA WHO SHE LIVES WITH ALONG WITH TWO OTHER ADULT CHILDREN. HE REPORTS THEY LIVE IN A SINGLE STORY HOME WITH 2 STEPS AND A HANDRAIL TO ENTER. HE REPORTS SHE USES A WALKER FOR AMBULATION AT HOME. PT IS NORMALLY INDEPENDENT WITH ADLS HE STATES AND HAS A SHOWER BENCH. PT HAS HAD [facility] IN THE PAST AND HE DENIES SHE HAS BEEN TO A SNF/POST ACUTE CARE STAY. CM DISCUSSED RECOMMENDATIONS FOR SNF AND HE REPORTS SHE IS VERY STUBBORN SO DOUBT SHE WILL AGREE BUT WE CAN SEE. CM EMAILED HIM A SNF LIST. PT IS OUT OF ROOM FOR PROCEDURE AND THEN BEING TRANSFERED TO ANOTHER UNIT SO CM WILL FOLLOW TO SEE IF SHE IS AGREEABLE. ORDERS ARE IN FOR SNF, AWAITING TO SPEAK WITH PATIENT POST PROCEDURE.
--- NOTE | 2020-08-26 12:45 | NUR ---
PT FROM [facility] EXAM[facility]ER S/P ABLATION AROUND 1230. PT ORIENTED TO ROOM AND UNIT, BED LOW AND LOCKED, SIDE RAILS UPX3, CALL LIGHTIN REACH, TELE APPLIED. WILL CONTINUE TO ASSESS.
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
[2020-08-27 03:46] VITALS: BP 123/64
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
[2020-08-27 07:20] VITALS: BP 142/87
[2020-08-27 09:58] VITALS: BP 142/87
--- NOTE | 2020-08-27 11:23 | NUR ---
on-going assessment: CM REVIEWED CHART AND SPOKE WITH PATIENT. PT IS POSSIBLE DISCHARGE TODAY PENDING CLEARANCE FROM CARDIOLOGY. CM AGAIN DISCUSSED SNF AND BENEFITS/RECOMMENDATION FOR SNF AT DISCHARGE. PT IS ADAMENT THAT SHE WILL NOT GO TO SNF AND WANTS TO RETURN HOME WITH HOME HEALTH SERVICES. PT REPORTS SHE LIVES WITH HER ADULT WHO CAN ASSIST HER AND SHE ALSO HAS A BEDSIDE COMMODE, WALKER, WHEELCHAIR IF NEEDED. CM SPOKE WITH PATIENTS SON KALIA WHO REPORTS HIS MOTHER IS STUBBORN AND NOT SUPRISED SHE REFUSED SNF AND REPORT THEY ARE USED TO HELPING HER AND SOMEONE IS WITH HER AT ALL TIMES AT HOME. HE IS COMFORTABLE WITH HER COMING HOME. PTS SISTER IS SUPPOSED TO PROVIDE TRANSPORTATION AND SHE REPORTS THAT FAMILY WILL BE AT THE HOME TO HELP ASSIST HER OUT OF THE CAR WHEN SHE GETS THERE (PER SON KALIA). CM NOTIFIED [facility] OF DISCHARGE TODAY AND LEFT VM WITH MARLENA. RONALD ALSO FAXED D/C ORDERS TO [facility].
--- NOTE | 2020-08-27 11:44 | NUR ---
FAMILY WISHES PT TO HAVE SKIILLED NURSING FACILITY AT DISCHARGE HOWEVER PT REFUSES. I SPOKE WITH PT ABOUT BENEFIT OF SKILLED FACILTIY AND SHE STILL REFUSES. DISCONTINUE IV AND TELE AND WLL DISCHARGE TO HOME VIA PRIVATE VEHICLE.
--- NOTE | 2020-08-27 12:41 | NUR ---
PT DISCHARGE AT 1220 VIA WHEELCHAIR WITH NURSING AID.
--- NOTE | 2020-08-30 12:00 | HC ---
[facility] [place] [address] CONSULTATION Name: GRACIELA NUÑEZ Room #: 212-P [facility] IN ..#: [id number] Admission: 08/23/20 Attend Phys: Tramaine Deion Katiuska Discharge: 08/27/20 Date of : 56 Report #: [id number] THIS REPORT FOR: cc: Betty Morris MD, Nora P. MD Couchonnal, Luis F. MD ~ REASON FOR CONSULTATION: Atrial fibrillation. HISTORY OF PRESENT ILLNESS: The patient is well known to me. She has permanent AFib and she is status post recent single chamber pacemaker implantation with plans to have an AV node ablation. She was coming to get a COVID test on Wednesday, but was profoundly weak and therefore, she was brought to [facility] ER, was diagnosed with a urinary tract infection. She reports that she is feeling much better. She denies any chest pain, shortness of breath, PND, orthopnea, presyncope or syncope. She has no fevers or chills. Her blood cultures were negative. PAST MEDICAL HISTORY: As above. SOCIAL HISTORY: Does not smoke. FAMILY HISTORY: Noncontributory. ALLERGIES: CODEINE. MEDICATIONS: Have been reviewed and she has been on her Eliquis. PHYSICAL EXAMINATION: GENERAL: No acute distress. HEENT: Oropharynx clear. NECK: Supple, with no thyromegaly. HEART: Irregularly irregular with no murmurs, rubs or gallops. CHEST: Lungs are clear to auscultation bilaterally. ABDOMEN: Soft, nontender, nondistended. EXTREMITIES: No clubbing, cyanosis or edema. NEUROLOGIC: Cranial nerves 2-12 are intact. PSYCHIATRIC: She is appropriate. Her incision is healing nicely. LABORATORY DATA: White count was 11, hemoglobin 12, and platelets 240. Coags: INR 1. Chemistry: Sodium 138, potassium 3.8, creatinine 1.6. Troponin was negative. Serology for COVID is pending. Her blood cultures were negative. ASSESSMENT: 1. Atrial fibrillation. 2. Urinary tract infection. 3. Prior cerebrovascular accident. [facility] [address] [place] [address] CONSULTATION Name: GRACIELA NUÑEZ Jamey Room #: 212-P [facility] IN [facility].#: [id number] Admission: 08/23/20 Attend Phys: Tramaine Harp Discharge: 08/27/20 Date of : 56 Report #: [id number] SUMMARY: The patient is a 60-year-old who has recovered from her urinary tract infection. Her blood cultures were negative. We will proceed with AV node ablation tomorrow. We will hold a dose of Eliquis tonight. She can be discharged tomorrow after the procedure. <ELECTRONICALLY SIGNED> By: Tayo Bundy MD 08/30/20 1200 1122 1226 Tayo Bundy MD /nt
--- NOTE | 2020-08-30 12:00 | P ---
[facility] [place] [address] PROCEDURE REPORT Name: GRACIELA NUÑEZ Room #: 212-P [facility] IN M..#: [id number] Admission: 08/23/20 Attend Phys: Tramaine Deion Katiuska Discharge: 08/27/20 Date of : 56 Report #: [id number] THIS REPORT FOR: cc: Betty Morris MD, Nora P. MD Couchonnal, Luis F. MD ~ ATRIOVENTRICULAR NODE ABLATION PREOPERATIVE DIAGNOSIS: Permanent atrial fibrillation. POSTOPERATIVE DIAGNOSIS: Permanent atrial fibrillation. HISTORY: The patient is a 60-year-old female with a history of AFib with rapid ventricular response, who is status post pacemaker implantation. She is here for her AV node ablation. ANESTHESIA: The patient underwent MAC anesthesia with no anesthesia related complications. PROCEDURES PERFORMED: 1. AV node ablation, CPT code 75983. 2. Pacemaker reprogramming, CPT code 12614. 3. Post-ablation, pacemaker reprogramming, CPT code 35653. DESCRIPTION OF PROCEDURE: The patient underwent informed consent. We discussed the details of the procedure including the risks, which include but not limited to bleeding and infection. She understood these risks and is willing to proceed. The patient was brought to EP laboratory in fasting and sedated state, prepped and draped in a sterile fashion. Prior to the device, we reprogrammed her pacemaker to the VVI 40 mode. Next, I obtained access to the right femoral vein x 1, placing an 8-Estonian short sheath and then upsized to a SR0 sheath and placed an 8 mm ablation catheter into the right atrium. I found a nice signal with a His bundle noted. Ablation was performed and after approximately 2-3 minutes of ablation, there was evidence of complete heart block. Ablation was performed at 70 trevino and 60 degrees. We monitored for a period of 20 minutes and there was no return of conduction. The pacemaker was re-interrogated and reprogrammed to the VVIR 80 mode. The patient's catheters and sheaths were pulled. Hemostasis was obtained. The patient awoke neurologically and hemodynamically intact. No complications and no significant bleeding. CONCLUSIONS: [facility] [address] [place] [address] PROCEDURE REPORT Name: NUÑEZGRACIELA Room #: 212-P [facility] IN ..#: [id number] Admission: 08/23/20 Attend Phys: Tramaine Harp Discharge: 08/27/20 Date of : 56 Report #: [id number] 1. Successful AV node ablation. 2. Successful pre and post-ablation, pacemaker reprogramming. <ELECTRONICALLY SIGNED> By: Tayo Bundy MD 08/30/20 1200 1313 1712 Tayo Bundy MD /nt
== END 2020-08-27 13:30 | disposition home health service (06) | DRG 273 ==
LOC: ER 14:00 → 4S 18:05 → EROBS 18:05 → 2N 18:05 → 4S 20:36 → 2N 08-26 11:41
PROVIDERS: Emergency Medicine; Internal Medicine Cardiovascular Disease; ADMIT Hospitalist; ATTEND Hospitalist
DX: I48.21 Permanent atrial fibrillation (principal); G93.41 Metabolic encephalopathy; R65.11 Systemic inflammatory response syndrome (SIRS) of non-infectious origin with acute organ dysfunction; N39.0 Urinary tract infection, site not specified; I10 Essential (primary) hypertension; E89.0 Postprocedural hypothyroidism; E78.5 Hyperlipidemia, unspecified; M17.11 Unilateral primary osteoarthritis, right knee; E11.40 Type 2 diabetes mellitus with diabetic neuropathy, unspecified; F03.90 Unspecified dementia, unspecified severity, without behavioral disturbance, psychotic disturbance, mood disturbance, and anxiety; Z20.822 Contact with and (suspected) exposure to COVID-19; Z79.01 Long term (current) use of anticoagulants; Z86.73 Personal history of transient ischemic attack (TIA), and cerebral infarction without residual deficits; Z87.442 Personal history of urinary calculi; Z88.6 Allergy status to analgesic agent; Z79.899 Other long term (current) drug therapy
CPT/HCPCS: 10081; 10195; 62110; 62900; 70005

== ENCOUNTER 2020-11-07 12:28 | Inpatient (IN) | payer OTHER ==
[~2020-11-07] VITALS: Ht 170.2 cm; Wt 97.5 kg
--- NOTE | ~2020-11-07 | HC ---
[facility] [place] [address] CONSULTATION Name: GRACIELA NUÑEZ Room #: 357-P ADM IN .R.#: [id number] Admission: 11/07/20 Attend Phys: Moo Guidry MD Discharge: Date of : 56 Report #: [id number] THIS REPORT FOR: cc: Betty Morris MD, Nora P. MD Khosla, Parveen K. MD ~ DOC #: [id number] Aristides Trujillo MD DATE OF SERVICE: 11/07/2020 HISTORY OF PRESENT ILLNESS: This is a 60-year-old female patient who is an extremely poor historian. She says she lives with her son and daughter. I tried to call the patient's daughter on the number, which is in the computer and I could not reach her. She was admitted here last year and in fact, I saw her and I reviewed those notes. I talked to the Emergency Room physician who admitted this patient and reviewed their notes. The history I get is that this patient has weakness for about 3 days. She told the admitting practitioner that the weakness is generalized and to the ER doctor that it is on the right side. Apparently, they have talked to the family and the family also does not provide a good history. When I talked to the Emergency Room physician, my recommendation was to proceed with an MRI and MRA in this patient as the GFR was very poor, but looks like they canceled that because she has a pacemaker and she does not know, if it is compatible with MRI or not. She does not know whether the weakness is unilateral or bilateral. Reviewing the records from the last time, we have the same problem trying to determine, but whether the weakness was unilateral or bilateral, but she clearly had some punctate stroke on the right side. Since then, she has a pacemaker put in. She is supposed to be on chronic anticoagulation and there was one time it was not certain if she was taking appropriate dose or not. Presently, we are trying to determine if she is taking that appropriately or not. REVIEW OF SYSTEMS: A 14-point review of system was carried out. This is pretty extensive. She does have a history of atrial fibrillation. She has documented strokes in the past. She has abnormal kidney function. It looks like she has a urinary tract infection now. She had workup in the past. We checked cardiolipin antibody. I did not check for hypercoagulable profile because she was on anticoagulation indefinitely. Her sed rate was borderline. Her blood sugar is high. She has chronic lymphedema and both lower extremities and I am not sure how much mobility she has. She has history of kidney stone and hypertension as I understand from her, that was her relevant 14-point review of system. PAST MEDICAL HISTORY: Positive for stroke. FAMILY HISTORY: Negative for early age stroke. [facility] [address] [place] [address] CONSULTATION Name: GRACIELA NUÑEZ Room #: 357-P [facility] IN M.R.#: [id number] Admission: 11/07/20 Attend Phys: Moo Guidry MD Discharge: Date of : 56 Report #: [id number] SOCIAL HISTORY: She says she lives with a son and a daughter and I am unable to reach them. PHYSICAL EXAMINATION: Her examination indicate she is alert. She is responsive. She can follow simple commands. She can tell me what month it is, but she could not tell me what date it is. Her speech looks slurred, but I do not know how long that is going on. It is going on at least for 3 days, but probably longer than that. Memory is diminished. Cranial nerve examination II-XII indicates that she does appear to have right facial palsy. I am not sure about the visual field because she does not do very well on the left side multiple times. Strength is concerned. She moves both upper extremities against gravity. Strength is about 4 x 5. Lower extremities: She does not pickle pumper her legs proximally, but distally her strength looks pretty preserved and dorsiflexion and plantar flexion of both feet. Initially, she did not understand the instructions for doing the position sense, but when she understood the instructions, she did it reasonably well. She says she can feel in both lower extremities. She has pretty significant swelling there. The tone is difficult to tell. I could not elicit the reflexes in the lower extremities, but can do it in the upper extremity. It is difficult to tell about cerebellar sign. She could not cooperate enough for the fundus examination. She is a morbidly obese lady. Her hearing and vision looks adequate. She has no thyroid mass or carotid bruit. CARDIAC: She has a history of atrial fibrillation. No respiratory difficulty was noticed. VITAL SIGNS: Blood pressure is 151/76, respirations 18, pulse is 80. LABORATORY DATA: Indicate a white count of 11.7 and finding consistent with urinary tract infection. Her diabetes appears to be uncontrolled. Because of the blood sugar is high. CT scan of the head was reviewed and that showed no acute process. ASSESSMENT AND PLAN: 1. It appears that the patient may have had another stroke since last time, but I do not know what the baseline is and I cannot reach anybody to see what her compliance with medication, especially Eliquis is. I had suggested considering a GERRY to see if there is a plaque in the aorta or any other abnormality which can cause the problem and she may have to be on a combination of Eliquis and aspirin. I will suggest consulting Cardiology to see if the pacemaker is compatible with MRI and to see if there is need to do a GERRY, especially because of her size. 2. She has chronic leg weakness and she had MRI of the whole spine in the past and there was no abnormality and I had suggested that she goes to [facility] to rule out some unusual pathology like a dural AVM, etc. She can do that as an outpatient. Because that problem appeared to be chronic. [facility] [address] [place] [address] CONSULTATION Name: GRACIELA NUÑEZ Room #: 357-P [facility] IN .R.#: [id number] Admission: 11/07/20 Attend Phys: Moo Guidry MD Discharge: Date of : 56 Report #: [id number] 3. She does appear to have a UTI and that may have aggravated the problems. 4. I will get a carotid Doppler done in this patient today. 5. I will not do a CT angio because the symptoms are more than three days' duration and her GFR is only 35. Risk-benefit ratio does not justify doing it in my view. Dr. Goel will follow up this patient with you from tomorrow and hopefully we can reach the family and we can reevaluate her after she is evaluated by physical and occupational therapy and see how she does. Thank you very much for allowing me to share in the management of this patient. MD YUNG Segovia/CHATA By: [id number] Aristides Trujillo MD /nt
[~2020-11-07 12:28] MED LIST changes: +NEURONTIN 300M300 M2 PO
[2020-11-07 12:30] VITALS: BP 157/89
[2020-11-07 13:04] LABS: ABSOLUTE NEUTROPHILS 8.7 thou/uL (1.4-8.2); BASOPHILS 0.5 % (0.0-2.0); EOSINOPHILS 0.5 % (0.0-3.0); HEMATOCRIT 43.3 % (37.0-47.0); LYMPHOCYTES 16.4 % (24.0-44.0); MCH 25.4 pg (26.0-34.0); MCHC 32.4 g/dL (28.0-37.0); MCV 78.5 fL (80.0-100.0); MONOCYTES 8.2 % (1.0-8.0); PLATELET COUNT 221 thou/uL (150-400); POLYS 74.4 % (36.0-66.0); RBC 5.51 mil/uL (4.20-5.00); WBC 11.7 thou/uL (4.0-11.0)
[2020-11-07 13:10] LABS: ANION GAP 12 mmol/L (7-16); BUN 13 mg/dL (7-18); CALCIUM 9.8 mg/dL (8.5-10.1); CHLORIDE 100 mmol/L (98-107); CO2 25 mmol/L (21-32); CREATININE 1.5 mg/dL (0.6-1.0); GLUCOSE 239 mg/dL (74-106); POTASSIUM 4.5 mmol/L (3.5-5.1); SODIUM 137 mmol/L (136-145)
[2020-11-07 13:18] LABS: APTT 29.2 Seconds (24.5-32.8); INR 1.07; PROTIME 11.6 Seconds (10.5-12.1)
[2020-11-07 13:20] LABS: ALBUMIN 2.8 g/dL (3.4-5.0); SGOT 16 U/L (15-37); SGPT 20 U/L (30-65); TOTAL BILIRUBIN 0.8 mg/dL (0.2-1.0); TOTAL PROTEIN 8.4 g/dL (6.4-8.2); TROPONIN-I <0.06 ng/mL (<0.06)
[2020-11-07 13:27] LABS: URINE BILIRUBIN NEGATIVE (Negative); URINE BLOOD 3+ (Negative); URINE GLUCOSE-RANDOM* NEGATIVE (Negative); URINE KETONES NEGATIVE (Negative); URINE LEUKOCYTES-REFLEX 3+ (Negative); URINE NITRITE-REFLEX POSITIVE (Negative); URINE PROTEIN (DIPSTICK) 2+ (Negative); URINE UROBILINOGEN 0.2 E.U./dl (0.2-1.0)
[2020-11-07 13:28] LABS: URINE CLARITY CLOUDY; URINE COLOR YELLOW
[2020-11-07 13:38] LABS: BACTERIA-REFLEX >30 Many /HPF (None Seen); CASTS None Seen /LPF (None Seen); CRYSTALS None Seen /LPF (None Seen); SQUAMOUS 0-3 Few /LPF (0-3); URINE RBC 3-10 Few /HPF (NONE SEEN); URINE WBC-REFLEX >25 Many /HPF (0-5)
--- NOTE | 2020-11-07 14:34 | EKG ---
[place] [address] [facility] [place] [address] ELECTROCARDIOGRAM REPORT Name: GRACIELA NUEÑZ Room #: 170-3 ADM IN ..#: [id number] Admission: 11/07/20 Attend Phys: Moo Guidry MD Discharge: Date of : 56 Report #: [id number] [facility] ED Test Date: 2020-11-07 Test Time: 12:44:52 Pat Name: GRACIELA NUÑEZ Department: Room: 170 Gender: F Ferry Pilot: chau : 1960 Requested By: Vera Hare Order Number: [id number] MD: Ector Gallegos Measurements Intervals [place] Rate: 82 P: [place]: QRS: -10 QRSD: 121 T: 193 QT: 552 QTc: 645 Interpretive Statements Afib/flut and V-paced complexes No further analysis attempted due to paced rhythm Compared to ECG 08/23/2020 15:26:50 Myocardial infarct finding no longer present Electronically Signed On 11-07-2020 14:34:45 CDT by Ector Gallegos [email or web address] <ELECTRONICALLY SIGNED> By: Ector Gallegos MD, [facility] 11/07/20 1434 1244 1244 Ector Gallegos MD, [facility] /EPI
[2020-11-07 14:46] VITALS: BP 151/76
--- NOTE | 2020-11-07 16:45 | NUR ---
PT ARRIVED TO UNIT AT 1530. PT REQUIRES 2+ ASSIST WITH TRANSFER TO BED AND TURNS. PT APPEARS UNGROOMED AND A STRONG BODY ODOR PRESENT. THIS RN AND CATTLE FARMER PROVIDED BED BATH FOR PT. PUREWICK APPLIED. PT HAS RED AREAS UNDER HER BREAST AND PANNUS. NO ACTIVE BLEEDING. PT BACKSIDE/COCCYX RED BUT BLANCHABLE. THIS RN ATTEMPTED TO CALL PT FAMILY: TERESA, KALIA, JEREMY, & NATALEE BUT UNABLE TO FIND ANYONE THAT CAN RECONCILE PT MEDS. TERESA VAUGHN: [phone] KALIA NUÑEZ: [phone] JEREMY DEAN: [phone] NATALEE NUÑEZ: [phone] NATALEE SUGGESTED WHEN HE WENT HOME LATER HE 'MAY BE ABLE TO FIND SOMETHING' ST HAS RECOMMENDED PUREED NECTAR. WEDGE PLACED ON R SIDE PT HAS LEAN TO RIGHT SIDE FROM PRIOR STROKE.
--- NOTE | 2020-11-07 17:40 | NUR ---
PER LUANA [place] TO DC SCD. PLEASE APPLY LOTION TO PT LEGS DAILY.
--- NOTE | 2020-11-07 18:28 | NUR ---
PT REFUSING TO EAT DINNER OR DRINK THICKENED LIQUIDS. PT STATES SHE IS "TOO TIRED TO EAT AND WOULD RATHER THAN DRINK THICKENED LIQUIDS"
[2020-11-07 19:30] VITALS: BP 162/83
[2020-11-08 03:29] VITALS: BP 149/73
[2020-11-08 04:49] LABS: CALCIUM 9.5 mg/dL (8.5-10.1); CREATININE 1.5 mg/dL (0.6-1.0); MAGNESIUM 1.8 mg/dL (1.8-2.4); POTASSIUM 4.4 mmol/L (3.5-5.1)
[2020-11-08 04:58] LABS: ABSOLUTE NEUTROPHILS 10.5 thou/uL (1.4-8.2); BASOPHILS 0.4 % (0.0-2.0); EOSINOPHILS 0.2 % (0.0-3.0); HEMATOCRIT 40.7 % (37.0-47.0); LYMPHOCYTES 12.3 % (24.0-44.0); MCH 24.9 pg (26.0-34.0); MCHC 31.8 g/dL (28.0-37.0); MCV 78.3 fL (80.0-100.0); MONOCYTES 6.6 % (1.0-8.0); PLATELET COUNT 210 thou/uL (150-400); POLYS 80.5 % (36.0-66.0); RDW 16.9 % (10.5-14.5)
--- NOTE | 2020-11-08 06:01 | NUR ---
PROGRESS PT AWAKE, ALERT, AND ORIENTED TO SELF. ORIENTED TO PLACE AND SITUATION TO SOME DEGREE BUT AT TIMES IS UNABLE TO VERBALIZE CORRECTLY. LUNGS CLEAR, ABDOMEN SOFT, OBESE WITH POSITIVE BS. PUREWICK CATHETER IN PLACE DRAING PURULENT URINE, URINE PUS COLORED AND THICK, FROM THINNER ORANGE COLORED URINE. ADEQUATE OUTPUT NOTED. PT'S PUPIL ON LEFT WITH BRISK REACTION TO LEFT PT BLIND ON RIGHT PUPIL ROUND EQUAL BUT NO REACTION TO LIGHT NOTED. LOWER EXTREMITIES WITH DRY FLAKY SKIN, 2 TO 3 + EDEMA NOTED WEAK PULSES PALPABLE, CAP REFILL UNDER 3 SECS. TOLERATING NECTAR THICK LIQUIDS WITH NO CHOKING NOTED, TOOK PILLS WHOLE IN APPLESAUCE WITHOUT DIFFICULTY. LOWER EXTREMETIES CLEANSED AND MOISTURIZED. JUNIOR AREA CLEANSED , PUREWICK REPLACED, ZYGUARD AND BARRIER CREAM APPLIED TO BUTTOCKS. REPOSITIONED Q2 HOURS. OLGA LIDIA INTACT READING PACED SR WITH RATES IN 80'S. TEMP ON 9.2 THEN 100.8 TYLENOL GIVEN.
[2020-11-08 07:24] VITALS: BP 142/68
--- NOTE | 2020-11-08 10:54 | NUR ---
Nutrition: Pt admit with UTI, weakness, encephalopathy. Received consult stating "difficulty eating". Pt sleeping this am and unable to awaken however noted ST follows for dysphagia/modified diet need. Prior thickened liquids which pt stated she "would rather than eat". ST has since liberalized to thin liquids, however pt slept through breakfast today. Glucerna is ordered daily. BMI 43, extreme class 3 obesity with no recent weight change per hx. Hx DM, BG 251, on SSI. Follow po trends but will consider low nutrition risk with interventions in place.
--- NOTE | 2020-11-08 14:29 | NUR ---
INITIAL ASSESSMENT: SW received consult for discharge planning. Reviewed chart and spoke with nursing and attending physician. Pt was admitted from home due to UTI/possible CVA. Neuro consulted. Therapy evals ordered to assist with recommmendations for discharge. DONTE met with pt at bedside. Introduced role of SW. Pt is alert/orientated and reports she lives at home with her children. Prior to admission, pt was requiring assistance with ADLs. Pt has a walker and w/c at home. 2 steps to enter the home. No steps inside. Pt has used [facility] in the past. Pt is not currently on service with . SW provided pt with in-network SNF list for review. Pt will review list over the weekend with her family. Will need insurance auth for post-acute placement. DONTE is following to assist as needed with discharge planning.
[2020-11-08 15:29] VITALS: BP 113/71
--- NOTE | 2020-11-08 18:23 | NUR ---
RN ASSUMED PT'S CARE AT 0700AM, PT IS SLEEPING AT MOST OF TIME, PT CAN OPEN EYES BY VOICE, PT CAN FOLLOW COMMANDS, PT'S VS ARE STABLE, BUT PT STILL HAS GENERAL WEAKNESS, PT IS GOING TO HAVE HEAD MRI AT NEXT WEDNESDAY, PT DENIES PAIN AND SOB BY THIS TIME.
[2020-11-08 19:39] VITALS: BP 122/77
[2020-11-09 05:22] VITALS: BP 146/71
--- NOTE | 2020-11-09 06:37 | NUR ---
EXTERNAL CATH IN PLACE, URINE OUTPUT LOW AT 200ML. URINE IS VERY LAYNE IN COLOR. LOW LOSS AIR PUMP INSTALLED AND IN WORKING. FOLLOWING POC.
[2020-11-09 07:34] VITALS: BP 119/75
--- NOTE | 2020-11-09 14:33 | NUR ---
CARE TAKEN OVER THIS AM, PT ALERT AND ORIENTED X3, FORGETFUL AT TIMES. PT DENIES ANY NUMBNESS AND TINGLING. ON ROOM AIR, NO SIGNS OF DISTRESS NOTED. GAVE PT A BATH. REPOSITION EVERY 2 HOURS. PT FAMILY UPDATED ABOUT POC. FALL PRECAUTIONS IN PLACE. WILL CONTINUE TO MONITOR.
[2020-11-09 15:59] VITALS: BP 146/80
[2020-11-09 19:30] VITALS: BP 119/68
[2020-11-10 03:40] VITALS: BP 112/62
[2020-11-10 05:30] LABS: HEMATOCRIT 39.6 % (37.0-47.0); HEMOGLOBIN 12.5 gm/dL (12.0-15.0); MCH 25.3 pg (26.0-34.0); MCHC 31.6 g/dL (28.0-37.0); RBC 4.95 mil/uL (4.20-5.00); RDW 17.1 % (10.5-14.5); WBC 10.9 thou/uL (4.0-11.0)
[2020-11-10 05:36] LABS: GLYCOHEMOGLOBIN (HGB A1C) 10.6 % (4.8-5.6)
[2020-11-10 05:45] LABS: CALCIUM 9.8 mg/dL (8.5-10.1); CREATININE 1.4 mg/dL (0.6-1.0); POTASSIUM 4.2 mmol/L (3.5-5.1)
--- NOTE | 2020-11-10 06:14 | NUR ---
PT MENTATION IS IMPROVING AND SHE CAN KEEP A CONVERSATION GOING. VSS, MINIMAL URINE OUTPUT. Q2 TURNS. PLACED INTERDRY BELOW PANNUS AND BREAST. PT HAS NO COMPLAINTS .
[2020-11-10 07:24] VITALS: BP 130/89
--- NOTE | 2020-11-10 13:20 | NUR ---
PT ALERT AND ORIENTED X4, MORE DROWSY TODAY BUT AROUABLE. ABLE TO FOLLOW VERBAL COMMANDS. CONTINES TO BE ON ROOM AIR. PLANNING FOR AN MRI TOMORROW. DENIES ANY NEEDS AT MOMENT. WILL CONTINUE TO MONITOR.
[2020-11-10 17:08] VITALS: BP 127/85
[2020-11-10 19:51] VITALS: BP 120/77
[2020-11-11 04:55] VITALS: BP 145/83
--- NOTE | 2020-11-11 06:23 | NUR ---
PT ALERT AND ORIENTED X4. FOLLOWS COMMANDS. ARMS ARE STILL MODERATELY WEAK. SHE CAN MOVE THREM TO HER FACE NOW. LEGS VERY WEAK. C/O PAIN TO LEGS X1 TONIGHT. MEDICATE WITH TYLENOL PO. SHE SLEPT MOST OF NIGHT. VSS NO S/S DISTRESS.
--- NOTE | 2020-11-11 07:18 | NUR ---
NOTIFIED DAY SHIFT NS THERE IS NOT A DR NOTE YET STATING CARDIOLOGY HAS SEEN PT REGARDING HER PACEMAKER SO THAT SHE CAN GO TO MRI. NOTIFIED HER THAT LAST DR NOTE BY NEUROLOGY STATED PACEMAKER NEEDED TO BE PUT IN SAFE MODE FOR MRI.
[2020-11-11 07:32] VITALS: BP 142/82
--- NOTE | 2020-11-11 11:28 | NUR ---
DONTE reviewed chart and spoke with nursing and attending physician. Pt to have MRI today. Cardiology cleared pt for MRI. Recommendation made for pt to go to post-acute care for continued rehab and medical mgmt prior to returning home. SW met with pt at bedside to discuss discharge plan. Pt states she wants to go home. SW discussed need for requiring max assist of 2 people. SW reviewed SNF list with pt. Pt states that she will agree to go to a SNF if she is able to talk with her father. SW discussed having a Face Time/Virtual visit with her Dad via tablet. Pt agreeable. Pt states she will review the SNF list with her sister, when her sister visits later today. DONTE updated attending physician. Will need insurance authorization for post-acute placement. DONTE is following to assist as needed with discharge planning.
[2020-11-11 15:52] VITALS: BP 142/83
[2020-11-11 19:45] VITALS: BP 117/77
--- NOTE | 2020-11-11 23:08 | NUR ---
PT ALERT AND ORIENTED X 4. VSS AFEBRILE. PT C/O OMER. MEDICATED WITH 2 TYLENOL. PRESENTLY SHE IS SLEEPING. NO S/S DISTRESS. BED DOWN . CALL LIGHT IN REACH. BED ALARM ON. NO S/S DISTRESS.
[2020-11-12 04:15] VITALS: BP 119/64
--- NOTE | 2020-11-12 06:20 | NUR ---
PT PROGRESSING TOWARDS D/C GOALS. VSS AFEBRILE. NO C/O PAIN THIS AM PT ANXIOUS TO GO HOME.
[2020-11-12 07:42] VITALS: BP 132/67
[2020-11-12] MEDS ORDERED: CEFUROXIME250 MG PO (08:51)
--- NOTE | 2020-11-12 10:46 | NUR ---
care taken over this am, pt alert and oriented x4, denies any pain, nausea and vomitting. pt on room air, no signs of distress noted. anticipating for d/c today. pt refuse rehab, plan is to go home with hh. denies any needs at the moment .Will continue to monitor
[2020-11-12 13:23] VITALS: BP 132/67
--- NOTE | 2020-11-12 13:30 | NUR ---
DISCHARGE NOTE: DONTE reviewed chart and spoke with nursing and attending physician. Pt is medically stable to discharge today. Orders written for pt to discharge home with services. DONTE met with pt at bedside to discuss discharge plan. Pt is agreeable with discharging home today with . Pt was recently on service with [facility] and would like to use them again. DONTE confirmed pt's home address. Pt lives at home with her dtr, Jessica and son, Mustapha. Pt's son, Faustino is a gasoline truck crane operator and is currenlty out of town. Pt's sisters, Roxanna and Bridgette both are not able to drive. DONTE arranged stretcher van transportation through [employer] between [phone]. Pt aware and states she will notify her family. Director of Case Mgmt approved transportation. DONTE faxed HH referral and discharge orders/summary to [facility] and notified liaison of referral and pt's discharge. Contact info for [facility] placed in pt's discharge summary. Pt's nurse updated regarding transportation home. No additional SW needs identified at this time, but is available to assist should needs arise.
[2020-11-12 15:22] VITALS: BP 132/67
--- NOTE | 2020-11-12 16:12 | NUR ---
IV TAKEN OUT, TELE D/C. PT HOME CLOTHES PUT. DISCHARGE PAPERWORK AND NEW MED INFO GIVEN TO PT. PT DENIES ANY QUESTIONS. TRANSPORTATION HERE FOR PT.
== END 2020-11-12 16:05 | disposition home health service (06) | DRG 682 ==
LOC: ER 12:28 → EROBS 14:21 → 3W 14:21
PROVIDERS: Internal Medicine; Nurse Practitioner; Student in an Organized Health Care Education/Training Program; ADMIT Hospitalist; ATTEND Hospitalist
DX: N17.9 Acute kidney failure, unspecified (principal); G93.41 Metabolic encephalopathy; I69.351 Hemiplegia and hemiparesis following cerebral infarction affecting right dominant side; N30.90 Cystitis, unspecified without hematuria; E11.9 Type 2 diabetes mellitus without complications; I10 Essential (primary) hypertension; E78.5 Hyperlipidemia, unspecified; E03.9 Hypothyroidism, unspecified; E66.9 Obesity, unspecified; E11.40 Type 2 diabetes mellitus with diabetic neuropathy, unspecified; M17.11 Unilateral primary osteoarthritis, right knee; I48.91 Unspecified atrial fibrillation; Z79.4 Long term (current) use of insulin; Z79.01 Long term (current) use of anticoagulants; I69.392 Facial weakness following cerebral infarction; Z79.899 Other long term (current) drug therapy; Z88.5 Allergy status to narcotic agent; Z95.0 Presence of cardiac pacemaker; Z68.33 Body mass index [BMI] 33.0-33.9, adult
CPT/HCPCS: 10879

== ENCOUNTER 2021-06-29 16:35 | Inpatient (IN) | payer OTHER ==
[~2021-06-29] VITALS: Ht 170.2 cm; Wt 108.5 kg
--- NOTE | ~2021-06-29 | EMS ---
[address] [address] EMS Patient Care Report Name: GRACIELA NUÑEZ Room #: 170-5 ADM IN M.R.#: [id number] Admission: 06/29/21 Attend Phys: Moo Guidry MD Discharge: Date of : 56 Report #: [id number] THIS REPORT FOR: //name// Report Transmitted: 06/30/2021 14:52 EMS Care Summary [place], [place]/[facility] Incident [id number] @ 06/29/2021 16:06 Incident Location [address] [facility] Patient GRACIELA NUÑEZ Female, 61 Years 1960 Patient Address [address] [place] [address] Patient History Sepsis,Type 2 Diabetes, Patient Allergies Hydrocodone, Patient Medications Other, Tamsulosin, Lovastatin, Pantoprazole, Levothyroxine, Chief Complaint ARM PAIN AND PARALYSIS Disposition Transported No Lights/[place] Dispatch Reason Sick Person Transported To [facility] Narrative M30 RECIEVED CALL FOR SICK PERSON. M30 ARRIVED ON SCENE TO FIND THE DAUGHTER WAVING CREWS DOWN IN THE PARKING LOT. DAUGHTER STATED THAT SHE WAS ATTEMPTING TO GET THE PT INTO THE VAN TO TAKE HER TO THE HOSPITAL FOR THE ARM PAIN AND PARALYSIS. BUT WAS UNABLE TO GET HER INTO HER POV SO SHE CALLED 911. M30 FOUND THE PT IN A WHEELCHAIR IN THE PARKING LOT NEXT [facility]. SHE [facility] [address] [place] [address] EMS Patient Care Report Name: GRACIELA NUÑEZ Room #: 1705 ADM IN M.R.#: [id number] Admission: 06/29/21 Attend Phys: Moo Guidry MD Discharge: Date of : 56 Report #: [id number] APPEARED TO BE IN NO DISTRESS OR PAIN. WITH THE HELP OF FIRE CREW ON SCENE PT WAS LIFTED OVER TO THE COT AND BUCKLED IN. PT WAS THEN WHEELED TO THE AMBULANCE AND LOADED IN. PT STATED THAT YESTERDAY SHE WAS UNABLE TO MOVE HER ARM AND THE PAIN STARTED THEN WELL. NO OTHER COMPLAINTS OR ISSUES. NO FALLS OR TRAUMA WELL. VITALS WERE TAKEN AND MONITORED ENROUTE TO [facility]. UPON ARRIVAL PT WAS UNLOADED AND WHEELED INTO THE HOSPITAL, THE ORIGINAL DESTINATION WAS TO BE TRIAGE BUT DUE TO PT UNABLE TO TRANSFER PT WAS TAKEN TO [facility] BED 2. REPORT WAS GIVEN TO [facility] ADMINISTRATOR AND PT CARE WAS TRANSFERED. PT HAD NO BELONGINGS WITH HER. Initial Vitals @16:15P: 78,R: 16,BP: 121/72,Pain: 4/10,GCS: 15,Glucose: 161,CO: 6,SpO2: 95,Revised Trauma: 12, @16:17P: 73,R: 16,BP: 124/71,Pain: 4/10,GCS: 15,Glucose: 161,SpO2: 96,Revised Trauma: 12, Assessments @16:28MENTAL:No Abnormalities,SKIN:No Abnormalities,HEENT:Head/Face: No Abnormalities,Eyes: No Abnormalities,Neck/Airway: No Abnormalities,LUNG SOUNDS:General: No Abnormalities,Left Upper: No Abnormalities,Right Upper: No Abnormalities,Left Lower: No Abnormalities,Right Lower: No Abnormalities,ABDOMEN:General: No Abnormalities,Left Upper: No Abnormalities,Right Upper: No Abnormalities,Left Lower: No Abnormalities,Right Lower: No Abnormalities,PELVIS//GI:No Abnormalities,EXTREMITIES:Right Arm: Other,Left Arm: No Abnormalities,Left Leg: No Abnormalities,Right Leg: No Abnormalities,PULSE:NEURO:No Abnormalities, Impression Generalized Weakness Procedures @16:12 ALS Assessment Response: Unchanged @16:13 BLS Assessment Response: Unchanged Timeline 16:04,Call Received 16:04,Dispatch Notified 16:06,Dispatched 16:06,En Route 16:10,On Scene 16:12,At Patient 16:12,ALS Assessment,Response: Unchanged 16:13,BLS Assessment,Response: Unchanged 16:15,BP: 121/72 M,PULSE: 78,RR: 16 R,SPO2: 95 Ox,ETCO2: ,B,PAIN: 4,GCS: 15, [place] [address] EMS Patient Care Report Name: GRACIELA NUÑEZ Jamey Room #: 170-5 ADM IN M.R.#: [id number] Admission: 06/29/21 Attend Phys: Moo Guidry MD Discharge: Date of : 56 Report #: [id number] 16:17,BP: 124/71 M,PULSE: 73,RR: 16 R,SPO2: 96 Ox,ETCO2: ,B,PAIN: 4,GCS: 15, 16:18,Depart Scene 16:42,At Destination 16:45,Call Closed Disclaimer v1.1 Copyright 2020 [employer] This EMS Care Summary contains data elements from the applicable legal record (which may be displayed differently). It is designed to provide pertinent information for the following purposes: continuity of care, clinical quality, and state data reporting. The complete legal record is available to ED staff and administrators of the receiving hospital in [employer] Patient Tracker. All data is provided "as is."
--- NOTE | ~2021-06-29 | EEG ---
[facility] [place] [address] ELECTROENCEPHALOGRAM Name: GRACIELA NUÑEZ Room #: 219-P [facility] IN M.R.#: [id number] Admission: 06/29/21 Attend Phys: Moo Guidry MD Discharge: Date of : 56 Report #: [id number] THIS REPORT FOR: //name// DATE OF SERVICE: 07/02/2021 This patient is being evaluated for nonconvulsive seizures because she is weak on the right side, but MRI is unremarkable. Background activity in this patient's EEG is about 8 Hz and 30 microvolts. Photic stimulation is unremarkable. No active epileptiform activity was noticed. IMPRESSION: This patient's EEG shows generalized slowing that is a nonspecific abnormality which can occur with encephalopathy, effect of psychotropic medication, dementia, etc. Clinical correlation is recommended. By: 00 10 Aristides Trujillo MD /nt
--- NOTE | ~2021-06-29 | HC ---
[facility] [place] [address] CONSULTATION Name: GRACIELA NUÑEZ Room #: 170-5 ADM IN ..#: [id number] Admission: 06/29/21 Attend Phys: Moo Guidry MD Discharge: Date of : 56 Report #: [id number] THIS REPORT FOR: cc: Betty Morris MD, Nora P. MD Khosla, Parveen K. MD ~ DATE OF SERVICE: 06/30/2021 HISTORY OF PRESENT ILLNESS: A 61-year-old female patient who is known to me from prior admissions and I reviewed those extensive records and I reviewed the records in the computer. I saw the patient along with the nurses and I reviewed her extensive records, which are there in the computer. I did not have any records available from [facility]. This patient has a prior history of CVA. She went to [facility] and they noticed that this patient had a UTI. Since yesterday, she is unable to move the right arm. She said she was able to move it before, but she cannot move it now. I do not know what workup was done in [facility] in this patient because I do not have those records. REVIEW OF SYSTEMS: This patient has an unexplained weakness of both lower extremities. I am not sure what the etiology of that is. Extensive workup has been unremarkable in that regard in this patient. At this time, she had a CT angiogram and that showed a question of decreased flow and on the right side, that will not correlate with the patient's symptoms. She has gone to the snf. It looks like the family did not like the snf and she had multiple workups in the past when she was here in the past. There is an extensive admission history and physical note which was reviewed. The patient also has a history of atrial fibrillation and apparently she is on anticoagulation. She does not feel that weakness in the leg is any different than before. She had a history of hypertension, hyperlipidemia, sepsis, atrial fibrillation, CVA with residual right-sided weakness, which became worse yesterday, lymphedema, chronic kidney disease, GERD, renal stones. At one time, she used to be aphasic, but she did become better. When she came in, her GFR was 38. She did have a CT angiogram that time and actually GFR is better today at 50. PAST MEDICAL HISTORY: Positive for CVA as well as a pretty pronounced right-sided weakness, which is the patient's baseline. FAMILY HISTORY: Unremarkable. SOCIAL HISTORY: Presently, she lives in a snf. PHYSICAL EXAMINATION: GENERAL: Indicate she is alert. She can talk and in fact was able to tell me what month and what date it is and what hospital she is in. She does appear to [facility] [address] [place] [address] CONSULTATION Name: GRACIELA NUÑEZ Room #: 170-5 ADM IN M.R.#: [id number] Admission: 06/29/21 Attend Phys: Moo Guidry MD Discharge: Date of : 56 Report #: [id number] have some right facial palsy, but she has absolutely no movement in the right upper extremity and the lower extremity, she has very little movement, but she said she can appreciate the position sense. VITAL SIGNS: Blood pressure is 140/65, respirations 17, pulse is 70. LABORATORY DATA: Indicate that the urinalysis is not back, but the CT angiogram that was done in the Emergency Room showed a question of problem in the lungs. She does not appear to have any respiratory difficulty. IMPRESSION: This patient clinically looks like had a stroke in the past, but she is worse now. In the past, some time, it has happened because of encephalopathy and other time it has happened because of recurrent cerebrovascular accident. The other problem is that the patient did have Klebsiella sepsis and that can lead to some seeding of infection in the brain of the spine. Because of that, I will go ahead and do MRI of the brain and C-spine. I will defer to the hospitalist to see if they plan to do anything about the patient's finding on the CT scan in this patient. Thank you very much for this referral and if you have any questions, please feel free to contact me. More than 50 minutes of time was spent taking care of this patient today and majority was spent counseling and coordinating. By: [id number] Aristides Trujillo MD /nt
[~2021-06-29 16:35] MED LIST changes: +CEFUROXIME250 MG PO
[2021-06-29 16:36] VITALS: BP 119/56
[2021-06-29 17:25] LABS: ABSOLUTE NEUTROPHILS 7.7 thou/uL (1.4-8.2); BASOPHILS 0.2 % (0.0-2.0); HEMATOCRIT 35.2 % (37.0-47.0); HEMOGLOBIN 11.2 gm/dL (12.0-15.0); LYMPHOCYTES 16.3 % (24.0-44.0); MCH 25.7 pg (26.0-34.0); MCHC 31.7 g/dL (28.0-37.0); MCV 80.9 fL (80.0-100.0); MONOCYTES 5.1 % (1.0-8.0); PLATELET COUNT 210 thou/uL (150-400); POLYS 77.4 % (36.0-66.0); RBC 4.35 mil/uL (4.20-5.00); RDW 19.1 % (10.5-14.5); WBC 9.9 thou/uL (4.0-11.0)
[2021-06-29 17:49] LABS: APTT 31.7 Seconds (24.5-32.8); INR 1.36; PROTIME 14.6 Seconds (10.5-12.1)
[2021-06-29 17:52] LABS: ALBUMIN 1.8 g/dL (3.4-5.0); CALCIUM 8.9 mg/dL (8.5-10.1); CREATININE 1.4 mg/dL (0.6-1.0); TOTAL BILIRUBIN 0.9 mg/dL (0.2-1.0); TOTAL PROTEIN 7.4 g/dL (6.4-8.2)
[2021-06-29 17:55] LABS: POTASSIUM 2.7 mmol/L (3.5-5.1)
--- NOTE | 2021-06-29 19:18 | NUR ---
JON BRITT ([facility]) [phone]
[2021-06-30 06:12] LABS: HEMATOCRIT 30.3 % (37.0-47.0); HEMOGLOBIN 9.5 gm/dL (12.0-15.0); MCH 25.4 pg (26.0-34.0); MCHC 31.5 g/dL (28.0-37.0); MCV 80.8 fL (80.0-100.0); RBC 3.76 mil/uL (4.20-5.00); RDW 18.8 % (10.5-14.5)
[2021-06-30 06:22] LABS: CALCIUM 8.8 mg/dL (8.5-10.1); CREATININE 1.1 mg/dL (0.6-1.0)
[2021-06-30 06:24] LABS: CHOLESTEROL 97 mg/dL (<200); HDL CHOLESTEROL 17 mg/dL (>40); LDL CHOLESTEROL 56 mg/dL (<100); TC:HDL 5.7 Ratio (Not establshd); TRIGLYCERIDE 120 mg/dL (<150); VLDL 24 mg/dL (<40)
[2021-06-30 06:27] LABS: SERUM ASSESSMENT Clear
[2021-06-30 08:00] VITALS: BP 130/75
--- NOTE | 2021-06-30 11:17 | NUR ---
AT THE TIME OF RN'S ASSESSMENT PT IS SOILED, APPEARS TO HAVE MENORRHEA MOD/LARGE AMOUNT, BM SOFT BROWN STOOL PRESENT IN BRIEFS, EXCORIATION AT THE ANUS PRESENT, ALSO APPEARS TO BE LARGE SIZED DEEP TISSUE INJURY TO THE GENERAL BUTTOCKS AREA;PURPLISH IN HUE. BOTH LOWER EXTREMETIES HAVE EXTENSIVE WOUNDS. PT APPEARANCE LOOKS UNKEPT W/ POOR HYGEINE. PT WAS LEFT WITHOUT A BREIF ON TO HELP FACILITATE HEALING OF EXCORIATION, MANAGER DISCOVERY IN THE ROOM RIGHT NOW PERMORNING MRI SCREENING
--- NOTE | 2021-06-30 11:22 | EKG ---
[address] [address] [place] [address] ELECTROCARDIOGRAM REPORT Name: GRACIELA NUÑEZ Room #: 170-5 ADM IN ..#: [id number] Admission: 06/29/21 Attend Phys: Moo Guidry MD Discharge: Date of : 56 Report #: [id number] [facility] ED Test Date: 2021-06-29 Test Time: 17:52:28 Pat Name: GRACIELA NUÑEZ Department: Room: 170 Gender: F Skidder Driver: amelia : 1960 Requested By: Josue Mcqueen Order Number: [id number] MD: Ector Gallegos Measurements Intervals [place] Rate: 69 P: [place]: QRS: 77 QRSD: 162 T: 246 QT: 431 QTc: 462 Interpretive Statements Artifact, Suspect AFIB LBBB Baseline wander in lead(s) V1 Compared to ECG 11/07/2020 12:44:52 Ventricular-paced complex(es) or rhythm no longer present Electronically Signed On 06-30-2021 11:21:56 FERRY ENGINEER by Ector Gallegos [email or web address] <ELECTRONICALLY SIGNED> By: Ector Gallegos MD, [facility] 06/30/21 1121 51 51 Ector Gallegos MD, FAC /EPI
[2021-06-30 12:00] VITALS: BP 145/65
[2021-06-30 16:00] VITALS: BP 135/70
--- NOTE | 2021-06-30 17:46 | NUR ---
Case opened to follow for dc planning. Request rec'd to call pt's sister Suzanne Alvarez for SNF referrals to other facilities. Call placed and Suzanne indicates that the pt was at [facility] for only 4 days after a 4week stay at [facility]. She has been at home living with her two sons since her last admission here in November 2020;she was dc'd to home with [facility]. Her sister reports she was doing well at home until her admission to [facility] with sepsis/klebsiella. She is being seen by wound care and is very weak with hx of prior cva with rt sided weakness. She is being seen by neuro as well and MRI is pending. Pt's sister indicates the pt/family do not want to return to [place] and prefer a location close to her or other family in [facility], or [place]. SNf options reviewed. Suzanne notes the pt's goal is to return to living with her sons vs ltc placement;however she is very debilitated at this time. Therapy evals in progress. Snf referral to [facility] and bed status faxed to [facility], and [facility]. They do not want [facility]. Will follow.
--- NOTE | 2021-06-30 19:39 | NUR ---
ATTEMPTED TO CALL REPORT TO THE FLOOR. RN UNAVAILABLE AND WILL CALL BACK SOON FOR REPORT.
--- NOTE | 2021-06-30 20:26 | NUR ---
REPORT CALLED TO [facility]. [employer] SUPERVISOR TO TRANSPORT PT.
[2021-06-30 20:28] VITALS: BP 148/67
[2021-06-30 21:02] VITALS: BP 147/75
[2021-07-01 01:06] LABS: GLYCOHEMOGLOBIN (HGB A1C) 7.9 % (4.8-5.6)
[2021-07-01 04:42] LABS: CREATININE 1.1 mg/dL (0.6-1.0); POTASSIUM 3.7 mmol/L (3.5-5.1)
[2021-07-01 05:02] LABS: HEMATOCRIT 31.4 % (37.0-47.0); HEMOGLOBIN 9.9 gm/dL (12.0-15.0); MCHC 31.5 g/dL (28.0-37.0); MCV 82.6 fL (80.0-100.0); RBC 3.79 mil/uL (4.20-5.00); RDW 18.9 % (10.5-14.5); WBC 8.8 thou/uL (4.0-11.0)
[2021-07-01 08:00] VITALS: BP 136/67
--- NOTE | 2021-07-01 09:55 | NUR ---
Consider Mg supplementation r/t low Mg lab and Niacin supplement r/t low HDL.
--- NOTE | 2021-07-01 10:22 | HC ---
[facility] [place] [address] CONSULTATION Name: GRACIELA NUÑEZ Room #: 219-P [facility] IN M.R.#: [id number] Admission: 06/29/21 Attend Phys: Moo Guidry MD Discharge: Date of : 56 Report #: [id number] THIS REPORT FOR: cc: Betty Morris MD, Nora P. MD Althoff, Jeffrey R. MD ~ DATE OF SERVICE: 06/30/2021 CHIEF COMPLAINT: Left heel ulcer. HISTORY OF PRESENT ILLNESS: This is a 61-year-old female patient who was admitted through the Emergency Department with a circular ulceration on the plantar aspect of the left heel. She was apparently out in a wheelchair in the parking lot of her halfway facility. Reportedly, the patient has been found covered in her own feces, some right-sided weakness. She was noted to have an ulcer on the plantar aspect of her left heel and I have been asked to see her in this regard. The patient is awake, slow to answer questions. PAST MEDICAL HISTORY: Positive for hypertension, hyperlipidemia, history of sepsis, atrial fibrillation, cerebrovascular accident with right-sided weakness, lower extremity lymphedema, obesity, diabetes, chronic kidney disease, urinary retention, and dysphagia. She has a previous pacemaker, atrial fibrillation. SOCIAL HISTORY: No history of alcohol or tobacco use. FAMILY HISTORY: Noncontributory. ALLERGIES: CODEINE. MEDICATIONS: Include amitriptyline, Eliquis, Lipitor, Ceftin, Neurontin, hydralazine, insulin, levothyroxine, pantoprazole, tamsulosin. REVIEW OF SYSTEMS: Limited due to the patient's expressive aphasia, other than that mentioned in the history of present illness above. PHYSICAL EXAMINATION: VITAL SIGNS: At this time include temperature 37.0, pulse 70, respiration 17, blood pressure 140/65. GENERAL: This is a chronically ill-appearing female patient who appears to be in mild discomfort. HEENT: Head normocephalic. Nose and throat are clear. NECK: Supple. LUNGS: Diminished. HEART: Irregular without obvious murmur. ABDOMEN: Soft and nontender. EXTREMITIES: Lower extremities demonstrate nonpalpable distal pulses, but the [facility] [address] [place] [address] CONSULTATION Name: GRACIELA NUÑEZ Room #: 219-P [facility] IN [facility]#: [id number] Admission: 06/29/21 Attend Phys: Moo Guidry MD Discharge: Date of : 56 Report #: [id number] feet are pink, warm, and dry. She has lymphedema, bilateral lower extremities, but no overt cellulitis. There is a circular area of eschar on the plantar aspect of the left heel. It is not infected. It appears to be dry and intact and stable at this time. No separation along the edges. NEUROLOGIC: The patient has some right-sided weakness. LABORATORY DATA: Sodium 146, potassium 3.0, chloride 111, CO2 of 26, BUN 18, creatinine 1.1, glucose 105, calcium is 8.8. White blood cell count 9000 with a hemoglobin of 9.5, hematocrit of 30.3. CLINICAL IMPRESSION: 1. Unstageable pressure ulcer, plantar aspect of the left heel. 2. Lymphedema, bilateral lower extremities. 3. History of cerebrovascular accident with right-sided weakness. 4. Hypertension. 5. Hyperlipidemia. 6. Atrial fibrillation. 7. Chronic kidney disease. 8. Type 2 diabetes mellitus. 9. Severe protein-calorie malnutrition. RECOMMENDATIONS: At this point in time, we will recommend topical Betadine "[place]" to the area of eschar on the left heel and then dry gauze daily. She will need Prevalon boots for pressure prophylaxis and we will check an arterial Doppler. With regard to the lymphedema, recommend elevation initially. If her Doppler shows reasonably good flow, then we can add compression while she is here. I do not think that we need to debride the eschar on the heel. I think keeping it dry, stable and intact will allow the eschar to remain protective and hopefully will peel off in time. I appreciate being asked to see her in consultation. <ELECTRONICALLY SIGNED> By: Jadon Hurtado MD 07/01/21 1022 1629 40 Jadon Hurtado MD /nt
[2021-07-01 11:00] VITALS: BP 133/69
--- NOTE | 2021-07-01 15:41 | NUR ---
Assumed care of pt this AM. Pt is A&O x3-4, on RA, Vpaced on the monitor. Plan for MRI today. Pt has wounds to bilat heels, buttocks, and rt thigh. Pt w/ abnrl vaginal bleeding. Bess in place & patent. Pt c/o back pain, given PRN medication. Rt sided hemiparesis from previous stroke. Frequent rounding in place.
--- NOTE | 2021-07-01 15:58 | NUR ---
[facility] CAN ACCEPT PT FOR SKILLED SERVICES ONCE MEDICALLY STABLE TO DISCHARGE. CM WENT TO MEET PT AT BEDSIDE HOWEVER PT WAS ASLEEP. CM CALLED PTS SISTER JON. REVIEWED SKILLED FACILITIES IN NETWORK WITH [facility]. EMAILED HER A LIST WELL FOR HER REVIEW. JON REPORTED THEY WILL NOT CHOSE A FACILITY UNTIL HER AND HER SISTERS GO LOOK AT IT FIRST. JON REMINDED THIS CM HOW DISSATIFIED THEY WERE THE CARE RECEIVED AT [facility] AND WILL NOT RETURN NOR SEND HER ANYWHERE ELSE WITHOUT VISITING FIRST. PLAN TO VISIT [facility] TH OR WED AT THE LATEST. THIS CM SPOKE TO STEFANO AT [facility] AND INFORMED THEM OFF THEIR WISH TO VISIT. ONCE A DECISION IS MADE [facility] WITH SUBMIT FOR INS AUTH. CM FOLLOWING.
[2021-07-01 16:00] VITALS: BP 135/73
[2021-07-01 20:15] VITALS: BP 130/73
[2021-07-02 04:45] VITALS: BP 131/64
[2021-07-02 08:22] VITALS: BP 152/65
--- NOTE | 2021-07-02 09:35 | NUR ---
Assumed care of pt this A&O x4, flat. Pt is on RA, Vpaced w/ BBB on the monitor. Pt c/o back pain, 8-10/10, requesting PRN pain medication as available. Plan to have EEG done today & video swallow study. High fall precautions in place.
--- NOTE | 2021-07-02 11:53 | NUR ---
CM SPOKE TO PTS SISTER JOHN THIS AM. JOHN REPORTED SHE WOULD LIKE PT TO GO TO [facility] HER FATHER WAS A PT THERE IN THE PAST AND PT AND SISTERS REALLY LIKED IT. REFERRAL SENT TO [facility].
[2021-07-02 12:11] VITALS: BP 133/70
[2021-07-02 15:03] VITALS: BP 115/58
[2021-07-02 20:11] VITALS: BP 125/64
--- NOTE | 2021-07-03 04:27 | NUR ---
PT IS ALERT AND ORIENTED X4. LUNGS ARE CLEAR ABDOMEN IS ROUND BOWEL SOUNDS ACTIVE. PT ON ROOM AIR. MULTIPLE WOUNDS BARRIER CREAM TO COCCYC AREA AND TURN Q2 HOURS. COMPLAINS OF BACK PAIN AND PAIN MEDS GIVEN SEE MAR FOR TIME OF ADMINISTRATION. PT RESTING COMFORTABLY AFTER PAIN MEDS. PT HAS VAGINAL BLEEDING. ONGING NURSING CARE AND ASSESSMENTS PER NURSING.
[2021-07-03 05:04] VITALS: BP 115/52
[2021-07-03 07:00] VITALS: BP 129/56
[2021-07-03 11:30] VITALS: BP 123/64
[2021-07-03 15:00] VITALS: BP 141/71
--- NOTE | 2021-07-03 15:59 | NUR ---
PATIENT SISTER AT BEDSIDE. CM MET MET WITH THEM THIS DAY. BOTH AGREEABLE TO TRANSFER TO [facility] THEY HAVE ACCEPTED PT. THEY DO NOT HAVE BED OPEN UNTIL NEXT WEEK. SPOKE TO PT AND SISTER AGAIN AND AGREEABLE TO SEND REFERRAL TO [facility]. [phone]. THIS CM CALLED [facility] X [facility]. RECEIVED A RETURN CALL FROM [facility] ASKING ABOUT PT LEAVING AMA AT [facility] PRIOR TO ADMISSION. INSTRUCTED PT AND SISTER NOT HAPPY WITH CARE AT [facility]. WAS NOTIFIED BY [facility] THAT [facility] HAS A NEW DON VERY INVOLVED IN FACILTY AND THEY ARE WILLING TO TRY FOR SNF SERVICES. [facility] INFORMED THIS CM SHE WOULD CALL BACK WITH REFERRAL ACCEPTANCE OR DENIAL. DID NOT RECEIVE A CALL AT THIS TIME. CALL PLACED TODAY AT 33OP AND LEFT A MESSAGE. SHOULD THEY ACCEPT PT OVER THE WEEKEND PLEASE CALL REPORT TO [phone] AND FAX DC ORDERS AND SUMMARY WITH DC PKT TO [phone]. RN, PT AND SISTER, AND PHYSICIAN AWARE NO DC TODAY.
[2021-07-03 17:00] VITALS: BP 139/61
[2021-07-03 19:45] VITALS: BP 145/78
--- NOTE | 2021-07-04 03:41 | NUR ---
Assumed pt care at 1900. Pt is alert and oriented. No sign of distress noted in pt. Pt is laying in bed. No acute event during the night. Assessment completed and documented. Vital signs stable. Pain medication administered upon request. Scheduled meds administered to pt. Tolerated PO intake. No acute event during the night. Continue to monitor. No further needs at this time.
[2021-07-04 04:51] VITALS: BP 132/78
[2021-07-04 09:42] VITALS: BP 147/82
[2021-07-04 12:50] VITALS: BP 139/55
[2021-07-04 17:13] VITALS: BP 144/64
[2021-07-04 20:00] VITALS: BP 144/76
[2021-07-05 04:00] VITALS: BP 146/68
--- NOTE | 2021-07-05 07:25 | NUR ---
PT IS A&o X4 BUT MODERATELY FORGETFUL. NIH OF 12 THIS SHIFT. PT ENDORCES GENERALIZED PAIN AND DISCOMFORT- PRNs PROVIDED. Q2 TURNS PERFORMED. VSS, NO ACUTE EVENTS AT THIS TIME
[2021-07-05 09:00] VITALS: BP 142/67
[2021-07-05 17:00] VITALS: BP 140/72
[2021-07-05 19:36] VITALS: BP 149/78
[2021-07-06] VITALS (10 sets, daily range): BP systolic 114–155; BP diastolic 65–82
--- NOTE | 2021-07-06 03:14 | NUR ---
ASSESSMENTS CHARTED, MEDS CHARTED GIVEN. PATIENT RESTING IN BED DURING SHIFT. VPACED, ON ROOM AIR, BRANDT IN PLACE. C/O BACK PAIN AT START OF SHIFT. MORPHINE GIVEN. PATIENT DOES NOT LIKE TO BE REPOSITIONED.
[2021-07-07] VITALS (7 sets, daily range): BP systolic 124–150; BP diastolic 55–80
--- NOTE | 2021-07-07 06:37 | NUR ---
ASSESSMENTS CHARTED, MEDS CHARTED GIVEN. PATIENT RESTING IN BED DURING SHIFT. SEEMS MORE ALERT DURING BEGINNING OF SHIFT. PAIN LEVEL NOT ELEVATED THEY WERE THE NIGHT BEFORE. PATIENT HAD VAGINAL BLEEDING DURING SHIFT.
--- NOTE | 2021-07-07 11:38 | NUR ---
RONALD SPOKE TO STEFANO WITH [facility]. SHE REPORTS FACILITY UNABLE TO TAKE ADMISSIONS TODAY RELATED TO STAFFING SHORTAGE. SHE ANTICIPATES SHE IS HOPING TO ACCEPT TOMORROW. CLINICAL UPDATES SENT TO [facility] AND THEY ARE SUBMITTING AUTH. DR LARISSA OLIVARES.
--- NOTE | 2021-07-07 17:06 | NUR ---
CM SPOKE TO CAT WITH [facility] TO INQUIRE ABOUT REFERRAL SENT LAST WEEK. REPORTED FAX RECIEVED HOWEVER WAS NOT FORWARDED TO ADMISSIONS TEAM. CAT IMMEDIATELY SENT TO ADMISSIONS TEAM AND WILL LET THIS CM KNOW OF ACCEPTANCE. THIS REFERRAL SENT IN CASE PT UNABLE TO GO TO [facility] PER PT AND SISTER JON REQUEST.
--- NOTE | 2021-07-07 19:15 | NUR ---
PATIENT INCREASING USE OF FEET EXERCISES THROUGHOUT THE DAY. PATIENT'S APPETITE INCREASING THOUGH HAD BOUT OF NAUSEA THIS MORNING. PATIENT EXHIBITED ITCHINESS THIS SHIFT. ALLEVIATED THROUGH ANTIHISTAMINE MEDICATION. PATIENT PAIN MEDICATION USED THOUGH NOT OPIOID-BASED. PATIENT DELIGHTED WITH USE OF CELL PHONE PURCHASED BY SISTER TODAY. PATIENT PROGRESSIVELY FEEDING SELF.
--- NOTE | 2021-07-08 | NUR ---
PT COMPLAINED EPIGASTRIC PAIN THAT HAD STARTED AFTER DINNER RATING PAIN AT 6/10 AND PROGRESSING.PT DESCRIBED PAIN CONSTANT AND ACHING THAT DOES NOT RADIATES.SHE ALSO C/O BACK PAIN THAT IS CHRONIC.SHE ALSO C/O NAUSEA WITHOUT VOMITING.EKG DID NOT SHOW ANY S/SX OF ACS,TROPONIN WAS NEGATIVE.PT DENIES SOB.VSS. SCREEN VENT BINDER WAS NOTIFIED,N/O WAS GIVEN TO GIVE GI COCKTAIL.PT VERBALIZED PARTIAL RELIEF FROM PAIN AFTER TAKING GI COCKTAIL.TYLENOL WAS ALSO GIVEN FOR BACK PAIN.PT DENIES ANY OTHER NEEDS.
[2021-07-08 04:45] VITALS: BP 167/84
--- NOTE | 2021-07-08 07:37 | EKG ---
[address] [address] [facility] [place] [address] ELECTROCARDIOGRAM REPORT Name: GRACIELA NUÑEZ Room #: 219- ADM IN .R.#: [id number] Admission: 06/29/21 Attend Phys: Moo Guidry MD Discharge: Date of : 56 Report #: [id number] [facility] Test Date: 2021-07-07 Test Time: 21:53:43 Pat Name: GRACIELA NUÑEZ Department: Room: 219 Gender: F Automobile And Property Underwriter: ALEX : 1960 Requested By: Moo Guidry Order Number: [id number] MD: Hamilton Valenzuela Measurements Intervals [place] Rate: 71 P: [place]: QRS: 63 QRSD: 154 T: 265 QT: 426 QTc: 463 Interpretive Statements Afib/flut and V-paced complexes No further analysis attempted due to paced rhythm Compared to ECG 06/29/2021 17:52:28 Ventricular pacing is now present Electronically Signed On 07-08-2021 7:37:02 PEER FINANCIAL COUNSELOR by Hamilton Valenzuela [email or web address] <ELECTRONICALLY SIGNED> By: Hamilton Valenzuela MD, [facility] 07/08/21 0737 2153 215 Hamilton Valenzuela MD, [facility] /EPI
[2021-07-08 09:27] VITALS: BP 142/78
[2021-07-08 12:27] VITALS: BP 126/62
--- NOTE | 2021-07-08 16:02 | NUR ---
Pt dc to SNF at [facility] canceled as they do not have a bed and can not confirm when they will have one. SNF auth confirmed with [facility] #[id number] for CV but changed to [facility] in [place]. [facility] to confirm the auth via their portal access and they can accept this evening. Pt's sister Angela noted that [facility] was a preference. Suzanne notified by unit [facility] and CV can not commit to when a bed is available. Care team updated. Transport vouchered thru [facility] stretcher van this evening at 5:30 to 6:30. DC orders faxed to their liason. and sister updated on the dc time.
[2021-07-08 16:06] VITALS: BP 125/52
--- NOTE | 2021-07-08 18:04 | NUR ---
NO FALLS OR INJURIES THIS SHIFT. VSS. PATIENT ON RA, A&OX4. PATIENT TO DC TO [facility]. REPORT CALLED. IV, TELE PACK, AND BRANDT ALL REMOVED. PATIENT PROGRESSED TOWARD POC.
== END 2021-07-08 17:49 | DRG 640 ==
LOC: ER 16:35 → 2N 19:11 → EROBS 19:11 → 2N 06-30 20:49
PROVIDERS: Emergency Medicine; Nurse Practitioner Family; ADMIT Hospitalist; ATTEND Hospitalist
DX: E87.6 Hypokalemia (principal); L89.153 Pressure ulcer of sacral region, stage 3; E43 Unspecified severe protein-calorie malnutrition; G93.40 Encephalopathy, unspecified; I69.351 Hemiplegia and hemiparesis following cerebral infarction affecting right dominant side; L89.620 Pressure ulcer of left heel, unstageable; E89.0 Postprocedural hypothyroidism; E78.5 Hyperlipidemia, unspecified; M17.11 Unilateral primary osteoarthritis, right knee; E66.9 Obesity, unspecified; N18.9 Chronic kidney disease, unspecified; E11.22 Type 2 diabetes mellitus with diabetic chronic kidney disease; I89.0 Lymphedema, not elsewhere classified; R20.1 Hypoesthesia of skin; E83.42 Hypomagnesemia; N93.9 Abnormal uterine and vaginal bleeding, unspecified; I12.9 Hypertensive chronic kidney disease with stage 1 through stage 4 chronic kidney disease, or unspecified chronic kidney disease; R13.10 Dysphagia, unspecified; L89.219 Pressure ulcer of right hip, unspecified stage; S30.0XXA Contusion of lower back and pelvis, initial encounter; E11.51 Type 2 diabetes mellitus with diabetic peripheral angiopathy without gangrene; R93.89 Abnormal findings on diagnostic imaging of other specified body structures; E04.1 Nontoxic single thyroid nodule; I48.0 Paroxysmal atrial fibrillation; Z20.822 Contact with and (suspected) exposure to COVID-19; Z87.442 Personal history of urinary calculi; Z95.0 Presence of cardiac pacemaker; Z88.6 Allergy status to analgesic agent; Z68.37 Body mass index [BMI] 37.0-37.9, adult; Z87.891 Personal history of nicotine dependence
CPT/HCPCS: 10081